=== PATIENT | female | born 1940 | race Caucasian/White ===

== ENCOUNTER 2021-05-14 16:46 | Emergency (ER) | payer MEDICARE, BC, SELFPAY ==
[2021-05-14] VITALS (8 sets, daily range): BP systolic 123–159; BP diastolic 53–83; PULSE 79–103; RESP 14–20; TEMP 36.3–36.9; O2SAT 94–100; BMI 37.2
[2021-05-14 18:46] LABS: Absolute Lymphocyte Count 1.86 X10^3/uL (0.83-4.51); Absolute Neutrophil Count 8.2 X10^3/uL (2.0-7.7); Basophil# 0.06 X10^3/uL; Basophil% 0.5 % (0-1); Eosinophil# 0.18 X10^3/uL; Eosinophils% 1.6 % (0-5); Hematocrit 34.2 % (37-47); Hemoglobin 10.2 g/dL (12.0-15.0); Lymphocyte # 1.86 X10^3/ul (0.83-4.51); Lymphocyte % 16.4 % (19-41); Mean Corp Hgb Conc 29.8 g/dL (32-36); Mean Corpuscular Hgb 25.4 pg (27.0-32.0); Mean Corpuscular Volume 85.3 fL (81-99); Mean Platelet Vol. 9.8 fl (6.2-12.0); Monocyte# 1.01 X10^3/uL; Monocyte% 8.9 % (0-10); NRBC Flagged by Analyzer 0 % (0-5); Neutrophil % 72.2 % (47-70); POSITIVE MORPHOLOGY YES; Platelet Count 484 K/mm3 (150-450); RBC Distribution Width CV 20.5 % (11.6-14.6); RBC Distribution Width SD 63.2 fl (35.1-43.9); Red Blood Count 4.01 M/mm3 (4.2-5.4); White Blood Count 11.4 K/mm3 (4.4-11.0)
[2021-05-14 18:47] LABS: Differential Indicated SCAN CRITERIA MET
[2021-05-14 18:59] LABS: ALB/GLOB Ratio 0.7 RATIO (0.9-2.4); AST(SGOT) 14 U/L (15-37); Alanine Aminotransfer ALT/SGPT 29 U/L (13-56); Alkaline Phosphatase 82 U/L (45-117); Anion Gap 8 (5-15); BUN 18 mg/dL (7-18); BUN/Creat Ratio 20.1 RATIO (10-20); Calcium,Total 9.6 mg/dL (8.5-10.1); Chloride 98 mmol/L (98-107); EST Glomerular Filtration Rate 65 mL/min (>60); Est Glom Filt Rate - Afr Amer 78 mL/min (>60); Globulin 4.3 g/dL (2.2-4.2); Glucose 129 mg/dL (74-106); Potassium 3.1 mmol/L (3.5-5.1); Protein, Total 7.3 g/dL (6.4-8.2); Sodium Level 138 mmol/L (136-145)
--- NOTE | 2021-05-14 19:13 | EKG12_ITS ---
Test Reason : DYSRHYTHMIA Blood Pressure : / mmHG Vent. Rate : 092 BPM Atrial Rate : 092 BPM P-R Int : 162 ms QRS Dur : 094 ms QT Int : 376 ms P-R-T Axes : 051 009 038 degrees QTc Int : 464 ms Normal sinus rhythm Cannot rule out Inferior infarct , age undetermined Abnormal ECG Confirmed by GURMEET LOPEZ, DINORA ([id number]), restaurant expeditor SHELLIE CERVANTES ([id number]) on 05/18/2021 9:45:30 AM Referred By: ELSIE Confirmed By:MIKAYLA LEVI MD
--- NOTE | 2021-05-14 19:15 | EX.ED.DYSGE1 ---
HPI History of Present Illness Chief Complaint: Dizziness Detail of Chief Complaint: Dizziness that started this morning Informant: patient Narrative Narrative: Patient presents to the emergency department complaint of dizziness that started this morning. Patient states that after eating breakfast and taking her pills she started having sudden onset of vertiginous symptoms that made her very nauseated and she vomited several times. She continues to complain of the dizziness. She is not had symptoms like this before. Patient states that she was just discharged from the hospital yesterday for she was admitted to [facility] for CHF and leg edema. Patient's son states that she never saw a chief hydroelectric station operator or a kidney specialist. Patient denies any chest pain or shortness of breath currently. Patient denies fever or recent illness. Patient feels like her legs are starting swell again. Prior similar symptoms: No PFSH PFSH Medical History (Updated 05/14/21 @ 23:[address] Meliton Reza, DO) Acid reflux Anemia Asthma History of malaria Home Medications apixaban [Eliquis] 2.5 mg PO BID 05/14/21 [History Last Taken Unknown] doxepin 25 mg PO QHS 05/14/21 [History Last Taken Unknown] furosemide [Lasix] 40 mg PO DAILY 05/14/21 [History Last Taken Unknown] hydrocodone-acetaminophen 2 tab PO Q8H PRN 05/14/21 [History Last Taken Unknown] levofloxacin 500 mg DAILY 05/14/21 [History Last Taken Unknown] losartan 05/14/21 [History Last Taken Unknown] meclizine 25 mg PO TID PRN #20 tab 05/14/21 [Rx Last Taken Unknown] ondansetron 4 mg PO Q8H PRN PRN #10 tab 05/14/21 [Rx Last Taken Unknown] Allergy/AdvReac Type Severity Reaction Status Date / Time No Known Allergies Allergy Verified 05/14/21 18:35 Social History Smoking Status: Never smoker ROS ROS ED ROS Narrative Dizziness Constitutional Constitutional ED: Reports systems reviewed and no addt'l complaints, except as documented; Denies body ache(s), change in weight or chills Eyes Eyes: Denies acute decrease in peripheral vision, change in vision, double vision or loss of vision ENT ENT ED: Reports none; Denies ear pain, lip swelling, loss taste/smell, neck pain, otalgia or sore throat Cardiovascular Cardiovascular: Reports none; Denies abdominal pain, chest pain with activity, leg edema, lightheadedness, palpitations, rapid heart rate or syncope Respiratory/Chest Respiratory/Chest: Reports none; Denies change in mental status, dry cough, dyspnea, hemoptysis, shortness of breath at rest or shortness of breath with exertion Gastrointestinal Gastrointestinal: Reports none, nausea and vomiting; Denies abdominal pain, change in stool character, diarrhea, hematemesis, hematochezia, melena or rectal bleeding Genitourinary Genitourinary ED: Reports none; Denies abdominal discomfort, anuria, dysuria, genital pain or polyuria Musculoskeletal Musculoskeletal: Reports none; Denies arthralgias, back pain, difficulty walking, extremity pain, muscle weakness or myalgias Integumentary Reports none; Denies abscess or rash Neurologic Neurologic: Reports none; Denies abnormal gait, confusion, focal weakness, frequent falls, headache(s), loss of vision, numbness, paresthesias, radicular pain, vertigo or weakness Psychiatric Psychiatric: Reports systems reviewed and no addt'l complaints, except as documented and none; Denies behavioral changes, confusion, difficulty concentrating, hallucinations, suicidal ideation, tactile hallucinations or visual hallucinations Endocrine Endocrinology: Denies none, cold intolerance, excessive sweating, fatigue or heat intolerance Hematologic/Lymphatic Hematologic/Lymphatic: Reports none; Denies anemia, easy bleeding or easy bruising Allergic/Immunologic Allergic/Immunologic ED: Denies as per HPI, none, lip swelling, mouth swelling, throat swelling, tongue swelling or hives EXAM Physical Exam Const Vital Signs: 05/14/21 16:50 05/14/21 18:27 05/14/21 18:54 Temperature 97.3 F L Temperature Source Temporal Pulse Rate 90 79 Pulse Rate [Lying] Pulse Rate [Sitting] Pulse Rate [Standing] Respiratory Rate 18 15 Respiratory Effort Normal Respiratory Pattern Normal Blood Pressure 135/65 H 123/83 H Blood Pressure [Lying] Blood Pressure [Sitting] Blood Pressure [Standing] Blood Pressure Mean 88 96 Blood Pressure Mean [Lying] Blood Pressure Mean [Sitting] Blood Pressure Mean [Standing] Pulse Ox 97 98 Oxygen Delivery Method Room Air 05/14/21 18:56 05/14/21 18:57 05/14/21 20:02 Temperature 98.4 F 98.4 F 98.2 F Temperature Source Oral Oral Oral Pulse Rate 94 92 103 H Pulse Rate [Lying] 89 Pulse Rate [Sitting] 92 Pulse Rate [Standing] 100 Respiratory Rate 15 16 19 H Respiratory Effort Respiratory Pattern Blood Pressure 140/73 H 140/73 H 153/64 H Blood Pressure [Lying] 131/55 H Blood Pressure [Sitting] 150/69 H Blood Pressure [Standing] 159/71 H Blood Pressure Mean 95 95 93 Blood Pressure Mean [Lying] 80 Blood Pressure Mean [Sitting] 96 Blood Pressure Mean [Standing] 100 Pulse Ox 100 100 98 Oxygen Delivery Method Room Air Room Air Room Air 05/14/21 20:52 05/14/21 23:07 Temperature 97.9 F 98.0 F Temperature Source Oral Temporal Pulse Rate 98 101 H Pulse Rate [Lying] Pulse Rate [Sitting] Pulse Rate [Standing] Respiratory Rate 15 20 H Respiratory Effort Respiratory Pattern Blood Pressure 144/53 H 133/62 H Blood Pressure [Lying] Blood Pressure [Sitting] Blood Pressure [Standing] Blood Pressure Mean 83 85 Blood Pressure Mean [Lying] Blood Pressure Mean [Sitting] Blood Pressure Mean [Standing] Pulse Ox 99 94 Oxygen Delivery Method Room Air Room Air Positive well nourished and well developed General Appearance ED: well developed and NAD HEENT Reports TM's clear and moist mucous membranes normocephalic and atraumatic; Negative for trauma or tenderness Tympanic Membrane ED: Yes TM's clear Eyes PERRL and EOMs intact bilaterally General Eye ED: Negative for pale conjunctiva or scleral icterus Neck no lymphadenopathy, supple and no JVD General: Negative for tenderness Chest Wall inspection of chest normal and palpation of chest normal Chest: Negative for tenderness Resp normal respiratory effort and clear to auscultation bilaterally Effort and Inspection: Negative for respiratory distress or pain with movement Auscultation: Negative for rhonchi, wheezes or diminished lung sounds Cardio regular rate, regular rhythm, S1 normal heart sound, S2 normal heart sound and no murmurs Peripheral Pulses: pulses 2+ throughout GI normal to inspection, nondistended, normoactive bowel sounds, soft to palpation, non-tender, non-distended and no masses Back/Spine no CVA tenderness and no thoracic nor lumbar tenderness Back/Spine Narrative: Evaluation of patient's buttocks and coccyx reveal tenderness palpation over the tip of the coccyx without any evidence of abscess or cellulitis. There is an area of faint erythema noted. No ulcerations noted. Extremity normal to inspection Extremity Narrative: +1 edema both lower extremities. General Extremety ED: Yes edema General Extremity: edema Neuro oriented x3, CN's II-XII intact bilaterally, no sensory deficits noted and gait normal Sensorium / Orientation: awake, alert, oriented to person, oriented to place and oriented to time Motor Exam: strength 5/5 throughout and strength abnormal Psych mental status grossly normal Skin no rashes or lesions noted and no wounds MDM MDM MDM Narrative Medical decision making narrative: Patient to the ED with multiple complaints. Her main issue complaint today was vertigo associated with nausea and vomiting. I suspect likely BP V. Patient was given Antivert and Zofran and her symptoms resolved. Orthostatic vital signs were negative. Lab Data Labs: Laboratory Results - last 24 hr 05/14/21 05/14/21 05/14/21 18:30 18:30 18:30 WBC 11.4 H RBC 4.01 L Hgb 10.2 L Hct 34.2 L MCV 85.3 MCH 25.4 L MCHC 29.8 L RDW Std Deviation 63.2 H RDW Coeff of Khalida 20.5 H Plt Count 484 H MPV 9.8 Immature Gran % (Auto) 0.400 Neut % (Auto) 72.2 H Lymph % (Auto) 16.4 L Terry % (Auto) 8.9 Eos % (Auto) 1.6 Baso % (Auto) 0.5 Absolute Neuts (auto) 8.2 H Absolute Lymphs (auto) 1.86 Nucleated RBC % 0 Platelet Estimate SLT INC RBC Morphology N CHROM Hypochromasia RARE Anisocytosis RARE Ovalocytes RARE Sodium 138 Potassium 3.1 L Chloride 98 Carbon Dioxide 32.0 Anion Gap 8 BUN 18 Creatinine 0.90 Estim Creat Clear Calc 64.60 Est GFR (MDRD) Af Amer 78 Est GFR (MDRD) Non-Af 65 BUN/Creatinine Ratio 20.1 H Glucose 129 H Calcium 9.6 Total Bilirubin 0.40 AST 14 L ALT 29 Alkaline Phosphatase 82 Troponin I High Sens 5.9 B-Natriuretic Peptide Total Protein 7.3 Albumin 3.0 L Globulin 4.3 H Albumin/Globulin Ratio 0.7 L Urine Color Urine Clarity Urine pH Ur Specific [place] Urine Protein Urine Glucose (UA) Urine Ketones Urine Occult Blood Urine Nitrite Urine Bilirubin Urine Urobilinogen Ur Leukocyte Esterase Urine RBC Urine WBC Ur Squamous Epith Cells Urine Bacteria Urine Mucus 05/14/21 05/14/21 18:30 20:10 WBC RBC Hgb Hct MCV MCH MCHC RDW Std Deviation RDW Coeff of [place] Plt Count MPV Immature Gran % (Auto) Neut % (Auto) Lymph % (Auto) Terry % (Auto) Eos % (Auto) Baso % (Auto) Absolute Neuts (auto) Absolute Lymphs (auto) Nucleated RBC % Platelet Estimate RBC Morphology Hypochromasia Anisocytosis Ovalocytes Sodium Potassium Chloride Carbon Dioxide Anion Gap BUN Creatinine Estim Creat Clear Calc Est GFR (MDRD) Af Amer Est GFR (MDRD) Non-Af BUN/Creatinine Ratio Glucose Calcium Total Bilirubin AST ALT Alkaline Phosphatase Troponin I High Sens B-Natriuretic Peptide 12.5 Total Protein Albumin Globulin Albumin/Globulin Ratio Urine Color Yellow Urine Clarity Clear Urine pH 6.5 Ur Specific [place] 1.010 Urine Protein Negative Urine Glucose (UA) Normal Urine Ketones Negative Urine Occult Blood 50 H Urine Nitrite Negative Urine Bilirubin Negative Urine Urobilinogen Normal Ur Leukocyte Esterase 25 H Urine RBC 0-5 SEEN Urine WBC 0-5 SEEN Ur Squamous Epith Cells 0 SEEN Urine Bacteria 0 SEEN Urine Mucus 0 SEEN Radiography Diagnostic Testing: Radiology Impression Chest X-Ray 05/14/21 20:18 IMPRESSION: No acute cardiopulmonary disease. Electronically Signed: Sumanth Guerrier DO at 20:49 EDT Tel [phone], Service support , Sacrum and Coccyx X-Ray 05/14/21 22:40 IMPRESSION: No acute abnormality of the sacrum and coccyx. Electronically Signed: Sumanth Guerrier DO at 23:01 EDT Tel [phone], Service support , 1 view chest x-ray obtained interpreted by myself no acute disease process. Radiology was in agreement. Patient also had x-rays of coccyx and sacrum which were interpreted by myself as normal and radiology in agreement. EKG Initial EKG: Attestation: I personally reviewed and interpreted this EKG as follows: Comments: Sinus rhythm with a ventricular rate of 92 bpm Discharge Plan Triage Chief Complaint: Dizziness ED Provider: Meliton Reza Dx/Rx/DC Orders Clinical Impression: Benign paroxysmal positional vertigo, Chronic coccygeal pain Instructions: ED BPV Vertigo Prescriptions: New ondansetron [ondansetron] 4 MG tablet 4 mg PO Q8H PRN PRN (Reason: Nausea) Qty: 10 RF: 0 meclizine 25 mg tablet 25 mg PO TID PRN (Reason: dizziness) Qty: 20 RF: 0 No Action doxepin 25 mg Capsule 25 mg PO QHS RF: 0 hydrocodone-acetaminophen 5-325 mg Tablet 2 tab PO Q8H PRN (Reason: Pain) RF: 0 levofloxacin 500 mg DAILY RF: 0 furosemide [Lasix] 40 mg Tablet 40 mg PO DAILY RF: 0 Eliquis 2.5 mg Tablet 2.5 mg PO BID RF: 0 losartan RF: 0 Referrals: PADMINI GUZMAN [Other] Activity Restrictions/Additional Instructions: Follow-up you with your family doctor within the next 3 to 5 days Disposition Disposition: Home, Self Care
[2021-05-14 19:24] LABS: Anisocytosis RARE; Hypochromasia RARE; Ovalocyte RARE; Platelet Estimate SLT INC (ADEQ); Red Cell Morphology N CHROM NORMAL (NORM C&C)
[2021-05-14] MEDS: Ondansetron 4 MG/2 ML Vial IV (19:37)
[2021-05-14] MEDS: Meclizine HCl 25 MG Tablet PO ×2 (19:37→23:39)
[2021-05-14 19:58] LABS: Troponin-I HS 5.9 pg/mL (3.0-53.7)
--- NOTE | 2021-05-14 20:18 | RAD_ITS ---
STUDY: X-RAY CHEST REASON FOR EXAM: Female, 81 years old. Dyspnea. TECHNIQUE: Single AP portable view of the chest. COMPARISON: None. FINDINGS: The lungs are clear and expanded. There is no demonstrated pleural abnormality. Normal size heart. Normal mediastinum and yelitza. Normal visualized pulmonary arteries. Normal visualized aortic arch and descending thoracic aorta. Normal visualized thoracic spine. Normal visualized ribs, clavicles, and shoulders. There is no demonstrated abnormality of the visualized soft tissue structures of the upper abdomen. RAD/Chest 1 View (Portable) IMPRESSION: No acute cardiopulmonary disease. Electronically Signed: Sumanth Guerrier DO at 20:49 EDT Tel [phone], Service support ,
[2021-05-14 20:22] LABS: Bacteria 0 SEEN /hpf (None Seen); Mucous, Urine 0 SEEN /hpf (<or=2+); Squamous Epithelial Cells - UA 0 SEEN /hpf (5-10)
[2021-05-14 20:25] LABS: Color, Urine Yellow (Yellow); Glucose, Dipstick Normal (Normal); Ketone-Dipstick Negative (Negative); Leukocyte Esterase-Dipstick 25 /ul (Negative); Nitrite-Dipstick Negative (Negative); Occult Blood-Urine 50 /ul (Negative); Protein-Dipstick Negative (Negative); Urine Bilirubin Dipstick Negative (Negative); Urine Clarity Clear (Clear); Urine Urobilinogen Normal (Normal); Urine pH 6.5 (5.0 - 8.0)
[2021-05-14 20:38] LABS: Red Blood Cells-Urine 0-5 SEEN /hpf (0-5); White Blood Cells 0-5 SEEN /hpf (0-5)
[2021-05-14 21:35] LABS: BNP,B-Type NATRIURETIC PEPTIDE 12.5 pg/mL (0-100)
--- NOTE | 2021-05-14 22:40 | RAD_ITS ---
STUDY: X-RAY - SACRUM/COCCYX REASON FOR EXAM: Female, 81 years old. . Injury. Patient claims her on her buttocks for 2 years. TECHNIQUE: view(s) of the sacrum and coccyx were obtained. COMPARISON: None. FINDINGS: Normal bilateral sacroiliac joints. Normal visualized sacral ala and fused sacral bodies. Normal sacrococcygeal junction with a normal angulation. Normal coccygeal segments. The presacral soft tissue structures are unremarkable. There is evidence of internal fixation of a now healed right femoral fracture. RAD/Sacrum-Coccyx min 2 Views IMPRESSION: No acute abnormality of the sacrum and coccyx. Electronically Signed: Sumanth Guerrier DO at 23:01 EDT Tel [phone], Service support ,
[2021-05-14] MEDS: Ondansetron ODT 4 MG Tablet PO (23:39)
== END 2021-05-14 23:49 | disposition home or self-care (01) ==
PROVIDERS: Emergency Provider Emergency Medicine
DX: H81.10 Benign paroxysmal vertigo, unspecified ear (principal); M53.3 Sacrococcygeal disorders, not elsewhere classified; I50.9 Heart failure, unspecified; D64.9 Anemia, unspecified; K21.9 Gastro-esophageal reflux disease without esophagitis; Z79.899 Other long term (current) drug therapy; Z79.01 Long term (current) use of anticoagulants
CPT/HCPCS: 71045; 72220; 80053; 81001; 83880; 84484; 85025; 93005; 96374; 99285; A4216; J2405

== ENCOUNTER → 2021-07-20 05:00 | Outpatient (REF) | payer MEDICARE, BC, SELFPAY ==
[2021-07-20 08:44] LABS: Hematocrit 28.5 % (37-47); Hemoglobin 8.4 g/dL (12.0-15.0); Mean Corp Hgb Conc 29.5 g/dL (32-36); Mean Corpuscular Hgb 26.3 pg (27.0-32.0); Mean Corpuscular Volume 89.1 fL (81-99); Mean Platelet Vol. 9.8 fl (6.2-12.0); Platelet Count 456 K/mm3 (150-450); RBC Distribution Width CV 15.1 % (11.6-14.6); RBC Distribution Width SD 49.1 fl (35.1-43.9); White Blood Count 10.2 K/mm3 (4.4-11.0)
[2021-07-20 08:59] LABS: Vitamin B12 642 pg/mL (211-911)
[2021-07-20 09:09] LABS: Anion Gap 6 (5-15); BUN 15 mg/dL (7-18); BUN/Creat Ratio 17.9 RATIO (10-20); Calcium,Total 9.6 mg/dL (8.5-10.1); Chloride 103 mmol/L (98-107); Cholesterol 196 mg/dL (200); Creatinine, Serum 0.84 mg/dL (0.55-1.02); EST Glomerular Filtration Rate 70 mL/min (>60); Est Glom Filt Rate - Afr Amer 84 mL/min (>60); Ferritin 29 ng/mL (8-252); Glucose 156 mg/dL (74-106); High Density Lipoprotein 41 mg/dL; Iron 14 ug/dL (50-170); Magnesium 2.4 mg/dL (1.6-2.6); Potassium 4.3 mmol/L (3.5-5.1); Sodium Level 138 mmol/L (136-145); Thyroid Stim Hormone (TSH) 0.61 uIU/mL (0.358-3.74); Triglycerides 162 mg/dL; Very Low Density Lipoprotein 32 mg/dL (5-40)
[2021-07-20 09:13] LABS: Hemoglobin A1c 6.6 % (3.8-5.6)
== END ==
LOC: OLS.SWAL 05:00
PROVIDERS: Visit Provider Internal Medicine
DX: I12.9 Hypertensive chronic kidney disease with stage 1 through stage 4 chronic kidney disease, or unspecified chronic kidney disease (principal); N18.30 Chronic kidney disease, stage 3 unspecified; D50.9 Iron deficiency anemia, unspecified; I89.0 Lymphedema, not elsewhere classified; M35.3 Polymyalgia rheumatica; Z79.899 Other long term (current) drug therapy
CPT/HCPCS: 36415; 80048; 80061; 82607; 82728; 83036; 83540; 83735; 84443; 85027

== ENCOUNTER → 2021-08-07 05:00 | Outpatient (REF) | payer MEDICARE, BC, SELFPAY ==
[2021-08-07 09:08] LABS: Anion Gap 5 (5-15); BUN 25 mg/dL (7-18); BUN/Creat Ratio 25.4 RATIO (10-20); Calcium,Total 9.7 mg/dL (8.5-10.1); Chloride 105 mmol/L (98-107); Creatinine, Serum 0.98 mg/dL (0.55-1.02); EST Glomerular Filtration Rate 58 mL/min (>60); Est Glom Filt Rate - Afr Amer 70 mL/min (>60); Glucose 155 mg/dL (74-106); Potassium 4.5 mmol/L (3.5-5.1); Sodium Level 138 mmol/L (136-145)
== END ==
LOC: OLS.SWAL 05:00
PROVIDERS: Visit Provider Internal Medicine
DX: I10 Essential (primary) hypertension (principal)
CPT/HCPCS: 36415; 80048

== ENCOUNTER 2021-08-12 10:03 | Emergency (ER) | payer MEDICARE, BC, SELFPAY ==
[2021-08-12 10:04] VITALS: BP 139/58; PULSE 95; RESP 18; TEMP 36.6; O2SAT 97; BMI 35.5
--- NOTE | 2021-08-12 11:09 | EDS_ITS ---
HPI History of Present Illness Chief Complaint: Back Informant: patient Onset/Context/Timing Onset: Weeks Context: Gradual Onset Timing: Continuous Quality: Sharp and Aching Location: Lumbar Current Severity: Mild Maximum Severity: Mild Worsened by: worse with Nothing Relieved by: Not Relieved By Nothing Associated Symptoms Associated Symptoms: Negative for Numbness, Tingling, Radiation to Right Leg, Radiation to Left Leg, Fever, Abdominal Pain, Dysuria, Unable to Ambulate, Unable to Transfer, Urinary Retention, Urinary Incontinence, Constipation and Fecal Incontinence Narrative Narrative: 41-year-old female history of chronic kidney disease and pulmonary emboli on Eliquis. States for about a month she has had back pain right lower back along the iliac crest and lateral to the spine. She denies any falls, injury or trauma. She denies any fever. She really had no dysuria. Said she had a change in her urine yesterday. No prior back history or back surgery. She denies any radiation to her legs or weakness. Prior similar symptoms: No Recent Illness/Hospitalization: No PFSH PFS Medical History Acid reflux Anemia Asthma Benign paroxysmal positional vertigo Chronic kidney disease, stage 3 Essential hypertension History of malaria Iron deficiency anemia Lymphedema Polymyalgia rheumatica Pulmonary embolism Thrombocythemia Home Medications apixaban [Eliquis] 2.5 mg PO BID 05/14/21 [History Last Taken Unknown] doxepin 25 mg PO QHS 05/14/21 [History Last Taken Unknown] furosemide [Lasix] 40 mg PO DAILY 05/14/21 [History Last Taken Unknown] hydrocodone-acetaminophen 2 tab PO Q8H PRN 05/14/21 [History Last Taken Unknown] albuterol sulfate 90 mcg/actuation aerosol inhaler 2 puff INHALATION Q6H PRN 08/03/21 [History Last Taken Unknown] ezetimibe 10 mg tablet 10 mg PO DAILY 08/03/21 [History Last Taken Unknown] losartan 50 mg PO DAILY 08/03/21 [History Last Taken Unknown] pantoprazole 40 mg tablet,delayed release 40 mg PO DAILY 08/03/21 [History Last Taken Unknown] prednisone 5 mg tablet 5 mg PO DAILY 08/03/21 [History Last Taken Unknown] acetaminophen 650 mg PO Q4H PRN 08/12/21 [History Last Taken Unknown] potassium chloride 40 meq PO DAILY 08/12/21 [History Last Taken Unknown] Allergy/AdvReac Type Severity Reaction Status Date / Time cefuroxime [From Ceftin] AdvReac Severe Itching Verified 08/12/21 10:09 [id number] Reductase AdvReac Severe Other Verified 08/12/21 10:09 Inhibitor prochlorperazine AdvReac Intermediate Other Verified 08/12/21 10:09 [From Compazine] Family History Mother Cancer of eye Brother Heart disease Alzheimer disease Surgical History History of appendectomy Status post right foot surgery Social History Smoking Status: Never smoker second hand exposure: No alcohol intake: never substance use type: does not use deana/oriental orthodox: Lutheran seatbelt use: always do you feel safe at home: Yes ROS ROS ED ROS Narrative Denies. Other than the back pain. Review of Systems ROS Unobtainable: Denies due to encephalopathy Constitutional Constitutional ED: Denies chills or fever(s) Eyes Eyes: Denies change in vision ENT ENT ED: Denies ear pain Cardiovascular Cardiovascular: Denies chest pain Respiratory/Chest Respiratory/Chest: Denies dyspnea Gastrointestinal Gastrointestinal: Denies abdominal pain, nausea or vomiting Genitourinary Genitourinary ED: Denies dysuria Musculoskeletal Musculoskeletal: Reports back pain; Denies myalgias Integumentary Denies rash Neurologic Neurologic: Denies headache(s) Psychiatric Psychiatric: Denies depression Endocrine Endocrinology: Denies polyuria Hematologic/Lymphatic Hematologic/Lymphatic: Denies easy bruising Allergic/Immunologic Allergic/Immunologic ED: Denies urticaria EXAM Physical Exam Narrative Exam Narrative: 81-year-old female no acute distress vital signs stable afebrile. HEENT exam unremarkable. Lungs clear to auscultation. Heart regular rhythm no murmur. Abdomen soft nontender nondistended normal bowel sounds no peritoneal signs. She does have a chronic umbilical hernia is nontender. Both lower quadrants are nontender there is no other hernias noted. There is no pulsatile mass. Back spine nontender. She has right lower back tenderness over iliac crest. There is no ecchymosis or bruising no redness or warmth. No signs of trauma. She has normal range of motion both lower and upper extremities. Normal strength. Dorsi plantarflexion intact. No cauda equina signs seizure. Neurologically she is awake alert with no focal motor deficits. Const Vital Signs: 08/12/21 10:04 Temperature 97.8 F Temperature Source Oral Pulse Rate 95 Respiratory Rate 18 Blood Pressure 139/58 H Blood Pressure Mean 85 Pulse Ox 97 Oxygen Delivery Method Room Air Positive well nourished and well developed; Negative for cachectic, contractures or unkempt General Appearance ED: well developed and NAD; Negative for unkempt, cachectic, contractures or pallor Nutritional Appearance: Negative for cachectic HEENT Reports moist mucous membranes Negative for trauma or tenderness Eyes PERRL and EOMs intact bilaterally Neck no lymphadenopathy, supple and no JVD General: Negative for tenderness Resp normal respiratory effort and clear to auscultation bilaterally Effort and Inspection: Negative for pain with movement Cardio regular rate, regular rhythm, S1 normal heart sound, S2 normal heart sound and no murmurs GI normal to inspection, nondistended, normoactive bowel sounds, soft to palpation, non-tender, non-distended and no masses Inspection: Negative for abdominal distention Palpation: Negative for tender, guarding or rebound tenderness present Back/Spine normal to inspection and no thoracic nor lumbar tenderness General Back: Negative for CVA tenderness or scar(s) Extremity normal to inspection General Extremety ED: Negative for edema or tenderness General Extremity: Negative for edema Psych mental status grossly normal Appearance: Negative for unkempt Mood & Affect: Negative for depressed or tearful Skin no rashes or lesions noted and no wounds General Skin Exam: Negative for jaundice or pallor MDM MDM MDM Narrative Medical decision making narrative: 41-year-old low back pain. No signs or history of trauma. No dysuria. Checking a UA and an x-ray. I do not think labs would be of any benefit. Repeat exam patient doing well at 3:25 PM she received 1 p.o. [place] for pain. She is at a [facility] and has a day been using for pain. She and I went over her test results. This does appear to be musculoskeletal etiology. She does have L4 compression fracture is old. There is no signs of a UTI nor acute kidney stone. She will be discharged back to the extended care facility. Lab Data Attestation: I reviewed the patient's lab results. Lab results narrative: Urinalysis shows 25-50 red blood cells. No white blood cells. No bacteria. No nitrites. CT was done which showed renal stones but no acute ureteral calculi. Labs: Laboratory Results - last 24 hr 08/12/21 11:20 Urine Color Yellow Urine Clarity Sl. Cloudy Urine pH 6.0 Ur Specific [place] 1.015 Urine Protein 15 H Urine Glucose (UA) Normal Urine Ketones Negative Urine Occult Blood 250 H Urine Nitrite Negative Urine Bilirubin Negative Urine Urobilinogen Normal Ur Leukocyte Esterase 25 H Urine RBC 25-50 SEEN Urine WBC 0-5 SEEN Ur Squamous Epith Cells 0 SEEN Urine Bacteria 0 SEEN Urine Mucus 0 SEEN Radiography X-Ray: LS SPine Diagnostic Testing: Clinical Impression(s) from Imaging Studies Cervical Spine X-Ray 08/12/21 11:25 IMPRESSION: Multilevel spondylosis. Electronically Signed: Ryan Main MD at 11:57 EDT , Service support , Lumbar Spine X-Ray 08/12/21 13:35 IMPRESSION: Degenerative changes of the spine, as detailed above. Loss of height of the L4 vertebrae and loss of height of the superior endplate of the L3 vertebrae. Electronically Signed: Ryan Main MD at 14:11 EDT , Service support , Abdomen/Pelvis CT 08/12/21 13:36 IMPRESSION: Bilateral nonobstructive intrarenal calculi more prominent on the right side. Umbilical hernia containing fat. Hepatic cyst. Scattered pancreatic calcifications. Complete collapse of the L4 vertebrae. Loss of height of the L3 vertebrae. Electronically Signed: Ryan Main MD at 14:10 EDT , Service support , Lumbar spine film 3 views interpreted by myself and radiologist shows chronic degenerative changes and collapse of the L4 vertebral body.. Cervical spine was done shows chronic changes. This was inadvertently obtained it was supposed to be ordered as LS-spine film. CT abdomen pelvis showed no acute findings. Renal calculi. And prior seen lumbar vertebral body changes. This is read by the radiologist and reviewed by me. Discharge Plan Triage Chief Complaint: Back ED Provider: Aris Augustine Dx/Rx/DC Orders Clinical Impression: Back pain Instructions: ED Back and Neck Pain, General Prescriptions: No Action pantoprazole 40 mg tablet,delayed release (DR/EC) 40 mg PO DAILY RF: 0 prednisone 5 mg tablet 5 mg PO DAILY RF: 0 ezetimibe [Zetia] 10 mg tablet 10 mg PO DAILY RF: 0 albuterol sulfate [Ventolin HFA] 90 mcg/actuation HFA aerosol inhaler 2 puff inhalation Q6H PRN (Reason: SOB) RF: 0 doxepin 25 mg Capsule 25 mg PO QHS RF: 0 hydrocodone-acetaminophen 5-325 mg Tablet 2 tab PO Q8H PRN (Reason: Pain) RF: 0 furosemide [Lasix] 40 mg Tablet 40 mg PO DAILY RF: 0 Eliquis 2.5 mg Tablet 2.5 mg PO BID RF: 0 losartan 50 mg 50 mg PO DAILY RF: 0 acetaminophen 325 mg Tablet 650 mg PO Q4H PRN (Reason: PAIN/FEVER) RF: 0 potassium chloride 20 mEq Tablet Extended Release 40 meq PO DAILY RF: 0 Primary Care Provider: Leidy Santiago Referrals: Leidy Santiago MD [Primary Care Provider] - 3-5 Days if not improving Activity Restrictions/Additional Instructions: Patient urinalysis was unremarkable. There is no signs of any type of kidney stone causing her pain. This appears to be musculoskeletal back pain. On x- rays of her spine she has an old compression fracture of L4 which may or may not be causing her pain but that does not acute today. Or recently. You can take continue using [place] for her pain. Follow-up with your medical technologist chief if not improving. Disposition Disposition: Home, Self Care
--- NOTE | 2021-08-12 11:25 | RAD_ITS ---
STUDY: X-RAY - CERVICAL SPINE REASON FOR EXAM: Female, 81 years old. Atraumatic pain TECHNIQUE: 3 view(s) of the cervical spine were obtained. COMPARISON: None FINDINGS: Normal anterior atlantoaxial articulation. Normal odontoid process. Normal cervical lordosis. There is multi-level endplate spondylosis. Normal disc space heights. Normal visualized intervertebral neuroforamina. The soft tissue structures are unremarkable. RAD/Cerv Spine 2 or 3 Views IMPRESSION: Multilevel spondylosis. Electronically Signed: Ryan Main MD at 11:57 EDT , Service support ,
[2021-08-12 11:26] LABS: Bacteria 0 SEEN /hpf (None Seen); Mucous, Urine 0 SEEN /hpf (<or=2+); Squamous Epithelial Cells - UA 0 SEEN /hpf (5-10)
[2021-08-12 11:35] LABS: Color, Urine Yellow (Yellow); Glucose, Dipstick Normal (Normal); Ketone-Dipstick Negative (Negative); Leukocyte Esterase-Dipstick 25 /ul (Negative); Nitrite-Dipstick Negative (Negative); Occult Blood-Urine 250 /ul (Negative); Protein-Dipstick 15 mg/dl (Negative); Specific Gravity, Urine 1.015 (1.002-1.030); Urine Bilirubin Dipstick Negative (Negative); Urine Clarity Sl. Cloudy (Clear); Urine Urobilinogen Normal (Normal)
[2021-08-12 11:44] LABS: Red Blood Cells-Urine 25-50 SEEN /hpf (0-5); White Blood Cells 0-5 SEEN /hpf (0-5)
[2021-08-12] MEDS: HYDROcodone Bitartrate/Apap 5/325 Tablet PO (13:27)
--- NOTE | 2021-08-12 13:35 | RAD_ITS ---
STUDY: X-RAY - LUMBAR SPINE REASON FOR EXAM: Female, 81 years old. Atraumatic pain TECHNIQUE: 3 view(s) of the lumbar spine were obtained. COMPARISON: None FINDINGS: Normal lumbar lordosis. There is no substantial scoliosis. Grade 1 anterior listhesis of L4 on L5. Almost complete collapse of the L4 vertebrae. This is sclerotic and most likely is old. 20% loss of right of the superior endplate of the L3 vertebrae. There is multi-level degenerative disc disease with multi-level disc space narrowing. There is atherosclerotic calcification of the abdominal aorta without a demonstrated aneurysm. RAD/L/S Spine Min 4 Views IMPRESSION: Degenerative changes of the spine, as detailed above. Loss of height of the L4 vertebrae and loss of height of the superior endplate of the L3 vertebrae. Electronically Signed: Ryan Main MD at 14:11 EDT , Service support ,
--- NOTE | 2021-08-12 13:36 | CT_ITS ---
STUDY: CT ABDOMEN AND PELVIS WITHOUT CONTRAST REASON FOR EXAM: Female, 81 years old. Lumbar pain and flank pain. RADIATION DOSAGE (If Supplied By Facility): CTDIvol = ( 16.19 ) mGy, DLP = ( 728.05 ) mGycm TECHNIQUE: Transaxial images were obtained from the dome of the diaphragm to the symphysis pubis without oral contrast, and without intravenous contrast. Sagittal and coronal images were reconstructed. Individualized dose optimization techniques were used for this CT. COMPARISON: None. FINDINGS: Mild linear scarring at the lung bases. Coronary artery calcification. There is a 2.4 cm x 2.57 m cyst in the inferior aspect of the right lobe of the liver. Normal gallbladder and extrahepatic biliary system. Normal spleen. There are scattered pancreatic calcifications in the distribution of the ducts consistent with chronic pancreatitis. Normal bilateral adrenal glands. Normal right kidney. There is a 3 mm nonobstructive calculus in the mid upper portion of the left kidney. 2.5 mm calculus and a 4 mm calculus in the lower pole calyx of the left kidney. There is a 7.5 mm calculus in the lower pole calyx of the right kidney. Multiple tiny calculi are also seen in the inferior pole of the right kidney. There is a small hiatal hernia. Normal small intestine. There are multiple colonic diverticula consistent with diverticulosis. The appendix is visualized and appears normal. There is scattered atherosclerotic calcification of the abdominal aorta, without a demonstrated aneurysm. Normal inferior vena cava. Normal retroperitoneum. Normal urinary bladder. There is a small umbilical hernia containing fat. The neck of the hernia measures 2 cm. There is almost complete collapse of the L4 vertebrae. This is sclerotic and most likely is old and nature. Loss of height of the superior endplate of the L3 vertebra and this may be acute. Status post right intramedullary harvinder fixation of the proximal femur. CT/Abdomen/Pelvis without Cont IMPRESSION: Bilateral nonobstructive intrarenal calculi more prominent on the right side. Umbilical hernia containing fat. Hepatic cyst. Scattered pancreatic calcifications. Complete collapse of the L4 vertebrae. Loss of height of the L3 vertebrae. Electronically Signed: Ryan Main MD at 14:10 EDT , Service support ,
== END 2021-08-12 15:40 | disposition home or self-care (01) ==
PROVIDERS: Emergency Provider Emergency Medicine; PCP Internal Medicine
DX: M48.56XA Collapsed vertebra, not elsewhere classified, lumbar region, initial encounter for fracture (principal); M47.816 Spondylosis without myelopathy or radiculopathy, lumbar region; M47.812 Spondylosis without myelopathy or radiculopathy, cervical region; I12.9 Hypertensive chronic kidney disease with stage 1 through stage 4 chronic kidney disease, or unspecified chronic kidney disease; N18.30 Chronic kidney disease, stage 3 unspecified; K21.9 Gastro-esophageal reflux disease without esophagitis; Z79.01 Long term (current) use of anticoagulants; Z79.52 Long term (current) use of systemic steroids; Z79.899 Other long term (current) drug therapy; Z86.711 Personal history of pulmonary embolism
CPT/HCPCS: 72040; 72110; 74176; 81001; 99284

== ENCOUNTER → 2021-08-17 05:00 | Outpatient (REF) | payer MEDICARE, BC, SELFPAY ==
[2021-08-17 07:12] LABS: Hematocrit 28.2 % (37-47); Hemoglobin 8.2 g/dL (12.0-15.0); Mean Corp Hgb Conc 29.1 g/dL (32-36); Mean Corpuscular Hgb 25.1 pg (27.0-32.0); Mean Corpuscular Volume 86.2 fL (81-99); Mean Platelet Vol. 9.8 fl (6.2-12.0); Platelet Count 496 K/mm3 (150-450); RBC Distribution Width CV 15.8 % (11.6-14.6); Red Blood Count 3.27 M/mm3 (4.2-5.4); White Blood Count 12.2 K/mm3 (4.4-11.0)
[2021-08-17 07:48] LABS: Anion Gap 8 (5-15); BUN 24 mg/dL (7-18); BUN/Creat Ratio 24.6 RATIO (10-20); Calcium,Total 9.5 mg/dL (8.5-10.1); Chloride 104 mmol/L (98-107); Creatinine, Serum 0.98 mg/dL (0.55-1.02); EST Glomerular Filtration Rate 59 mL/min (>60); Est Glom Filt Rate - Afr Amer 71 mL/min (>60); Glucose 171 mg/dL (74-106); Potassium 4.5 mmol/L (3.5-5.1); Sodium Level 139 mmol/L (136-145)
== END ==
LOC: OLS.SWAL 05:00
PROVIDERS: Visit Provider Internal Medicine
DX: D64.9 Anemia, unspecified (principal)
CPT/HCPCS: 36415; 80048; 85027

== ENCOUNTER 2021-08-23 14:28 | Emergency (ER) | payer MEDICARE, BC, SELFPAY ==
[2021-08-23 14:28] VITALS: BP 145/71; PULSE 114; RESP 18; TEMP 36.3; BMI 36.1
--- NOTE | 2021-08-23 15:08 | ED.VIS.BACK ---
HPI History of Present Illness Chief Complaint: Back Detail of Chief Complaint: Back pain that started about a month ago Narrative Narrative: Patient presents with back pain that started a month ago. Patient was seen in the emergency department 2 weeks ago and had imaging that showed compression fracture of L4. Patient denies trauma to her back. Patient taken hydrocodone but not having much pain relief. Patient states that she has had difficult time having bowel movements over last several days and feels like she needs to go today but cannot. Patient tried taking Metamucil without results. Patient thinks the pain medications make her constipated. Patient denies pain rating down her legs. She denies weakness in extremities. Patient denies urinary symptoms. [facility] Medical History (Updated 08/23/21 @ 17:[address] Meliton Reza, ) Acid reflux Anemia Asthma Benign paroxysmal positional vertigo Chronic kidney disease, stage 3 Essential hypertension History of Palmer's esophagus History of malaria Iron deficiency anemia Leukocytosis Lymphedema Polymyalgia rheumatica Pulmonary embolism Thrombocythemia Home Medications apixaban [Eliquis] 2.5 mg PO BID 05/14/21 [History Last Taken Unknown] doxepin 25 mg PO QHS 05/14/21 [History Last Taken Unknown] furosemide [Lasix] 40 mg PO DAILY 05/14/21 [History Last Taken Unknown] hydrocodone-acetaminophen 2 tab PO Q8H PRN 05/14/21 [History Last Taken Unknown] albuterol sulfate 90 mcg/actuation aerosol inhaler 2 puff INHALATION Q6H PRN 08/03/21 [History Last Taken Unknown] ezetimibe 10 mg tablet 10 mg PO DAILY 08/03/21 [History Last Taken Unknown] losartan 50 mg PO DAILY 08/03/21 [History Last Taken Unknown] pantoprazole 40 mg tablet,delayed release 40 mg PO DAILY 08/03/21 [History Last Taken Unknown] prednisone 5 mg tablet 5 mg PO DAILY 08/03/21 [History Last Taken Unknown] acetaminophen 650 mg PO Q4H PRN 08/12/21 [History Last Taken Unknown] potassium chloride 40 meq PO DAILY 08/12/21 [History Last Taken Unknown] fentanyl 1 patch TRANSDERMAL Q72H 7 Days #2 ea 08/23/21 [Rx Last Taken Unknown] prednisone 20 mg PO BID #6 tab 08/23/21 [Rx Last Taken Unknown] Allergy/AdvReac Type Severity Reaction Status Date / Time cefuroxime [From Ceftin] AdvReac Severe Itching Verified 08/23/21 14:28 [id number] Reductase AdvReac Severe Other Verified 08/23/21 14:28 Inhibitor prochlorperazine AdvReac Intermediate Other Verified 08/23/21 14:28 [From Compazine] Family History Mother Cancer of eye Brother Heart disease Alzheimer disease Surgical History History of appendectomy Status post right foot surgery Social History Smoking Status: Never smoker second hand exposure: No alcohol intake: never substance use type: does not use deana/presybeterian: Nondenominational seatbelt use: always do you feel safe at home: Yes ROS ROS ED Constitutional Constitutional ED: Reports systems reviewed and no addt'l complaints, except as documented; Denies body ache(s), change in weight or chills Eyes Eyes: Denies acute decrease in peripheral vision, change in vision, double vision or loss of vision ENT ENT ED: Reports none; Denies ear pain, lip swelling, loss taste/smell, neck pain, otalgia or sore throat Cardiovascular Cardiovascular: Reports none; Denies abdominal pain, chest pain with activity, leg edema, lightheadedness, palpitations, rapid heart rate or syncope Respiratory/Chest Respiratory/Chest: Reports none; Denies change in mental status, dry cough, dyspnea, hemoptysis, shortness of breath at rest or shortness of breath with exertion Gastrointestinal Gastrointestinal: Reports none and constipation; Denies abdominal pain, change in stool character, diarrhea, hematemesis, hematochezia, melena, rectal bleeding or vomiting Genitourinary Genitourinary ED: Reports none; Denies abdominal discomfort, anuria, dysuria, genital pain or polyuria Musculoskeletal Musculoskeletal: Reports none and back pain; Denies arthralgias, difficulty walking, extremity pain, muscle weakness or myalgias Integumentary Reports none; Denies abscess or rash Neurologic Neurologic: Reports none; Denies abnormal gait, confusion, focal weakness, frequent falls, headache(s), loss of vision, numbness, paresthesias, radicular pain, vertigo or weakness Psychiatric Psychiatric: Reports systems reviewed and no addt'l complaints, except as documented and none; Denies behavioral changes, confusion, difficulty concentrating, hallucinations, suicidal ideation, tactile hallucinations or visual hallucinations Endocrine Endocrinology: Denies none, cold intolerance, excessive sweating, fatigue or heat intolerance Hematologic/Lymphatic Hematologic/Lymphatic: Reports none; Denies anemia, easy bleeding or easy bruising Allergic/Immunologic Allergic/Immunologic ED: Denies as per HPI, none, lip swelling, mouth swelling, throat swelling, tongue swelling or hives EXAM Physical Exam Const Vital Signs: 08/23/21 14:28 08/23/21 17:25 Temperature 97.3 F L Temperature Source Temporal Pulse Rate 114 H 85 Respiratory Rate 18 16 Blood Pressure 145/71 H Blood Pressure Mean 95 Pulse Ox 98 Positive well nourished and well developed General Appearance ED: well developed and NAD HEENT Reports TM's clear and moist mucous membranes normocephalic and atraumatic; Negative for trauma or tenderness Tympanic Membrane ED: Yes TM's clear Eyes PERRL and EOMs intact bilaterally General Eye ED: Negative for pale conjunctiva or scleral icterus Neck no lymphadenopathy, supple and no JVD General: Negative for tenderness Chest Wall inspection of chest normal and palpation of chest normal Chest: Negative for tenderness Resp normal respiratory effort and clear to auscultation bilaterally Effort and Inspection: Negative for respiratory distress or pain with movement Auscultation: Negative for rhonchi, wheezes or diminished lung sounds Cardio regular rate, regular rhythm, S1 normal heart sound, S2 normal heart sound and no murmurs Peripheral Pulses: pulses 2+ throughout GI normal to inspection, nondistended, normoactive bowel sounds, soft to palpation, non-tender, non-distended and no masses Narrative: Rectal exam performed showed that patient had normal perianal sensation and normal rectal tone. Small amount of brown stool in the rectal vault without impaction. No masses palpated. Back/Spine no CVA tenderness and no thoracic nor lumbar tenderness Extremity normal to inspection Extremity Narrative: I am unable to reproduce her pain with palpation of her back. She describes the pain more over the sacroiliac joints bilaterally. Negative straight leg raises. Deep tendon reflexes are plus 2 out of 4 bilaterally at the patella and Achilles. Patient has normal 5 extension. Patient has normal sensation to light touch. General Extremety ED: Negative for edema General Extremity: Negative for edema Neuro oriented x3, CN's II-XII intact bilaterally, no sensory deficits noted and gait normal Sensorium / Orientation: awake, alert, oriented to person, oriented to place and oriented to time Motor Exam: strength 5/5 throughout and strength abnormal Psych mental status grossly normal Skin no rashes or lesions noted and no wounds MDM MDM MDM Narrative Medical decision making narrative: IV line established on arrival. Patient was medicated morphine and Zofran and she had good pain relief with that. KUB showed large amount of stool throughout the colon. Rectal exam showed no impaction. Patient given a soapsuds enema and she had large results with that and pain the immediately improved. Patient will be given a Duragesic patch for home and she still has hydrocodone as needed for severe pain. I will give her referral to pain management physician as well. Patient has history of PMR and will increase her steroids for a short burst for the next 3 days. Lab Data Attestation: I reviewed the patient's lab results. Labs: Laboratory Results - last 24 hr 08/23/21 08/23/21 15:21 15:21 WBC 12.7 H RBC 3.68 L Hgb 9.5 L Hct 32.0 L MCV 87.0 MCH 25.8 L MCHC 29.7 L RDW Std Deviation 52.4 H RDW Coeff of Khalida 18.3 H Plt Count 440 MPV 9.6 Immature Gran % (Auto) 0.200 Neut % (Auto) 71.0 H Lymph % (Auto) 17.3 L Meagher % (Auto) 10.5 H Eos % (Auto) 0.8 Baso % (Auto) 0.2 Absolute Neuts (auto) 9.0 H Absolute Lymphs (auto) 2.20 Nucleated RBC % 0 Sodium 137 Potassium 3.5 Chloride 101 Carbon Dioxide 27.0 Anion Gap 9 BUN 23 H Creatinine 1.07 H Estim Creat Clear Calc 50.98 Est GFR (MDRD) Af Amer 64 Est GFR (MDRD) Non-Af 53 L BUN/Creatinine Ratio 21.5 H Glucose 98 Calcium 9.6 Radiography Diagnostic Testing: Clinical Impression(s) from Imaging Studies KUB X-Ray 08/23/21 15:50 IMPRESSION: Non-obstructive bowel gas pattern. Colonic fecal retention compatible with clinical constipation. at 1616 Reported and signed by: Tom Pedro MD Electronically Signed: Tom Pedro MD at 16:15 EDT Tel , Service support , 1 view KUB obtained interpreted by myself as large amount of stool throughout the colon. Radiology in agreement. Discharge Plan Triage Chief Complaint: Back ED Provider: Meliton Reza Dx/Rx/DC Orders Clinical Impression: Back pain, Compression fx, lumbar spine, Constipation Instructions: ED Back Pain (Acute or Chronic), ED Fracture, Vertebral Compression, ED Constipation (Adult) Prescriptions: New fentanyl 25 mcg/hr patch 72 hour 1 patch transdermal Q72H 7 Days Qty: 2 RF: 0 prednisone 20 mg tablet 20 mg PO BID Qty: 6 RF: 0 No Action pantoprazole 40 mg tablet,delayed release (DR/EC) 40 mg PO DAILY RF: 0 prednisone 5 mg tablet 5 mg PO DAILY RF: 0 ezetimibe [Zetia] 10 mg tablet 10 mg PO DAILY RF: 0 albuterol sulfate [Ventolin HFA] 90 mcg/actuation HFA aerosol inhaler 2 puff inhalation Q6H PRN (Reason: SOB) RF: 0 doxepin 25 mg Capsule 25 mg PO QHS RF: 0 hydrocodone-acetaminophen 5-325 mg Tablet 2 tab PO Q8H PRN (Reason: Pain) RF: 0 furosemide [Lasix] 40 mg Tablet 40 mg PO DAILY RF: 0 Eliquis 2.5 mg Tablet 2.5 mg PO BID RF: 0 losartan 50 mg 50 mg PO DAILY RF: 0 acetaminophen 325 mg Tablet 650 mg PO Q4H PRN (Reason: PAIN/FEVER) RF: 0 potassium chloride 20 mEq Tablet Extended Release 40 meq PO DAILY RF: 0 Primary Care Provider: Care Physician,No Primary Referrals: Rhonda Raman MD [STAFF PHYSICIAN] - 3-5 Days Care Physician,No Primary [Primary Care Provider] - Activity Restrictions/Additional Instructions: See your doctor in 3 to 5 days Disposition Disposition: Home, Self Care
[2021-08-23] MEDS: Morphine 4 MG/ML Syringe IV (15:24)
[2021-08-23 15:28] LABS: Basophil# 0.03 X10^3/uL; Basophil% 0.2 % (0-1); Eosinophils% 0.8 % (0-5); Hemoglobin 9.5 g/dL (12.0-15.0); Lymphocyte % 17.3 % (19-41); Mean Corp Hgb Conc 29.7 g/dL (32-36); Mean Corpuscular Hgb 25.8 pg (27.0-32.0); Mean Platelet Vol. 9.6 fl (6.2-12.0); Monocyte# 1.34 X10^3/uL; Monocyte% 10.5 % (0-10); NRBC Flagged by Analyzer 0 % (0-5); Neutrophil # 9.03 X10^3/uL (2.7-7.7); Platelet Count 440 K/mm3 (150-450); RBC Distribution Width CV 18.3 % (11.6-14.6); RBC Distribution Width SD 52.4 fl (35.1-43.9); Red Blood Count 3.68 M/mm3 (4.2-5.4); White Blood Count 12.7 K/mm3 (4.4-11.0)
--- NOTE | 2021-08-23 15:50 | RAD_ITS ---
HISTORY: constipation EXAMINATION/TECHNIQUE: XR Abdomen 1 View: AP upright KUB COMPARISON: L-spines series 08/12/21 FINDINGS: LINES AND TUBES: None. BOWEL GAS PATTERN: Non-obstructive. Extensive colonic fecal retention. FREE AIR: None. ORGANOMEGALY: Not seen. CALCIFICATIONS: No abnormal calcifications observed. LOWER CHEST: No acute pathology. BONES AND SOFT TISSUES: Stable compression fracture of L4. Right femoral fixator partially imaged. RAD/Abdomen Single View (Portable) IMPRESSION: Non-obstructive bowel gas pattern. Colonic fecal retention compatible with clinical constipation. at 1616 Reported and signed by: Tom Pedro MD Electronically Signed: Tom Pedro MD at 16:15 EDT Tel , Service support ,
[2021-08-23 15:52] LABS: Anion Gap 9 (5-15); BUN 23 mg/dL (7-18); BUN/Creat Ratio 21.5 RATIO (10-20); Calcium,Total 9.6 mg/dL (8.5-10.1); Chloride 101 mmol/L (98-107); Creatinine, Serum 1.07 mg/dL (0.55-1.02); EST Glomerular Filtration Rate 53 mL/min (>60); Est Glom Filt Rate - Afr Amer 64 mL/min (>60); Estimated Creatinine Clearance 50.98 ml/min; Glucose 98 mg/dL (74-106); Potassium 3.5 mmol/L (3.5-5.1); Sodium Level 137 mmol/L (136-145)
[2021-08-23 17:25] VITALS: PULSE 85; RESP 16; O2SAT 98
== END 2021-08-23 18:01 | disposition home or self-care (01) ==
PROVIDERS: Emergency Provider Emergency Medicine
DX: M48.56XA Collapsed vertebra, not elsewhere classified, lumbar region, initial encounter for fracture (principal); K59.00 Constipation, unspecified; I12.9 Hypertensive chronic kidney disease with stage 1 through stage 4 chronic kidney disease, or unspecified chronic kidney disease; N18.30 Chronic kidney disease, stage 3 unspecified; D63.1 Anemia in chronic kidney disease; D50.9 Iron deficiency anemia, unspecified; J45.909 Unspecified asthma, uncomplicated; K21.9 Gastro-esophageal reflux disease without esophagitis; M35.3 Polymyalgia rheumatica; Z79.01 Long term (current) use of anticoagulants; Z79.52 Long term (current) use of systemic steroids; Z79.899 Other long term (current) drug therapy
CPT/HCPCS: 74018; 80048; 85025; 96374; 99285; A4216

== ENCOUNTER → 2021-09-14 05:00 | Outpatient (REF) | payer MEDICARE, BC, SELFPAY ==
[2021-09-14 08:46] LABS: Hematocrit 33.8 % (37-47); Hemoglobin 9.9 g/dL (12.0-15.0); Mean Corp Hgb Conc 29.3 g/dL (32-36); Mean Corpuscular Hgb 26.9 pg (27.0-32.0); Mean Corpuscular Volume 91.8 fL (81-99); Mean Platelet Vol. 10.8 fl (6.2-12.0); POSITIVE MORPHOLOGY YES; Platelet Count 408 K/mm3 (150-450); RBC Distribution Width CV 21.9 % (11.6-14.6); RBC Distribution Width SD 71.7 fl (35.1-43.9); Red Blood Count 3.68 M/mm3 (4.2-5.4); White Blood Count 9.5 K/mm3 (4.4-11.0)
[2021-09-14 08:50] LABS: Scan Indicated on CBC? Y/N YES- FLAGS NOTED
[2021-09-14 09:08] LABS: Anion Gap 6 (5-15); BUN 24 mg/dL (7-18); BUN/Creat Ratio 28.4 RATIO (10-20); Calcium,Total 9.7 mg/dL (8.5-10.1); Chloride 104 mmol/L (98-107); Creatinine, Serum 0.85 mg/dL (0.55-1.02); EST Glomerular Filtration Rate 69 mL/min (>60); Est Glom Filt Rate - Afr Amer 83 mL/min (>60); Glucose 133 mg/dL (74-106); Potassium 4.1 mmol/L (3.5-5.1); Sodium Level 138 mmol/L (136-145)
== END ==
LOC: OLS.SWAL 05:00
PROVIDERS: Visit Provider Internal Medicine
DX: D64.9 Anemia, unspecified (principal)
CPT/HCPCS: 36415; 80048; 85027

== ENCOUNTER 2021-10-01 10:08 | Emergency (ER) | payer MEDICARE, BC, SELFPAY ==
[2021-10-01] VITALS (7 sets, daily range): BP systolic 114–163; BP diastolic 57–92; PULSE 52–103; RESP 13–24; TEMP 36.8; O2SAT 93–98; BMI 33.7
--- NOTE | 2021-10-01 11:32 | CM.ED ---
NANETTE Note Referral Source: fittings finisher Reason: Wants to speak to RN NANETTE called SINTIA Muñoz, for patient. Toni is patient's son. Toni reports that this is the 3rd or 4th time that patient has been to the ED for back pain. Toni said you guys need to do something. He said that patient has back pain and has swelling in her hand. Patient was getting infusions because she was losing bood. Son said that patient needs a more extensive workup and said we need more than an x ray to find the underlying issue. Son said that patient was scheduled to have a bone marrow test but it was cancelled by her [place] oncologist and he did not feel she needed it. Patient' son said that it was scheduled by the [place] Oncologist. Toni said that at times patient is not all there, delusional and incontinent but then some days she is fine. Patient resides at [facility]. Patient's son said that patient came from a large family and one brother had leukemia. NANETTE updated RN and MD Esme CHUN
--- NOTE | 2021-10-01 11:48 | ED.VIS.BACK ---
HPI History of Present Illness Chief Complaint: Back Informant: patient Onset/Context/Timing Onset: Today Timing: Continuous Quality: Sharp Location: Lumbar and Buttock Worsened by: improves with - (Laying flat) Relieved by: Medications Associated Symptoms Associated Symptoms: Negative for Numbness, Tingling, Radiation to Right Leg, Radiation to Left Leg, Abdominal Pain, Dysuria, Unable to Ambulate, Unable to Transfer, Urinary Retention, Urinary Incontinence and Fecal Incontinence Narrative Narrative: Patient presents with back pain that became worse today. Patient had a recent vertebral kyphoplasty done by Dr. Raman. Patient states that today she started having spasms in her back and into her hips. Patient denies any radiation of the pain down her legs. Patient states it is worse whenever she lays flat. Patient states she has been taking some of her [place] which has been helping some but has not been completely taking the pain away. Patient describes her pain as sharp and spasm-like. Patient denies any urinary or stool incontinence. Patient denies any saddle anesthesia. Patient denies any paresthesias or weakness. Patient states she is able to ambulate although it is painful. [facility] Medical History (Updated 10/01/21 @ 16:[address] Husam Gonsalez, ) Acid reflux Anemia Asthma Benign paroxysmal positional vertigo Chronic kidney disease, stage 3 Essential hypertension GERD (gastroesophageal reflux disease) History of Palmer's esophagus History of malaria Iron deficiency anemia Leukocytosis Lymphedema Polymyalgia rheumatica Pulmonary embolism Stage 3 chronic kidney disease Thrombocythemia Home Medications apixaban [Eliquis] 2.5 mg PO BID 05/14/21 [History Last Taken Unknown] doxepin 25 mg PO QHS 05/14/21 [History Last Taken Unknown] furosemide [Lasix] 40 mg PO DAILY 05/14/21 [History Last Taken Unknown] hydrocodone-acetaminophen 2 tab PO Q8H PRN 05/14/21 [History Last Taken Unknown] albuterol sulfate 90 mcg/actuation aerosol inhaler 2 puff INHALATION Q6H PRN 08/03/21 [History Last Taken Unknown] ezetimibe 10 mg tablet 10 mg PO DAILY 08/03/21 [History Last Taken Unknown] losartan 50 mg PO DAILY 08/03/21 [History Last Taken Unknown] pantoprazole 40 mg tablet,delayed release 40 mg PO DAILY 08/03/21 [History Last Taken Unknown] prednisone 5 mg tablet 5 mg PO DAILY 08/03/21 [History Last Taken Unknown] acetaminophen 650 mg PO Q4H PRN 08/12/21 [History Last Taken Unknown] potassium chloride 40 meq PO DAILY 08/12/21 [History Last Taken Unknown] fentanyl 1 patch TRANSDERMAL Q72H 7 Days #2 ea 08/23/21 [Rx Last Taken Unknown] prednisone 20 mg PO BID #6 tab 08/23/21 [Rx Last Taken Unknown] cephalexin 500 mg PO 10/01/21 [History Last Taken Unknown] Allergy/AdvReac Type Severity Reaction Status Date / Time cefuroxime [From Ceftin] AdvReac Severe Itching Verified 10/01/21 11:05 Ledmkrl-DKC-SqH Reductase AdvReac Severe Other Verified 10/01/21 11:05 Inhibitor [Rvqfcgo-Uwk-Xbh Reductase Inhibitor] prochlorperazine AdvReac Intermediate Other Verified 10/01/21 11:05 [From Compazine] Family History Mother Cancer of eye Brother Heart disease Alzheimer disease Surgical History History of appendectomy Status post right foot surgery Social History Smoking Status: Never smoker second hand exposure: No alcohol intake: never substance use type: does not use deana/evangelical: Denominational seatbelt use: always do you feel safe at home: Yes ROS ROS ED Constitutional Constitutional ED: Denies chills or fever(s) Eyes Eyes: Denies blurry vision or change in vision ENT ENT ED: Denies rhinorrhea or sore throat Cardiovascular Cardiovascular: Denies chest pain or palpitations Respiratory/Chest Respiratory/Chest: Denies cough or dyspnea Gastrointestinal Gastrointestinal: Denies nausea or vomiting Genitourinary Genitourinary ED: Denies dysuria or hematuria Musculoskeletal Musculoskeletal: Reports back pain; Denies neck pain Integumentary Denies abscess or rash Neurologic Neurologic: Denies headache(s) or weakness Allergic/Immunologic Allergic/Immunologic ED: Denies mouth swelling or urticaria EXAM Physical Exam Const Vital Signs: 10/01/21 10:09 10/01/21 11:08 10/01/21 12:14 Temperature 98.2 F Temperature Source Oral Pulse Rate 103 H 97 94 Respiratory Rate 23 H 23 H 24 H Blood Pressure 163/87 H 114/57 L 136/68 H Blood Pressure Mean 112 76 90 Pulse Ox 96 98 95 Oxygen Delivery Method Room Air Room Air Room Air 10/01/21 14:10 10/01/21 16:09 Temperature Temperature Source Pulse Rate 95 52 L Respiratory Rate 13 Blood Pressure 133/64 H 137/92 H Blood Pressure Mean 87 107 Pulse Ox 93 96 Oxygen Delivery Method Room Air Room Air Positive well nourished, well developed and obese General Appearance ED: well developed Nutritional Appearance: obese HEENT Reports moist mucous membranes Neck supple and no JVD Resp normal respiratory effort and clear to auscultation bilaterally Cardio regular rate and regular rhythm GI soft to palpation and non-tender Back/Spine Back/Spine Narrative: There is tenderness over the lumbar spine and paraspinal muscles. There is no bony crepitance or step-off. Range of motion was limited in all motions of the lumbar spine secondary to pain. Lumbar Spine / Lower Back: ROM limited Extremity General Extremety ED: Negative for edema or tenderness General Extremity: Negative for edema Neuro oriented x3 and no sensory deficits noted Sensorium / Orientation: alert Motor Exam: strength 5/5 throughout Psych mental status grossly normal MDM MDM MDM Narrative Medical decision making narrative: Patient was given injection of morphine and Norflex here. Patient had minimal relief with this. Patient did not want to have x-rays because of her pain. Patient was given a repeat dose of morphine. On repeat evaluation, patient is now ready for her x-rays. Patient will go for her x-rays. CBC was within normal limits. X-rays of the lumbar spine were obtained. There are 3 views. On my interpretation, the kyphoplasty is stable. There are worsening compressions of L1 and L2. Patient was advised that this may be the cause of her pain. Patient does not have any signs or symptoms of cauda equina syndrome. Patient was instructed to follow-up with her primary care physician and pain management physician in 3 to 5 days. Patient understood and was agreeable with the plan. All questions were answered. Lab Data Attestation: I reviewed the patient's lab results. Labs: Laboratory Results - last 24 hr 10/01/21 12:39 WBC 9.4 RBC 3.53 L Hgb 9.8 L Hct 32.0 L MCV 90.7 MCH 27.8 MCHC 30.6 L RDW Std Deviation 67.8 H RDW Coeff of Khalida 20.8 H Plt Count 246 MPV 10.5 Immature Gran % (Auto) 0.400 Neut % (Auto) 80.4 H Lymph % (Auto) 12.1 L [place] % (Auto) 6.6 Eos % (Auto) 0.4 Baso % (Auto) 0.1 Absolute Neuts (auto) 7.6 Absolute Lymphs (auto) 1.14 Nucleated RBC % 0 Differential Comment SCANNED Anisocytosis 1+ Radiography Diagnostic Testing: Clinical Impression(s) from Imaging Studies Lumbar Spine X-Ray 10/01/21 14:22 IMPRESSION: Degenerative changes of the spine, as detailed above. Prior vertebroplasty of the L3 vertebrae. New loss of height of the L1, L2 vertebrae. Electronically Signed: Ryan Main MD at 15:00 EST , Service support , Discharge Plan Triage Chief Complaint: Back ED Provider: Husam Gonsalez Dx/Rx/DC Orders Clinical Impression: Back pain Instructions: ED Back Pain (Acute or Chronic) Prescriptions: No Action pantoprazole 40 mg tablet,delayed release (DR/EC) 40 mg PO DAILY RF: 0 prednisone 5 mg tablet 5 mg PO DAILY RF: 0 ezetimibe [Zetia] 10 mg tablet 10 mg PO DAILY RF: 0 albuterol sulfate [Ventolin HFA] 90 mcg/actuation HFA aerosol inhaler 2 puff inhalation Q6H PRN (Reason: SOB) RF: 0 doxepin 25 mg Capsule 25 mg PO QHS RF: 0 hydrocodone-acetaminophen 5-325 mg Tablet 2 tab PO Q8H PRN (Reason: Pain) RF: 0 furosemide [Lasix] 40 mg Tablet 40 mg PO DAILY RF: 0 Eliquis 2.5 mg Tablet 2.5 mg PO BID RF: 0 losartan 50 mg 50 mg PO DAILY RF: 0 acetaminophen 325 mg Tablet 650 mg PO Q4H PRN (Reason: PAIN/FEVER) RF: 0 potassium chloride 20 mEq Tablet Extended Release 40 meq PO DAILY RF: 0 fentanyl 25 mcg/hr patch 72 hour 1 patch transdermal Q72H 7 Days Qty: 2 RF: 0 prednisone 20 mg tablet 20 mg PO BID Qty: 6 RF: 0 cephalexin 500 mg capsule 500 mg PO RF: 0 Primary Care Provider: Leidy Santiago Referrals: Leidy Santiago MD [Primary Care Provider] - 3-5 Days Disposition Disposition: Home, Self Care
[2021-10-01] MEDS: Morphine 4 MG/ML Syringe IM ×2 (12:02→13:24)
[2021-10-01] MEDS: Orphenadrine 60 MG/2 ML Ampul IM (12:03)
--- NOTE | 2021-10-01 12:42 | ED.RN ---
pt refusing xray d/t not being able to lay there. asked to be put to sleep, explained we do not do that for xrays. pt states i just cant do it.
[2021-10-01 12:46] LABS: Absolute Lymphocyte Count 1.14 X10^3/uL (0.83-4.51); Absolute Neutrophil Count 7.6 X10^3/uL (2.0-7.7); Basophil# 0.01 X10^3/uL; Basophil% 0.1 % (0-1); Eosinophil# 0.04 X10^3/uL; Eosinophils% 0.4 % (0-5); Hemoglobin 9.8 g/dL (12.0-15.0); Lymphocyte # 1.14 X10^3/ul (0.83-4.51); Lymphocyte % 12.1 % (19-41); Mean Corp Hgb Conc 30.6 g/dL (32-36); Mean Corpuscular Hgb 27.8 pg (27.0-32.0); Mean Corpuscular Volume 90.7 fL (81-99); Mean Platelet Vol. 10.5 fl (6.2-12.0); Monocyte# 0.62 X10^3/uL; Monocyte% 6.6 % (0-10); NRBC Flagged by Analyzer 0 % (0-5); Neutrophil # 7.59 X10^3/uL (2.7-7.7); Neutrophil % 80.4 % (47-70); POSITIVE MORPHOLOGY YES; Platelet Count 246 K/mm3 (150-450); RBC Distribution Width CV 20.8 % (11.6-14.6); RBC Distribution Width SD 67.8 fl (35.1-43.9); Red Blood Count 3.53 M/mm3 (4.2-5.4); White Blood Count 9.4 K/mm3 (4.4-11.0)
[2021-10-01 12:48] LABS: Differential Indicated SCAN CRITERIA MET
[2021-10-01 12:58] LABS: Differential Comment SCANNED
[2021-10-01 12:59] LABS: Anisocytosis 1+
--- NOTE | 2021-10-01 14:22 | RAD_ITS ---
STUDY: X-RAY - LUMBAR SPINE REASON FOR EXAM: Female, 81 years old. Pain since recent kyphoplasty. TECHNIQUE: 3 view(s) of the lumbar spine were obtained. COMPARISON: Comparison is made with prior examination dated 08/12/2021. FINDINGS: There is straightening of the normal lumbar lordosis. There is no substantial scoliosis. There is a normal alignment of the vertebrae. There is diffuse demineralization with multi-level endplate spondylosis. Prior vertebroplasty of the L3 vertebrae. Loss of height of the L1, L2 and L4 vertebrae. Since prior study, there has been compression of the L1 and L2 vertebrae. Normal disc space heights. There is atherosclerotic calcification of the abdominal aorta without a demonstrated aneurysm. RAD/Lumbar Spine 2 or 3 Views IMPRESSION: Degenerative changes of the spine, as detailed above. Prior vertebroplasty of the L3 vertebrae. New loss of height of the L1, L2 vertebrae. Electronically Signed: Ryan Main MD at 15:00 EST , Service support ,
--- NOTE | 2021-10-01 14:47 | ED.RN ---
PT CALLS OUT D/T HAVING TO PEE. PT DOES THINK SHE CAN WALK TO THE RESTROOM WITHOUT HER WALKER EVEN IF STAFF ASSISTS. THIS RN STATES THAT I WILL US A BED LINCOLN, PT REFUSES TO LAY ON BACK SO BED LINCOLN CAN BE USED, I WILL JUST LAY HER AND WET MYSELF. THIS RN WILL ATTEMPT A PURWICK.
--- NOTE | 2021-10-01 16:43 | NURSING ---
CALLED [facility], ETA IS 90 MIN
--- NOTE | 2021-10-01 17:11 | CM.ED ---
SW Note NANETTE called patient's son, Toni Gonzalez SINTIA and advised him that patient CBC was normal and that patient's L1 and L2 show compression and that patient needs to follow up with PCP and Pain Management MD. Plan: SINTIA advised patient will be discharged Esme CHUN
== END 2021-10-01 19:21 | disposition home or self-care (01) ==
PROVIDERS: Emergency Provider Emergency Medicine; PCP Internal Medicine
DX: M54.9 Dorsalgia, unspecified (principal); E66.9 Obesity, unspecified; K21.9 Gastro-esophageal reflux disease without esophagitis; I12.9 Hypertensive chronic kidney disease with stage 1 through stage 4 chronic kidney disease, or unspecified chronic kidney disease; N18.30 Chronic kidney disease, stage 3 unspecified; Z79.01 Long term (current) use of anticoagulants; Z87.19 Personal history of other diseases of the digestive system; Z79.899 Other long term (current) drug therapy
CPT/HCPCS: 72100; 85025; 96372; 99285; A4216

== ENCOUNTER → 2021-10-12 04:00 | Outpatient (REF) | payer MEDICARE, BC, SELFPAY ==
[2021-10-12 08:56] LABS: Hematocrit 33.3 % (37-47); Hemoglobin 9.9 g/dL (12.0-15.0); Mean Corp Hgb Conc 29.7 g/dL (32-36); Mean Corpuscular Hgb 28.5 pg (27.0-32.0); Mean Platelet Vol. 10.7 fl (6.2-12.0); POSITIVE MORPHOLOGY YES; Platelet Count 393 K/mm3 (150-450); RBC Distribution Width CV 20.7 % (11.6-14.6); Red Blood Count 3.47 M/mm3 (4.2-5.4); White Blood Count 10.8 K/mm3 (4.4-11.0)
[2021-10-12 09:00] LABS: Scan Indicated on CBC? Y/N YES- FLAGS NOTED
[2021-10-12 09:03] LABS: Anion Gap 8 (5-15); BUN 19 mg/dL (7-18); BUN/Creat Ratio 22.5 RATIO (10-20); Calcium,Total 9.2 mg/dL (8.5-10.1); Chloride 108 mmol/L (98-107); Creatinine, Serum 0.84 mg/dL (0.55-1.02); EST Glomerular Filtration Rate 69 mL/min (>60); Est Glom Filt Rate - Afr Amer 84 mL/min (>60); Glucose 136 mg/dL (74-106); Potassium 4.7 mmol/L (3.5-5.1); Sodium Level 141 mmol/L (136-145)
== END ==
LOC: OLS.SWAL 04:00
PROVIDERS: PCP Internal Medicine; Visit Provider Internal Medicine
DX: D64.9 Anemia, unspecified (principal); N18.30 Chronic kidney disease, stage 3 unspecified
CPT/HCPCS: 36415; 80048; 85027

== ENCOUNTER 2021-10-15 14:48 | Outpatient (RCR) | payer MEDICARE, BC, SELFPAY ==
[2021-10-15 15:21] VITALS: BP 172/93; PULSE 95; RESP 17; TEMP 35.9
--- NOTE | 2021-10-15 21:46 | PCM.WC.HP ---
History of Present Illness Date of Service: 10/15/21 Chief Complaint: Pressure injury to bilateral buttocks History of Wound: This is a 81-year-old female who resides at [facility] who presents to the wound healing center today with complaint of ulcers to her bilateral buttocks. She has a past medical history as listed above. The patient states that over the last 3 months she has had issues with ulcerations on her bilateral buttocks. She states that she has been utilizing triple antibiotic cream and has been on a couple antibiotics as well. She states that due to her chronic pain she is unable to offload pressure onto her buttocks. She is following up with pain management and is scheduled to have a injection done later this month. She denies any systemic or localized signs of infection at this time. She denies any other acute concerns. Past medical, family, and social history reviewed and not pertinent to the current visit and all other systems reviewed and negative with exception of those listed above. PENDING SALE TO [facility] Medical History (Updated 10/16/21 @ 17:08 by Erik Rodríguez NP, [employer]) Acid reflux Anemia Asthma Benign paroxysmal positional vertigo Chronic kidney disease, stage 3 Essential hypertension GERD (gastroesophageal reflux disease) History of Palmer's esophagus History of malaria Iron deficiency anemia due to chronic blood loss Leukocytosis Lower back pain Lymphedema Polymyalgia rheumatica Pressure injury of left buttock, stage 2 Pressure injury of right buttock, stage 2 Pulmonary embolism Stage 3 chronic kidney disease Thrombocythemia Home Medications apixaban [Eliquis] 2.5 mg PO BID 05/14/21 [History Last Taken Unknown] doxepin 25 mg PO QHS 05/14/21 [History Last Taken Unknown] furosemide [Lasix] 40 mg PO DAILY 05/14/21 [History Last Taken Unknown] hydrocodone-acetaminophen 2 tab PO Q8H PRN 05/14/21 [History Last Taken Unknown] albuterol sulfate 90 mcg/actuation aerosol inhaler 2 puff INHALATION Q6H PRN 08/03/21 [History Last Taken Unknown] ezetimibe 10 mg tablet 10 mg PO DAILY 08/03/21 [History Last Taken Unknown] losartan 50 mg PO DAILY 08/03/21 [History Last Taken Unknown] pantoprazole 40 mg tablet,delayed release 40 mg PO DAILY 08/03/21 [History Last Taken Unknown] prednisone 5 mg tablet 5 mg PO DAILY 08/03/21 [History Last Taken Unknown] acetaminophen 650 mg PO Q4H PRN 08/12/21 [History Last Taken Unknown] potassium chloride 40 meq PO DAILY 08/12/21 [History Last Taken Unknown] cephalexin 500 mg PO 10/01/21 [History Last Taken Unknown] Allergy/AdvReac Type Severity Reaction Status Date / Time cefuroxime [From Ceftin] AdvReac Severe Itching Verified 10/05/21 11:35 Sxikeoh-QVH-EeW Reductase AdvReac Severe Other Verified 10/05/21 11:35 Inhibitor [Ppbjgtz-Kye-Kgx Reductase Inhibitor] prochlorperazine AdvReac Intermediate Other Verified 10/05/21 11:35 [From Compazine] Family History Mother Cancer of eye Brother Heart disease Alzheimer disease Surgical History History of appendectomy Status post right foot surgery Social History Smoking Status: Never smoker second hand exposure: No alcohol intake: never substance use type: does not use deana/catholic: Jainism seatbelt use: always do you feel safe at home: Yes ROS ROS Narrative Negative x10 systems with exception of those listed above Physical Exam Const alert, oriented x3, no apparent distress, healthy appearing and well nourished Constitutional Narrative: Patient utilizing a walker General Appearance: cooperative and frail Exam Limitations: no limitations HEENT normocephalic Head and Scalp: normal to inspection Mouth: oral and palatal mucosa normal Eyes General Eye: normal appearance of both eyes Resp normal respiratory effort, normal air movement and no use of accessory muscles Effort and Inspection: able to speak in complete sentences Auscultation: clear to auscultation bilaterally Cardio regular rate, regular rhythm, S1 normal heart sound, S2 normal heart sound, no murmurs and peripheral pulses 2+ throughout Palpation: normal PMI Rate: regular rate Heart Sounds: S1 normal and S2 normal GI normal to inspection, nondistended, normoactive bowel sounds, soft to palpation, non-tender and non-distended Palpation: soft Extremity normal to inspection and full ROM General Extremity: normal exam except as noted Skin Skin Narrative: stage 2 pressure injuries to bilateral lower buttocks with adherent slough, no signs of obvious infection at this time. Neuro oriented x3 and moves all extremities Sensorium / Orientation: awake, alert, oriented to person, oriented to place and oriented to time Psych mental status grossly normal, thought process normal and denies hallucinations Appearance: grossly normal Attitude: calm Activity / Motor Behavior: appropriate eye contact Speech: normal speech Thought Process: normal thought process Thought Content: normal thought content Attention / Concentration: attention grossly intact Insight: insight good Judgement: judgement good Debridement Note Debridement Note Wound debrided: Stage II pressure injuries to bilateral buttocks Type of Debridement: Excisional debridement Anesthesia Used: 5% Lidocaine Gel Depth: Down to and including healthy tissue and in the subcutaneous layer Percentage of wound debrided: 100 Instrument Used: 5mm curette Tissue Removed: Slough and devitalized tissue Severity: Fat Layer Exposed Amount of bleeding with debridement: Mild Bleeding Controlled with: Pressure Patient tolerated procedure: Patient tolerated procedure well Post-Debridement Measurements and Additional Note: Post-Debridement Measurements/Treatment NEDA - Nurse 1 - General Ulcer Assessment Start: 10/15/21 15:21 Freq: Status: Active Protocol: MERCEDES Activity Type Activity Date Activity User E-Sign Co-Sign Detail Recorded Client Recorded Date Recorded By Document 10/15/21 15:21 ML [id number] 10/15/21 15:33 ML 10/15/21 15:21 - Today's Visit Information Type of service Initial Visit Arrival Mode Ambulatory, Walker Patient Identification Verified (Name & Yes ) Patient Requires Transmission-Based No Precautions Safety Precautions NA Vital Signs Temperature (97.8 F-99.1 F) 96.7 F L Temperature Source Temporal Pulse Rate (60-100) 95 Pulse Location Monitor Respiratory Rate (12-18) 17 Respiratory rate source Observation Blood Pressure (90/60-120/80) 172/93 H Blood Pressure Mean 119 Source Monitor Position Sitting Blood Pressure Location Left Arm History Since Last Visit- (Skip if this is Patient's initial visit) Have you changed medications since your No last visit? Any new allergies or adverse reactions No Had a fall/change in ADL's that may No increase risk of falls Signs or symptoms of abuse and/or No neglect since last visit Have you been in the hospital since your No last visit? Has dressing in place as prescribed No Has compression in place as prescribed N/A Has offloadiing in place as prescribed N/A Experienced any changes in pain level or No management Left Footwear Regular Shoe Right Footwear Regular Shoe Pain Scale: 0-10 Numeric Is Patient Pain Free? No WC - Nurse 1 - General Ulcer Measurement Start: 10/15/21 15:21 Freq: Status: Active Protocol: Activity Type Activity Date Activity User E-Sign Co-Sign Detail Recorded Client Recorded Date Recorded By Document 10/15/21 15:21 ML [id number] 10/15/21 15:33 ML 10/15/21 15:21 Wound Center Nurse 1 #2 r gluteal fold -Current Size (cm) - Length 1.4 -Current Size (cm) - Width 0.5 -Current Size (cm) - Depth 0.1 -Total Square Cm 0.70 -Exudate Amt Medium -Exudate Type Serosanguineous -Wound Margin Distinct, Outline Attached -Granulation Amt Medium (34-66%) -Necrosis Amt Medium (34-66%) -Necrotic Tissue Type Adherent Slough -Texture (Yany-wound Skin Appearance) Assessed -Moisture (Yany-wound Skin Appearance) Assessed -Color (Yany-wound Skin Appearance) Assessed -Ulcer Cleansing Rinsed/ Irrigated with Saline -Foul Odor after Cleansing No -Anesthetic Used 4% Lidocaine Solution #1 l gluteal fold -Current Size (cm) - Length 1 -Current Size (cm) - Width 0.4 -Current Size (cm) - Depth 0.1 -Total Square Cm 0.4 -Exudate Amt Medium -Exudate Type Serosanguineous -Granulation Amt Medium (34-66%) -Necrosis Amt Medium (34-66%) -Necrotic Tissue Type Adherent Slough -Texture (Yany-wound Skin Appearance) Assessed -Moisture (Yany-wound Skin Appearance) Assessed -Color (Yany-wound Skin Appearance) Assessed -Ulcer Cleansing Rinsed/ Irrigated with Saline -Foul Odor after Cleansing No -Anesthetic Used 4% Lidocaine Solution WC - Nurse 2 - General Ulcer CM Notes Start: 10/15/21 15:21 Freq: Status: Active Protocol: Activity Type Activity Date Activity User E-Sign Co-Sign Detail Recorded Client Recorded Date Recorded By Document 10/15/21 15:49 MW [id number] 10/15/21 15:55 MW 10/15/21 15:49 Wound Center Nurse 2 #2 r gluteal fold -Time 15:50 -Correct Patient Yes -Correct Side, Site, Position Yes -Correct Procedure Yes -Procedure Performed Yes -Type of Procedure Debridement -Clinical Debridement Subcutaneous -Tissue Removed Subcutaneous -Post Debridement (cm) - Length 1.2 -Post Debridement (cm) - Width 1.0 -Post Debridement (cm) - Depth 0.1 -Total Square (Post) (cm) 1.20 -Area of Debridement (cm) - Length 1.2 -Area of Debridement (cm) - Width 1.0 -Total Square (Area) (cm) 1.20 -Tunneling No -Undermining/Tunneling No -Circular Undermining No -Wound/Ulcer Outcome Not Healed -Ulcer Cleansing Rinsed/ Irrigated with Saline -Foul Odor after Cleansing No -Bioengineered Tissue No -Bleeding Controlled with Pressure -Offloading No -Treatment Response Procedure Tolerated Well -Debridement - Subq, 1st 20sq cm Yes #1 l gluteal fold -Time 15:51 -Correct Patient Yes -Correct Side, Site, Position Yes -Correct Procedure Yes -Procedure Performed Yes -Type of Procedure Debridement -Clinical Debridement Subcutaneous -Tissue Removed Subcutaneous -Post Debridement (cm) - Length 1.2 -Post Debridement (cm) - Width 1.0 -Post Debridement (cm) - Depth 0.1 -Total Square (Post) (cm) 1.20 -Area of Debridement (cm) - Length 1.2 -Area of Debridement (cm) - Width 1.0 -Total Square (Area) (cm) 1.20 -Tunneling No -Undermining/Tunneling No -Circular Undermining No -Wound/Ulcer Outcome Not Healed -Ulcer Cleansing Rinsed/ Irrigated with Saline -Foul Odor after Cleansing No -Bioengineered Tissue No -Bleeding Controlled with Pressure -Offloading No -Treatment Response Procedure Tolerated Well -Debridement - Subq, 1st 20sq cm No WC - Nurse 3 - General Ulcer D/C NN Start: 10/15/21 15:21 Freq: Status: Active Protocol: Activity Type Activity Date Activity User E-Sign Co-Sign Detail Recorded Client Recorded Date Recorded By Document 10/15/21 16:04 ML [id number] 10/15/21 16:05 ML 10/15/21 16:04 Wound Care Nurse 3 #2 r gluteal fold -Ulcer Cleansing Rinsed/ Irrigated with Saline -Primary Dressing Applied Promogran Celina Matter -Other Dressing foam dressing -Promogran Celina Matter 1 #1 l gluteal fold -Ulcer Cleansing Rinsed/ Irrigated with Saline -Primary Dressing Applied Promogran Celina Matter -Other Dressing foam dressing -Promogran Celina Matter 0 Charges/Coding Visit Charges Office Visits / Consults: [id number] OV L4 New Procedures Integumentary [id number]: [id number] Janay subq tissue 20 sq cm/< Assessment/Plan Assessment/Plan (1) Pressure injury of right buttock, stage 2: CODE(S): L89.312 - Pressure ulcer of right buttock, stage 2 (2) Pressure injury of left buttock, stage 2: CODE(S): L89.322 - Pressure ulcer of left buttock, stage 2 (3) Chronic coccygeal pain: CODE(S): M53.3 - Sacrococcygeal disorders, not elsewhere classified; G89.29 - Other chronic pain (4) Polymyalgia rheumatica: CODE(S): M35.3 - Polymyalgia rheumatica (5) Benign paroxysmal positional vertigo: CODE(S): H81.10 - Benign paroxysmal vertigo, unspecified ear (6) Essential hypertension: CODE(S): I10 - Essential (primary) hypertension (7) Asthma: CODE(S): J45.909 - Unspecified asthma, uncomplicated (8) Anemia: CODE(S): D64.9 - Anemia, unspecified QUALIFIERS: Anemia type: unspecified type Qualified Code(s): D64.9 - Anemia, unspecified PLAN: Debridement performed today in clinic as annotated above. Moistened Celina cover with [place] SAP applied. At home wound-care instructions: Daily application of moistened Celina cover with [place] SAP, Change dressing once daily or more frequently as needed due to contamination. Wash wounds daily with antibacterial soap and water, rinse and dry thoroughly before each dressing change. Compression: Not indicated Off-loading: The patient was instructed to avoid pressure and friction on the affected areas. Reposition every 2 hours at minimum. Avoid prolonged standing and/or dangling of legs. When seated, feet should be elevated at chest level. Frequent ambulation is encouraged. Diet: Patient encouraged to increase protein intake while taking caution to avoid high carbohydrate and/or sugar intake. Non-smoker Labs/cultures/imaging: Cultures ordered and collected today. Routine baseline lab work held. Follow-up: Return to clinic in 1 week for re-evaluation. Return sooner or report to the emergency room should symptoms worsen, or new symptoms arise. This note was generated with Ztail dictation software. It may contain incorrect words, spelling, and punctuation that were not noted in checking the note before signing. I have spent 45 minutes today reviewing labs, records, and history. Time includes coordinating care, interpretation of tests, and counseling the patient/family. This also includes time I spent with the patient for exam, treatment plan, and education as well as documenting clinical information in the electronic health record.
--- NOTE | 2021-10-16 16:46 | HP.PCM_ITS ---
History of Present Illness Date of Service: 10/15/21 Chief Complaint: Pressure injury to bilateral buttocks History of Wound: This is a 81-year-old female who resides at [facility] who presents to the wound healing center today with complaint of ulcers to her bilateral buttocks. She has a past medical history as listed above. The patient states that over the last 3 months she has had issues with ulcerations on her bilateral buttocks. She states that she has been utilizing triple antibiotic cream and has been on a couple antibiotics as well. She states that due to her chronic pain she is unable to offload pressure onto her buttocks. She is following up with pain management and is scheduled to have a injection done later this month. She denies any systemic or localized signs of infection at this time. She denies any other acute concerns. Past medical, family, and social history reviewed and not pertinent to the current visit and all other systems reviewed and negative with exception of those listed above. [facility] Medical History (Updated 10/16/21 @ 17:08 by Erik Rodríguez NP, MANAGER MED SURG-C) Acid reflux Anemia Asthma Benign paroxysmal positional vertigo Chronic kidney disease, stage 3 Essential hypertension GERD (gastroesophageal reflux disease) History of Palmer's esophagus History of malaria Iron deficiency anemia due to chronic blood loss Leukocytosis Lower back pain Lymphedema Polymyalgia rheumatica Pressure injury of left buttock, stage 2 Pressure injury of right buttock, stage 2 Pulmonary embolism Stage 3 chronic kidney disease Thrombocythemia Home Medications apixaban [Eliquis] 2.5 mg PO BID 05/14/21 [History Last Taken Unknown] doxepin 25 mg PO QHS 05/14/21 [History Last Taken Unknown] furosemide [Lasix] 40 mg PO DAILY 05/14/21 [History Last Taken Unknown] hydrocodone-acetaminophen 2 tab PO Q8H PRN 05/14/21 [History Last Taken Unknown] albuterol sulfate 90 mcg/actuation aerosol inhaler 2 puff INHALATION Q6H PRN 08/03/21 [History Last Taken Unknown] ezetimibe 10 mg tablet 10 mg PO DAILY 08/03/21 [History Last Taken Unknown] losartan 50 mg PO DAILY 08/03/21 [History Last Taken Unknown] pantoprazole 40 mg tablet,delayed release 40 mg PO DAILY 08/03/21 [History Last Taken Unknown] prednisone 5 mg tablet 5 mg PO DAILY 08/03/21 [History Last Taken Unknown] acetaminophen 650 mg PO Q4H PRN 08/12/21 [History Last Taken Unknown] potassium chloride 40 meq PO DAILY 08/12/21 [History Last Taken Unknown] cephalexin 500 mg PO 10/01/21 [History Last Taken Unknown] Allergy/AdvReac Type Severity Reaction Status Date / Time cefuroxime [From Ceftin] AdvReac Severe Itching Verified 10/05/21 11:35 [id number] Reductase AdvReac Severe Other Verified 10/05/21 11:35 Inhibitor [Nssimms-Pgk-Qeu Reductase Inhibitor] prochlorperazine AdvReac Intermediate Other Verified 10/05/21 11:35 [From Compazine] Family History Mother Cancer of eye Brother Heart disease Alzheimer disease Surgical History History of appendectomy Status post right foot surgery Social History Smoking Status: Never smoker second hand exposure: No alcohol intake: never substance use type: does not use deana/buddhism: Jewish seatbelt use: always do you feel safe at home: Yes ROS ROS Narrative Negative x10 systems with exception of those listed above Physical Exam Const alert, oriented x3, no apparent distress, healthy appearing and well nourished Constitutional Narrative: Patient utilizing a walker General Appearance: cooperative and frail Exam Limitations: no limitations HEENT normocephalic Head and Scalp: normal to inspection Mouth: oral and palatal mucosa normal Eyes General Eye: normal appearance of both eyes Resp normal respiratory effort, normal air movement and no use of accessory muscles Effort and Inspection: able to speak in complete sentences Auscultation: clear to auscultation bilaterally Cardio regular rate, regular rhythm, S1 normal heart sound, S2 normal heart sound, no murmurs and peripheral pulses 2+ throughout Palpation: normal PMI Rate: regular rate Heart Sounds: S1 normal and S2 normal GI normal to inspection, nondistended, normoactive bowel sounds, soft to palpation, non-tender and non-distended Palpation: soft Extremity normal to inspection and full ROM General Extremity: normal exam except as noted Skin Skin Narrative: stage 2 pressure injuries to bilateral lower buttocks with adherent slough, no signs of obvious infection at this time. Neuro oriented x3 and moves all extremities Sensorium / Orientation: awake, alert, oriented to person, oriented to place and oriented to time Psych mental status grossly normal, thought process normal and denies hallucinations Appearance: grossly normal Attitude: calm Activity / Motor Behavior: appropriate eye contact Speech: normal speech Thought Process: normal thought process Thought Content: normal thought content Attention / Concentration: attention grossly intact Insight: insight good Judgement: judgement good Debridement Note Debridement Note Wound debrided: Stage II pressure injuries to bilateral buttocks Type of Debridement: Excisional debridement Anesthesia Used: 5% Lidocaine Gel Depth: Down to and including healthy tissue and in the subcutaneous layer Percentage of wound debrided: 100 Instrument Used: 5mm curette Tissue Removed: Slough and devitalized tissue Severity: Fat Layer Exposed Amount of bleeding with debridement: Mild Bleeding Controlled with: Pressure Patient tolerated procedure: Patient tolerated procedure well Post-Debridement Measurements and Additional Note: Post-Debridement Measurements/Treatment NEDA - Nurse 1 - General Ulcer Assessment Start: 10/15/21 15:21 Freq: Status: Active Protocol: MERCEDES Activity Type Activity Date Activity User E-Sign Co-Sign Detail Recorded Client Recorded Date Recorded By Document 10/15/21 15:21 ML [id number] 10/15/21 15:33 ML 10/15/21 15:21 - Today's Visit Information Type of service Initial Visit Arrival Mode Ambulatory, Walker Patient Identification Verified (Name & Yes ) Patient Requires Transmission-Based No Precautions Safety Precautions NA Vital Signs Temperature (97.8 F-99.1 F) 96.7 F L Temperature Source Temporal Pulse Rate (60-100) 95 Pulse Location Monitor Respiratory Rate (12-18) 17 Respiratory rate source Observation Blood Pressure (90/60-120/80) 172/93 H Blood Pressure Mean 119 Source Monitor Position Sitting Blood Pressure Location Left Arm History Since Last Visit- (Skip if this is Patient's initial visit) Have you changed medications since your No last visit? Any new allergies or adverse reactions No Had a fall/change in ADL's that may No increase risk of falls Signs or symptoms of abuse and/or No neglect since last visit Have you been in the hospital since your No last visit? Has dressing in place as prescribed No Has compression in place as prescribed N/A Has offloadiing in place as prescribed N/A Experienced any changes in pain level or No management Left Footwear Regular Shoe Right Footwear Regular Shoe Pain Scale: 0-10 Numeric Is Patient Pain Free? No WC - Nurse 1 - General Ulcer Measurement Start: 10/15/21 15:21 Freq: Status: Active Protocol: Activity Type Activity Date Activity User E-Sign Co-Sign Detail Recorded Client Recorded Date Recorded By Document 10/15/21 15:21 ML [id number] 10/15/21 15:33 ML 10/15/21 15:21 Wound Center Nurse 1 #2 r gluteal fold -Current Size (cm) - Length 1.4 -Current Size (cm) - Width 0.5 -Current Size (cm) - Depth 0.1 -Total Square Cm 0.70 -Exudate Amt Medium -Exudate Type Serosanguineous -Wound Margin Distinct, Outline Attached -Granulation Amt Medium (34-66%) -Necrosis Amt Medium (34-66%) -Necrotic Tissue Type Adherent Slough -Texture (Yany-wound Skin Appearance) Assessed -Moisture (Yany-wound Skin Appearance) Assessed -Color (Yany-wound Skin Appearance) Assessed -Ulcer Cleansing Rinsed/ Irrigated with Saline -Foul Odor after Cleansing No -Anesthetic Used 4% Lidocaine Solution #1 l gluteal fold -Current Size (cm) - Length 1 -Current Size (cm) - Width 0.4 -Current Size (cm) - Depth 0.1 -Total Square Cm 0.4 -Exudate Amt Medium -Exudate Type Serosanguineous -Granulation Amt Medium (34-66%) -Necrosis Amt Medium (34-66%) -Necrotic Tissue Type Adherent Slough -Texture (Yany-wound Skin Appearance) Assessed -Moisture (Yany-wound Skin Appearance) Assessed -Color (Yany-wound Skin Appearance) Assessed -Ulcer Cleansing Rinsed/ Irrigated with Saline -Foul Odor after Cleansing No -Anesthetic Used 4% Lidocaine Solution WC - Nurse 2 - General Ulcer CM Notes Start: 10/15/21 15:21 Freq: Status: Active Protocol: Activity Type Activity Date Activity User E-Sign Co-Sign Detail Recorded Client Recorded Date Recorded By Document 10/15/21 15:49 MW [id number] 10/15/21 15:55 MW 10/15/21 15:49 Wound Center Nurse 2 #2 r gluteal fold -Time 15:50 -Correct Patient Yes -Correct Side, Site, Position Yes -Correct Procedure Yes -Procedure Performed Yes -Type of Procedure Debridement -Clinical Debridement Subcutaneous -Tissue Removed Subcutaneous -Post Debridement (cm) - Length 1.2 -Post Debridement (cm) - Width 1.0 -Post Debridement (cm) - Depth 0.1 -Total Square (Post) (cm) 1.20 -Area of Debridement (cm) - Length 1.2 -Area of Debridement (cm) - Width 1.0 -Total Square (Area) (cm) 1.20 -Tunneling No -Undermining/Tunneling No -Circular Undermining No -Wound/Ulcer Outcome Not Healed -Ulcer Cleansing Rinsed/ Irrigated with Saline -Foul Odor after Cleansing No -Bioengineered Tissue No -Bleeding Controlled with Pressure -Offloading No -Treatment Response Procedure Tolerated Well -Debridement - Subq, 1st 20sq cm Yes #1 l gluteal fold -Time 15:51 -Correct Patient Yes -Correct Side, Site, Position Yes -Correct Procedure Yes -Procedure Performed Yes -Type of Procedure Debridement -Clinical Debridement Subcutaneous -Tissue Removed Subcutaneous -Post Debridement (cm) - Length 1.2 -Post Debridement (cm) - Width 1.0 -Post Debridement (cm) - Depth 0.1 -Total Square (Post) (cm) 1.20 -Area of Debridement (cm) - Length 1.2 -Area of Debridement (cm) - Width 1.0 -Total Square (Area) (cm) 1.20 -Tunneling No -Undermining/Tunneling No -Circular Undermining No -Wound/Ulcer Outcome Not Healed -Ulcer Cleansing Rinsed/ Irrigated with Saline -Foul Odor after Cleansing No -Bioengineered Tissue No -Bleeding Controlled with Pressure -Offloading No -Treatment Response Procedure Tolerated Well -Debridement - Subq, 1st 20sq cm No WC - Nurse 3 - General Ulcer D/C NN Start: 10/15/21 15:21 Freq: Status: Active Protocol: Activity Type Activity Date Activity User E-Sign Co-Sign Detail Recorded Client Recorded Date Recorded By Document 10/15/21 16:04 ML [id number] 10/15/21 16:05 ML 10/15/21 16:04 Wound Care Nurse 3 #2 r gluteal fold -Ulcer Cleansing Rinsed/ Irrigated with Saline -Primary Dressing Applied Promogran Celina Matter -Other Dressing foam dressing -Promogran Celina Matter 1 #1 l gluteal fold -Ulcer Cleansing Rinsed/ Irrigated with Saline -Primary Dressing Applied Promogran Celina Matter -Other Dressing foam dressing -Promogran Celina Matter 0 Charges/Coding Visit Charges Office Visits / Consults: 02809 OV L4 New Procedures Integumentary 111xxx-113xx: [id number] Janay subq tissue 20 sq cm/< Assessment/Plan Assessment/Plan (1) Pressure injury of right buttock, stage 2: CODE(S): L89.312 - Pressure ulcer of right buttock, stage 2 (2) Pressure injury of left buttock, stage 2: CODE(S): L89.322 - Pressure ulcer of left buttock, stage 2 (3) Chronic coccygeal pain: CODE(S): M53.3 - Sacrococcygeal disorders, not elsewhere classified; G89.29 - Other chronic pain (4) Polymyalgia rheumatica: CODE(S): M35.3 - Polymyalgia rheumatica (5) Benign paroxysmal positional vertigo: CODE(S): H81.10 - Benign paroxysmal vertigo, unspecified ear (6) Essential hypertension: CODE(S): I10 - Essential (primary) hypertension (7) Asthma: CODE(S): J45.909 - Unspecified asthma, uncomplicated (8) Anemia: CODE(S): D64.9 - Anemia, unspecified QUALIFIERS: Anemia type: unspecified type Qualified Code(s): D64.9 - Anemia, unspecified PLAN: Debridement performed today in clinic as annotated above. Moistened Celina cover with [place] SAP applied. At home wound-care instructions: Daily application of moistened Celina cover with [place] SAP, Change dressing once daily or more frequently as needed due to contamination. Wash wounds daily with antibacterial soap and water, rinse and dry thoroughly before each dressing change. Compression: Not indicated Off-loading: The patient was instructed to avoid pressure and friction on the affected areas. Reposition every 2 hours at minimum. Avoid prolonged standing and/or dangling of legs. When seated, feet should be elevated at chest level. Frequent ambulation is encouraged. Diet: Patient encouraged to increase protein intake while taking caution to avoid high carbohydrate and/or sugar intake. Non-smoker Labs/cultures/imaging: Cultures ordered and collected today. Routine baseline lab work held. Follow-up: Return to clinic in 1 week for re-evaluation. Return sooner or report to the emergency room should symptoms worsen, or new symptoms arise. This note was generated with [employer] dictation software. It may contain incorrect words, spelling, and punctuation that were not noted in checking the note before signing. I have spent 45 minutes today reviewing labs, records, and history. Time includes coordinating care, interpretation of tests, and counseling the patient/family. This also includes time I spent with the patient for exam, treatment plan, and education as well as documenting clinical information in the electronic health record.
--- NOTE | 2021-10-20 10:41 | WC ---
Wound culture results from 10/16/21 reviewed per Erik Rodríguez NP. Doxycycline sent to [facility] per Erik THOMAS. Message left for Lawrence Acharya nurse to notify of results and ATB called in to pharmacy.
== END 2021-10-30 23:59 ==
LOC: WC 14:48
PROVIDERS: PCP Internal Medicine; Visit Provider Nurse Practitioner Family
DX: L89.322 Pressure ulcer of left buttock, stage 2 (principal); L89.312 Pressure ulcer of right buttock, stage 2; N18.30 Chronic kidney disease, stage 3 unspecified; I12.9 Hypertensive chronic kidney disease with stage 1 through stage 4 chronic kidney disease, or unspecified chronic kidney disease; K21.9 Gastro-esophageal reflux disease without esophagitis; J45.909 Unspecified asthma, uncomplicated; Z79.899 Other long term (current) drug therapy; Z79.01 Long term (current) use of anticoagulants; M35.3 Polymyalgia rheumatica; Z79.52 Long term (current) use of systemic steroids; H81.10 Benign paroxysmal vertigo, unspecified ear
CPT/HCPCS: 11042; 87070; 87075; 87077; 87186; 87205; 99213; G0463

== ENCOUNTER → 2021-10-27 12:32 | Outpatient (CLI) | payer MEDICARE, BC, SELFPAY ==
--- NOTE | 2021-10-27 12:35 | RAD_ITS ---
STUDY: X-RAY - PELVIS AND BILATERAL HIPS REASON FOR EXAM: Female, 81 years old. PELVIC PAIN TECHNIQUE: AP view of the pelvis.? 2 views of the right hip, and 2 views of the left hip were obtained. COMPARISON: None. FINDINGS: There is a non-specific bowel gas pattern. Normal visualized soft tissue structures. Normal bilateral iliac wings, sacroiliac joints and visualized sacrum. Normal bilateral superior and inferior pubic rami. Normal pubic symphysis. Normal bilateral ischial tuberosities. Healed fracture of the proximal shaft of the right femur after open reduction internal fixation with a femoral neck compression screw and a intramedullary harvinder. Normal right acetabulum. Normal right hip joint. Normal visualized left femoral head. Normal left acetabulum. Normal left hip joint. RAD/Hips B/L min 2 views w/ Pelvis IMPRESSION: Healed fracture of the proximal shaft of the right femur after open reduction internal fixation. Electronically Signed: Nithin Lamb MD at 13:08 EST Tel , Service support ,
--- NOTE | 2021-10-27 12:35 | RAD_ITS ---
STUDY: X-RAY - SACRUM/COCCYX REASON FOR EXAM: Female, 81 years old. PELVIC PAIN TECHNIQUE: 3 view(s) of the sacrum and coccyx were obtained. COMPARISON: 05/14/2021 FINDINGS: Normal bilateral sacroiliac joints. Normal visualized sacral ala and fused sacral bodies. Normal sacrococcygeal junction with a normal angulation. Normal coccygeal segments. The presacral soft tissue structures are unremarkable. RAD/Sacrum-Coccyx min 2 Views IMPRESSION: Normal x-rays of the sacrum and coccyx. Electronically Signed: Nithin Lamb MD at 17:02 EST Tel , Service support ,
== END ==
PROVIDERS: PCP Internal Medicine; Referring Provider Anesthesiology Pain Medicine; Visit Provider Anesthesiology Pain Medicine
DX: R10.2 Pelvic and perineal pain (principal)
CPT/HCPCS: 72220; 73521

== ENCOUNTER 2021-10-31 17:20 | Emergency (ER) | payer MEDICARE, BC, SELFPAY ==
[2021-10-31 17:21] VITALS: BP 173/68; PULSE 95; RESP 16; TEMP 36.2; O2SAT 94; BMI 34.4
--- NOTE | 2021-10-31 18:16 | CT_ITS ---
STUDY: CT ABDOMEN AND PELVIS WITH CONTRAST REASON FOR EXAM: Female, 81 years old. abd pain RADIATION DOSAGE (If Supplied By Facility): CTDIvol = ( 17.64 ) mGy, DLP = ( 925.88 ) mGycm TECHNIQUE: Transaxial images were obtained from the dome of the diaphragm to the symphysis pubis without oral contrast. IV 100mL Isovue-370 was administered. Sagittal and coronal images were reconstructed. Individualized dose optimization techniques were used for this CT. COMPARISON: None. FINDINGS: The visualized lung bases are unremarkable. The visualized portions of the heart are within normal limits. Simple cyst of the right hepatic lobe. No required imaging follow-up needed given high likelihood of benign nature. Normal gallbladder and extrahepatic biliary system. Normal spleen. 3.0 x 3.5 cm cyst of the posterior pancreatic head/uncinate process. ACR White Paper guidelines (Lucinda, et al. JACR 2017; 14(7):911-923) suggest a contrast-enhanced, pancreas-protocol abdominal CT or MR in 6 months. Normal bilateral adrenal glands. Calculi of the right kidney measured up to 9 mm. Tiny punctate calculi in the left kidney. No hydronephrosis or ureteral calculi. There is a small hiatal hernia. Normal small intestine. Moderate fecal retention throughout the colon. No colon wall thickening. The appendix is visualized and appears normal. There is diffuse atherosclerotic calcification of the abdominal aorta, without a demonstrated aneurysm. Normal inferior vena cava. Normal retroperitoneum. Normal urinary bladder. There is a small umbilical hernia containing fat. There are diffuse degenerative changes of the visualized lumbar spine. Operative changes of the proximal right femur. Multilevel kyphoplasty. T12 compression fracture is new since prior lumbar spine x-ray. Vertebral augmentation of L1, L2, L3 with similar compression fracture of L4. Transitional anatomy at L5. CT/Abdomen/Pelvis W IV Cont ONLY IMPRESSION: 1. Mild T12 compression fracture, new since prior lumbar spine x-ray. 2. Interval L1 and L2 kyphoplasty. Previous L3 kyphoplasty. Stable L4 compression fracture. Transitional anatomy of L5. 3. Moderate colonic fecal retention. 4. 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 Recommend follow-up in 6 months, as above. Electronically Signed: Matty Lamas MD ([place]) at 19:41 EST , Service support ,
--- NOTE | 2021-10-31 18:16 | EKG12_ITS ---
Test Reason : CP Blood Pressure : / mmHG Vent. Rate : 114 BPM Atrial Rate : 114 BPM P-R Int : 148 ms QRS Dur : 086 ms QT Int : 336 ms P-R-T Axes : 061 000 044 degrees QTc Int : 463 ms Sinus tachycardia Otherwise normal ECG Confirmed by JUNE LOPEZ, ANNMARIE ([id number]), medical editor GOGO RIBERA ([id number]) on 11/04/2021 10:10:02 AM Referred By: LUCIUS Confirmed By:ANNMARIE WATKINS MD
--- NOTE | 2021-10-31 18:18 | EDS_ITS ---
HPI HPI - GI History of Present Illness Chief Complaint: Abd Pain Informant: patient and family Narrative Narrative: He takes extensive conversations over 3 visits in excess of 30 minutes to discuss the situation with the patient and her granddaughter to get the story of what got her here today. Patient evidently has been dealing a lot with back pain. It sounds like she has had kyphoplasty and possible injections. She does not understand why she still has trouble standing up straight and having pain. However, she is not complaining of back pain today. She is complaining of abdominal pain. Sometimes she says right upper quadrant but she points to other areas to. She states she had 20 x-rays on Tuesday that should have shown this area. However she states she was not having pain them. However that she then states she has been having pain in this area. I cannot get a consistent answer from her. Her granddaughter states that she complains of different pains in different areas almost every single day for the last 6 nikky hs. They have brought her into multiple facilities for evaluation. The only thing that has been found is compression fractures that have been treated. Patient denies nausea vomiting or diarrhea. She has constipation frequently but she has not been having this the last few days. She is on 180 hydrocodone each month per the [facility] report. She has had prior appendectomy but no other abdominal surgery. She is not currently on Eliquis because of recent kyphoplasties. Nothing specifically makes the pains better or worse. She evidently is eating and drinking. [facility] Medical History Acid reflux Anemia Asthma Benign paroxysmal positional vertigo Chronic kidney disease, stage 3 Essential hypertension GERD (gastroesophageal reflux disease) History of Palmer's esophagus History of malaria Iron deficiency anemia due to chronic blood loss Leukocytosis Lower back pain Lymphedema Polymyalgia rheumatica Pressure injury of left buttock, stage 2 Pressure injury of right buttock, stage 2 Pulmonary embolism Stage 3 chronic kidney disease Thrombocythemia Home Medications apixaban [Eliquis] 2.5 mg PO BID 05/14/21 [History Last Taken Unknown] doxepin 25 mg PO QHS 05/14/21 [History Last Taken Unknown] furosemide [Lasix] 40 mg PO DAILY 05/14/21 [History Last Taken Unknown] hydrocodone-acetaminophen 2 tab PO Q8H PRN 05/14/21 [History Last Taken Unknown] albuterol sulfate 90 mcg/actuation aerosol inhaler 2 puff INHALATION Q6H PRN 08/03/21 [History Last Taken Unknown] ezetimibe 10 mg tablet 10 mg PO DAILY 08/03/21 [History Last Taken Unknown] losartan 50 mg PO DAILY 08/03/21 [History Last Taken Unknown] pantoprazole 40 mg tablet,delayed release 40 mg PO DAILY 08/03/21 [History Last Taken Unknown] prednisone 5 mg tablet 5 mg PO DAILY 08/03/21 [History Last Taken Unknown] acetaminophen 650 mg PO Q4H PRN 08/12/21 [History Last Taken Unknown] potassium chloride 40 meq PO DAILY 08/12/21 [History Last Taken Unknown] cephalexin 500 mg PO 10/01/21 [History Last Taken Unknown] doxycycline monohydrate 100 mg tablet 100 mg PO BID #14 tab 10/19/21 [Rx Last Taken Unknown] nitrofurantoin monohyd/m-cryst [Macrobid] 100 mg PO BID #14 cap 10/31/21 [Rx Last Taken Unknown] Allergy/AdvReac Type Severity Reaction Status Date / Time cefuroxime [From Ceftin] AdvReac Severe Itching Verified 10/31/21 17:25 Ktzvcuu-LNY-QfY Reductase AdvReac Severe Other Verified 10/31/21 17:25 Inhibitor [Cslgkrx-Hpq-Yot Reductase Inhibitor] prochlorperazine AdvReac Intermediate Other Verified 10/31/21 17:25 [From Compazine] Family History Mother Cancer of eye Brother Heart disease Alzheimer disease Surgical History History of appendectomy Status post right foot surgery Social History Smoking Status: Never smoker second hand exposure: No alcohol intake: never substance use type: does not use deana/christian: Yazidism seatbelt use: always do you feel safe at home: Yes ROS ROS ED Constitutional Constitutional ED: Denies chills or fever(s) ENT ENT ED: Denies rhinorrhea Cardiovascular Cardiovascular: Denies chest pain or palpitations Respiratory/Chest Respiratory/Chest: Denies cough or dyspnea Gastrointestinal Gastrointestinal: Reports abdominal pain; Denies diarrhea, nausea or vomiting Genitourinary Genitourinary ED: Denies dysuria or hematuria Musculoskeletal Musculoskeletal: Reports back pain and other Details: Chronic back pain but not having an issue with it at this time. ; Denies arthralgias or myalgias Integumentary Denies rash Neurologic Neurologic: Denies headache(s) Psychiatric Psychiatric: Reports anxiety and depression Endocrine Endocrinology: Denies polydipsia or polyuria Hematologic/Lymphatic Hematologic/Lymphatic: Denies easy bleeding or easy bruising Allergic/Immunologic Allergic/Immunologic ED: Denies mouth swelling or urticaria EXAM Physical Exam Const Vital Signs: 10/31/21 17:21 10/31/21 18:29 Temperature 97.1 F L Temperature Source Temporal Pulse Rate 95 Respiratory Rate 16 18 Blood Pressure 173/68 H Blood Pressure Mean 103 Pulse Ox 94 Oxygen Delivery Method Room Air Patient did walk back to her room with her walker without difficulties. She is a bit kyphotic. She is in no acute distress. Positive well nourished and well developed General Appearance ED: well developed and NAD HEENT normocephalic and atraumatic Eyes General Eye ED: Negative for pale conjunctiva or scleral icterus Neck no JVD Resp normal respiratory effort and clear to auscultation bilaterally Auscultation: Negative for rales, rhonchi or wheezes Cardio regular rate and regular rhythm GI non-tender and non-distended Auscultation: normoactive bowel sounds Palpation: soft Back/Spine no CVA tenderness General Back: Negative for CVA tenderness Neuro Neuro Narrative: Patient is alert and oriented. However, she gets frustrated easily. Sensorium / Orientation: alert Skin Rashes: no rashes MDM MDM MDM Narrative Medical decision making narrative: I had extensive conversations with the patient and her granddaughter in order to allow us to do an evaluation today. Patient states she had x-rays on Tuesday and that should show everything that we need for her abdominal pain today. I explained that her x-rays were of her lower spine and hip and pelvis areas. These x-rays do not have anything to do with right upper quadrant or upper abdominal pain. She states she does not believe that and does not want any further testing. She states she has had so many blood tests and x-rays and CAT scans that she does not want anymore. Yet she states she wants me to tell her what is causing her pain. I tell her that there are many concerns for the pain but I do not know the exact cause of it. But I am concerned with her having abdominal pain if this could be different than her normal back pain. I explained that it could be radicular pain. But without further evaluation I cannot give her a definitive answer. Between myself and her granddaughter we were able to convince her to initiate an evaluation today. Patient is calm her and feels better now after some meds. Her CT shows a lot of changes but and these are not acute other than possibly subacute T12 compression fracture that is new from september. The most recent x-rays done were the but those did not cover this area. The most recent x-rays it covered the T12 were done on 01 October. I also discussed with the patient that her urine does hint of a UTI. It is cloudy. White count is up. Leukocyte esterase is positive. She would like to hold off on treating this. I will write for Macrobid. If she chooses to take it she can do that. But we can base treatment also on culture in 2 days. If she develops fever she needs to start this. She does have a slight white count. Patient is comfortable going home. She will follow up with her pain management doctor. She would like to see him and hopefully be able to get another kyphoplasty because those have helped her. I will leave this decision between her and her physician who can make that decision best. Lab Data Labs: Laboratory Results - last 24 hr 10/31/21 10/31/21 10/31/21 18:25 18:25 19:15 WBC 13.5 H RBC 4.55 Hgb 13.5 Hct 43.8 MCV 96.3 MCH 29.7 MCHC 30.8 L RDW Std Deviation 63.5 H RDW Coeff of Khalida 17.6 H Plt Count 276 MPV 11.2 Immature Gran % (Auto) 0.400 Neut % (Auto) 72.6 H Lymph % (Auto) 16.0 L Gates % (Auto) 8.5 Eos % (Auto) 2.1 Baso % (Auto) 0.4 Absolute Neuts (auto) 9.8 H Absolute Lymphs (auto) 2.16 Nucleated RBC % 0 Sodium 142 Potassium 3.3 L Chloride 104 Carbon Dioxide 29.0 Anion Gap 9 BUN 23 H Creatinine 0.92 Estim Creat Clear Calc 58.58 Est GFR (MDRD) Af Amer 76 Est GFR (MDRD) Non-Af 63 BUN/Creatinine Ratio 25.1 H Glucose 111 H Calcium 9.9 Total Bilirubin 0.80 AST 34 ALT 82 H Alkaline Phosphatase 128 H Total Protein 7.6 Albumin 3.8 Globulin 3.8 Albumin/Globulin Ratio 1.0 Lipase 94 Urine Color Yellow Urine Clarity Sl. Cloudy Urine pH 6.5 Ur Specific Rowena 1.010 Urine Protein 30 H Urine Glucose (UA) Normal Urine Ketones Negative Urine Occult Blood 25 H Urine Nitrite Negative Urine Bilirubin Negative Urine Urobilinogen Normal Ur Leukocyte Esterase 100 H Urine RBC 0-5 SEEN Urine WBC 10-25 SEEN Ur Squamous Epith Cells 0-5 SEEN Urine Bacteria 0 SEEN Hyaline Casts 0 SEEN Urine Mucus 0 SEEN Radiography Diagnostic Testing: Clinical Impression(s) from Imaging Studies Abdomen/Pelvis CT 10/31/21 18:16 IMPRESSION: 1. Mild T12 compression fracture, new since prior lumbar spine x-ray. 2. Interval L1 and L2 kyphoplasty. Previous L3 kyphoplasty. Stable L4 compression fracture. Transitional anatomy of L5. 3. Moderate colonic fecal retention. 4. 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 Recommend follow-up in 6 months, as above. Electronically Signed: Matty Lamas MD ([place]) at 19:41 EST , Service support , Discharge Plan Triage Chief Complaint: Abd Pain ED Provider: Angelito Feldman Dx/Rx/DC Orders Clinical Impression: Chronic back pain, Abdominal pain, Pyuria Instructions: Abdominal Pain, ED Fracture, Vertebral Compression Prescriptions: New nitrofurantoin monohyd/m-cryst [Macrobid] 100 mg capsule 100 mg PO BID Qty: 14 RF: 0 No Action pantoprazole 40 mg tablet,delayed release (DR/EC) 40 mg PO DAILY RF: 0 prednisone 5 mg tablet 5 mg PO DAILY RF: 0 ezetimibe [Zetia] 10 mg tablet 10 mg PO DAILY RF: 0 albuterol sulfate [Ventolin HFA] 90 mcg/actuation HFA aerosol inhaler 2 puff inhalation Q6H PRN (Reason: SOB) RF: 0 doxepin 25 mg Capsule 25 mg PO QHS RF: 0 hydrocodone-acetaminophen 5-325 mg Tablet 2 tab PO Q8H PRN (Reason: Pain) RF: 0 furosemide [Lasix] 40 mg Tablet 40 mg PO DAILY RF: 0 Eliquis 2.5 mg Tablet 2.5 mg PO BID RF: 0 losartan 50 mg 50 mg PO DAILY RF: 0 acetaminophen 325 mg Tablet 650 mg PO Q4H PRN (Reason: PAIN/FEVER) RF: 0 potassium chloride 20 mEq Tablet Extended Release 40 meq PO DAILY RF: 0 cephalexin 500 mg capsule 500 mg PO RF: 0 doxycycline monohydrate 100 mg tablet 100 mg PO BID Qty: 14 RF: 0 Primary Care Provider: Leidy Santiago Referrals: Leidy Santiago MD [Primary Care Provider] - As soon as possible Disposition Disposition: Home, Self Care
[2021-10-31] MEDS: Morphine 4 MG/ML Syringe IV (18:25)
[2021-10-31 18:29] VITALS: RESP 18
[2021-10-31 18:47] LABS: Absolute Lymphocyte Count 2.16 X10^3/uL (0.83-4.51); Absolute Neutrophil Count 9.8 X10^3/uL (2.0-7.7); Basophil# 0.05 X10^3/uL; Basophil% 0.4 % (0-1); Eosinophil# 0.28 X10^3/uL; Eosinophils% 2.1 % (0-5); Hematocrit 43.8 % (37-47); Hemoglobin 13.5 g/dL (12.0-15.0); Lymphocyte # 2.16 X10^3/ul (0.83-4.51); Mean Corp Hgb Conc 30.8 g/dL (32-36); Mean Corpuscular Hgb 29.7 pg (27.0-32.0); Mean Corpuscular Volume 96.3 fL (81-99); Mean Platelet Vol. 11.2 fl (6.2-12.0); Monocyte# 1.14 X10^3/uL; Monocyte% 8.5 % (0-10); NRBC Flagged by Analyzer 0 % (0-5); Neutrophil % 72.6 % (47-70); Platelet Count 276 K/mm3 (150-450); RBC Distribution Width CV 17.6 % (11.6-14.6); RBC Distribution Width SD 63.5 fl (35.1-43.9); Red Blood Count 4.55 M/mm3 (4.2-5.4); White Blood Count 13.5 K/mm3 (4.4-11.0)
[2021-10-31 18:58] LABS: AST(SGOT) 34 U/L (15-37); Alanine Aminotransfer ALT/SGPT 82 U/L (13-56); Albumin, Serum 3.8 g/dL (3.2-5.0); Alkaline Phosphatase 128 U/L (45-117); Anion Gap 9 (5-15); BUN 23 mg/dL (7-18); BUN/Creat Ratio 25.1 RATIO (10-20); Calcium,Total 9.9 mg/dL (8.5-10.1); Chloride 104 mmol/L (98-107); Creatinine, Serum 0.92 mg/dL (0.55-1.02); EST Glomerular Filtration Rate 63 mL/min (>60); Est Glom Filt Rate - Afr Amer 76 mL/min (>60); Estimated Creatinine Clearance 58.58 ml/min; Globulin 3.8 g/dL (2.2-4.2); Glucose 111 mg/dL (74-106); Lipase 94 U/L (73-393); Potassium 3.3 mmol/L (3.5-5.1); Protein, Total 7.6 g/dL (6.4-8.2); Sodium Level 142 mmol/L (136-145)
[2021-10-31 19:25] LABS: Bacteria 0 SEEN /hpf (None Seen); Mucous, Urine 0 SEEN /hpf (<or=2+)
[2021-10-31 19:35] LABS: Color, Urine Yellow (Yellow); Glucose, Dipstick Normal (Normal); Ketone-Dipstick Negative (Negative); Leukocyte Esterase-Dipstick 100 /ul (Negative); Nitrite-Dipstick Negative (Negative); Occult Blood-Urine 25 /ul (Negative); Protein-Dipstick 30 mg/dl (Negative); Urine Bilirubin Dipstick Negative (Negative); Urine Clarity Sl. Cloudy (Clear); Urine Urobilinogen Normal (Normal); Urine pH 6.5 (5.0 - 8.0)
[2021-10-31 19:45] LABS: Squamous Epithelial Cells - UA 0-5 SEEN /hpf (5-10)
[2021-10-31 19:48] LABS: White Blood Cells 10-25 SEEN /hpf (0-5)
[2021-10-31 19:49] LABS: Red Blood Cells-Urine 0-5 SEEN /hpf (0-5)
[2021-10-31 19:50] LABS: Hyaline Cast 0 SEEN /lpf (0-5)
[2021-10-31 20:41] VITALS: BP 165/78; PULSE 88; RESP 18; O2SAT 97
== END 2021-10-31 20:42 | disposition home or self-care (01) ==
PROVIDERS: Emergency Provider Emergency Medicine; PCP Internal Medicine
DX: M54.9 Dorsalgia, unspecified (principal); G89.29 Other chronic pain; R10.11 Right upper quadrant pain; R82.81 Pyuria; D50.0 Iron deficiency anemia secondary to blood loss (chronic); D75.839 Thrombocytosis, unspecified; H81.10 Benign paroxysmal vertigo, unspecified ear; I12.9 Hypertensive chronic kidney disease with stage 1 through stage 4 chronic kidney disease, or unspecified chronic kidney disease; I89.0 Lymphedema, not elsewhere classified; J45.909 Unspecified asthma, uncomplicated; K21.9 Gastro-esophageal reflux disease without esophagitis; K59.00 Constipation, unspecified; L89.312 Pressure ulcer of right buttock, stage 2; L89.322 Pressure ulcer of left buttock, stage 2; M35.3 Polymyalgia rheumatica; M48.54XA Collapsed vertebra, not elsewhere classified, thoracic region, initial encounter for fracture; M48.56XA Collapsed vertebra, not elsewhere classified, lumbar region, initial encounter for fracture; N18.30 Chronic kidney disease, stage 3 unspecified; Z79.01 Long term (current) use of anticoagulants; Z79.52 Long term (current) use of systemic steroids; Z87.19 Personal history of other diseases of the digestive system; Z90.49 Acquired absence of other specified parts of digestive tract; Z79.899 Other long term (current) drug therapy
CPT/HCPCS: 74177; 80053; 81001; 83690; 85025; 87077; 87086; 87088; 87186; 93005; 96361; 96374; 99283; J7030; Q9967; A4216

== ENCOUNTER 2021-11-05 13:22 | Emergency (ER) | payer MEDICARE, BC, SELFPAY ==
[2021-11-05 13:23] VITALS: BP 126/59; PULSE 109; RESP 20; TEMP 36.4; O2SAT 98; BMI 34.6
--- NOTE | 2021-11-05 14:21 | VDLE_ITS ---
Reason For Study: swelling RIGHT LEFT GSV is normal. GSV is normal. CFV is compressible, spontaneous, phasic, CFV is compressible, spontaneous, phasic, competent and demonstrates normal competent, and demonstrates normal augmentation. augmentation. Prox FV is compressible. PTV is compressible. Mid FV, Dist FV, POP V, T/P Trunk, PTV, LT PerV is compressible. Peroneal V, Gastroc V, and Soleus V are Prox and Mid FV are compressible. dilated and noncompressible. Dist FV, POP V, T/P Trunk, Soleus V, and Procedure Gastroc V are dilated adn noncompressible. This is a venous duplex using B-mode, color flow and spectral Doppler. Exam performed portable in ED. The exam was diagnostic. Difficult to image calf veins due to pt body habitus. A preliminary report was called and/or faxed to Dr. Reza. VL/Venous Duplex US - Ariel Extrem Interpretation Summary Acute deep venous thrombosis right mid and distal femoral, popliteal, tibiopero robert trunk, posterior tibial, peroneal, gastrocnemius, and soleus veins Acute deep venous thrombosis distal left femoral, popliteal, tibioperoneal trun k, soleus, and gastrocnemius veins The examination was felt to be technically difficult secondary to body habitus Patent and compressible bilateral great saphenous veins Ordering Physician: Meliton Reza Performed By: Jerrell Yeager RVT
--- NOTE | 2021-11-05 14:22 | EX.ED.DYSGE1 ---
HPI History of Present Illness Chief Complaint: Abd Pain Detail of Chief Complaint: Back in the abdominal pain Informant: patient Narrative Narrative: Patient presents to the emergency department with complaint of chronic back and abdomen pain. Patient was seen in the emergency department for the same complaint 5 days ago and had a work-up including a CT scan of her abdomen pelvis that really did not show anything significant. Patient has had back pain for over 2 years and is in pain management. She has had prior kyphoplasty for vertebral fractures. Patient also complains of lower abdominal discomfort. She denies chest pain or shortness of breath. Patient states that she has severe pain and she can only walk about 3 steps and have severe pain and has to sit down. Denies any new falls or injuries. She denies vomiting or diarrhea. She denies fever. Prior similar symptoms: Yes [facility] Medical History Acid reflux Anemia Asthma Benign paroxysmal positional vertigo Chronic kidney disease, stage 3 Essential hypertension GERD (gastroesophageal reflux disease) History of Palmer's esophagus History of malaria Iron deficiency anemia due to chronic blood loss Leukocytosis Lower back pain Lymphedema Polymyalgia rheumatica Pressure injury of left buttock, stage 2 Pressure injury of right buttock, stage 2 Pulmonary embolism Stage 3 chronic kidney disease Thrombocythemia Home Medications apixaban [Eliquis] 2.5 mg PO BID 05/14/21 [History Last Taken Unknown] doxepin 25 mg PO QHS 05/14/21 [History Last Taken 11/04/21] furosemide [Lasix] 40 mg PO DAILY 05/14/21 [History Last Taken 11/04/21] hydrocodone-acetaminophen 2 tab PO Q8H PRN 05/14/21 [History Last Taken 11/05/21] albuterol sulfate 90 mcg/actuation aerosol inhaler 2 puff INHALATION Q6H PRN 08/03/21 [History Last Taken Unknown] pantoprazole 40 mg tablet,delayed release 40 mg PO DAILY 08/03/21 [History Last Taken 11/05/21] prednisone 5 mg tablet 5 mg PO DAILY 08/03/21 [History Last Taken 11/04/21] nitrofurantoin monohyd/m-cryst [Macrobid] 100 mg PO BID #14 cap 10/31/21 [Rx Last Taken 11/05/21] apixaban [Eliquis DVT-PE Treat 30D Start] 5 mg PO BID #74 tab 11/05/21 [Rx Last Taken Unknown] ascorbic acid (vitamin C) 500 mg PO DAILY 11/05/21 [History Last Taken 11/04/21] buprenorphine 5 mcg TRANSDERMAL QWEEK 11/05/21 [History Last Taken 11/02/21] ferrous sulfate 325 mg PO DAILY 11/05/21 [History Last Taken 11/04/21] losartan 50 mg PO DAILY 11/05/21 [History Last Taken 11/05/21] Allergy/AdvReac Type Severity Reaction Status Date / Time cefuroxime [From Ceftin] AdvReac Severe Itching Verified 11/05/21 14:22 Itrnktq-EKC-WoV Reductase AdvReac Severe Other Verified 11/05/21 14:22 Inhibitor [Tebqjmu-Vcl-Tgq Reductase Inhibitor] prochlorperazine AdvReac Intermediate Other Verified 11/05/21 14:22 [From Compazine] Family History Mother Cancer of eye Brother Heart disease Alzheimer disease Surgical History History of appendectomy Status post right foot surgery Social History Smoking Status: Never smoker second hand exposure: No alcohol intake: never substance use type: does not use deana/denominational: Jainism seatbelt use: always do you feel safe at home: Yes ROS ROS ED Constitutional Constitutional ED: Reports systems reviewed and no addt'l complaints, except as documented; Denies body ache(s), change in weight or chills Eyes Eyes: Denies acute decrease in peripheral vision, change in vision, double vision or loss of vision ENT ENT ED: Reports none; Denies ear pain, lip swelling, loss taste/smell, neck pain, otalgia or sore throat Cardiovascular Cardiovascular: Reports none; Denies abdominal pain, chest pain with activity, leg edema, lightheadedness, palpitations, rapid heart rate or syncope Respiratory/Chest Respiratory/Chest: Reports none; Denies change in mental status, dry cough, dyspnea, hemoptysis, shortness of breath at rest or shortness of breath with exertion Gastrointestinal Gastrointestinal: Reports none and abdominal pain; Denies change in stool character, diarrhea, hematemesis, hematochezia, melena, rectal bleeding or vomiting Genitourinary Genitourinary ED: Reports none; Denies abdominal discomfort, anuria, dysuria, genital pain or polyuria Musculoskeletal Musculoskeletal: Reports none and back pain; Denies arthralgias, difficulty walking, extremity pain, muscle weakness or myalgias Integumentary Reports none; Denies abscess or rash Neurologic Neurologic: Reports none; Denies abnormal gait, confusion, focal weakness, frequent falls, headache(s), loss of vision, numbness, paresthesias, radicular pain, vertigo or weakness Psychiatric Psychiatric: Reports systems reviewed and no addt'l complaints, except as documented and none; Denies behavioral changes, confusion, difficulty concentrating, hallucinations, suicidal ideation, tactile hallucinations or visual hallucinations Endocrine Endocrinology: Denies none, cold intolerance, excessive sweating, fatigue or heat intolerance Hematologic/Lymphatic Hematologic/Lymphatic: Reports none; Denies anemia, easy bleeding or easy bruising Allergic/Immunologic Allergic/Immunologic ED: Denies as per HPI, none, lip swelling, mouth swelling, throat swelling, tongue swelling or hives EXAM Physical Exam Const Vital Signs: 11/05/21 13:23 11/05/21 14:52 11/05/21 15:21 Temperature 97.6 F L 98 F 97.8 F Temperature Source Temporal Temporal Temporal Pulse Rate 109 H 104 H 84 Respiratory Rate 20 H 18 16 Blood Pressure 126/59 H 129/72 H 118/47 L Blood Pressure Mean 81 91 70 Pulse Ox 98 97 97 Oxygen Delivery Method Room Air Room Air Room Air 11/05/21 16:11 Temperature 98.9 F Temperature Source Temporal Pulse Rate 97 Respiratory Rate 14 Blood Pressure 135/55 H Blood Pressure Mean 81 Pulse Ox 96 Oxygen Delivery Method Room Air Positive well nourished and well developed General Appearance ED: well developed and NAD HEENT Reports TM's clear and moist mucous membranes normocephalic and atraumatic; Negative for trauma or tenderness Tympanic Membrane ED: Yes TM's clear Eyes PERRL and EOMs intact bilaterally General Eye ED: Negative for pale conjunctiva or scleral icterus Neck no lymphadenopathy, supple and no JVD General: Negative for tenderness Chest Wall inspection of chest normal and palpation of chest normal Chest: Negative for tenderness Resp normal respiratory effort and clear to auscultation bilaterally Effort and Inspection: Negative for respiratory distress or pain with movement Auscultation: Negative for rhonchi, wheezes or diminished lung sounds Cardio regular rate, regular rhythm, S1 normal heart sound, S2 normal heart sound and no murmurs Peripheral Pulses: pulses 2+ throughout GI normal to inspection, nondistended, normoactive bowel sounds, soft to palpation, non-distended and no masses GI Narrative: Abdomen seems benign but she is tender in her lower abdomen diffusely on palpation. She has an umbilical hernia that is not tender and no evidence of incarceration. Back/Spine no CVA tenderness and no thoracic nor lumbar tenderness Extremity normal to inspection Extremity Narrative: +2 edema both lower extremities General Extremety ED: Yes edema General Extremity: edema Neuro oriented x3, CN's II-XII intact bilaterally, no sensory deficits noted and gait normal Sensorium / Orientation: awake, alert, oriented to person, oriented to place and oriented to time Motor Exam: strength 5/5 throughout and strength abnormal Psych mental status grossly normal Skin no rashes or lesions noted and no wounds MDM MDM MDM Narrative Medical decision making narrative: IV line established on arrival. Patient was medicated with morphine and Zofran she had good pain relief with that. Lab work unremarkable. Patient had venous Dopplers of both lower extremities given the edema and noted that she had bilateral DVTs. Patient does have history of prior PEs and was supposed to be on Eliquis however has been off of it for about a month because of the her kyphoplasty and injections in her back through pain management. Patient also had a CTA of the chest which was negative for PE. Given her ongoing back pain I felt this might be a source of the pain but does not not appear to be. At this point patient will be started back on her Eliquis. Patient to follow-up with her primary care physician and pain management doctor for her chronic back pain and abdominal pain. I do not feel any further imaging of her abdomen is indicated as she had a CT scan of her abdomen 5 days ago. Lab Data Attestation: I reviewed the patient's lab results. Labs: Laboratory Results - last 24 hr 11/05/21 11/05/21 11/05/21 14:50 14:50 14:50 WBC 9.0 RBC 4.47 Hgb 13.1 Hct 42.4 MCV 94.9 MCH 29.3 MCHC 30.9 L RDW Std Deviation 58.6 H RDW Coeff of Khalida 16.6 H Plt Count 283 MPV 11.3 Immature Gran % (Auto) 0.400 Neut % (Auto) 69.7 Lymph % (Auto) 16.2 L [place] % (Auto) 11.1 H Eos % (Auto) 2.2 Baso % (Auto) 0.4 Absolute Neuts (auto) 6.3 Absolute Lymphs (auto) 1.46 Nucleated RBC % 0 Sodium 139 Potassium 3.0 L Chloride 99 Carbon Dioxide 32.0 Anion Gap 8 BUN 20 H Creatinine 0.82 Estim Creat Clear Calc 63.74 Est GFR (MDRD) Af Amer 87 Est GFR (MDRD) Non-Af 72 BUN/Creatinine Ratio 24.5 H Glucose 123 H Calcium 9.9 Total Bilirubin 0.70 AST 21 ALT 56 Alkaline Phosphatase 125 H Troponin I High Sens 6 B-Natriuretic Peptide 7.0 Total Protein 7.6 Albumin 3.6 Globulin 4.0 Albumin/Globulin Ratio 0.9 Lipase 81 Radiography Diagnostic Testing: Clinical Impression(s) from Imaging Studies Venous Doppler Study 11/05/21 14:21 Interpretation Summary Acute deep venous thrombosis right mid and distal femoral, popliteal, tibioperoneal trunk, posterior tibial, peroneal, gastrocnemius, and soleus veins Acute deep venous thrombosis distal left femoral, popliteal, tibioperoneal trunk, soleus, and gastrocnemius veins The examination was felt to be technically difficult secondary to body habitus Patent and compressible bilateral great saphenous veins Ordering Physician: Meliton Reza Performed By: Jerrell Yeager RVT Chest CTA 11/05/21 15:07 IMPRESSION: ASHD and minor atelectasis within the dependent portion of the lower lobes slightly more pronounced on the left.. No evidence for pulmonary embolus Old compression fractures of L2 and L1 status post kyphoplasty Wedging of superior endplate of T12 of uncertain most likely chronic. If concern for acute fracture MRI recommended Electronically Signed: Srinath Gomez MD at 16:13 EST , Service support , EKG Initial EKG: Attestation: I personally reviewed and interpreted this EKG as follows: Comments: Sinus rhythm with a rate of 85 bpm with no acute ST segment changes Discharge Plan Triage Chief Complaint: Abd Pain ED Provider: Meliton Reza Dx/Rx/DC Orders Clinical Impression: DVT (deep venous thrombosis), Chronic back pain, Abdominal pain Instructions: Abdominal Pain, DVT Dc, ED Abdominal Pain Unkn Cause Fem, ED Back Pain (Acute or Chronic), ED CYSTITIS Female Adult Prescriptions: [place] DVT-PE Treat 30D Start 5 mg (74 tabs) tablets,dose pack 5 mg PO BID Qty: 74 RF: 0 No Action pantoprazole 40 mg tablet,delayed release (DR/EC) 40 mg PO DAILY RF: 0 prednisone 5 mg tablet 5 mg PO DAILY RF: 0 albuterol sulfate [Ventolin HFA] 90 mcg/actuation HFA aerosol inhaler 2 puff inhalation Q6H PRN (Reason: SOB) RF: 0 doxepin 25 mg Capsule 25 mg PO QHS RF: 0 hydrocodone-acetaminophen 5-325 mg Tablet 2 tab PO Q8H PRN (Reason: Pain) RF: 0 furosemide [Lasix] 40 mg Tablet 40 mg PO DAILY RF: 0 Eliquis 2.5 mg Tablet 2.5 mg PO BID RF: 0 nitrofurantoin monohyd/m-cryst [Macrobid] 100 mg capsule 100 mg PO BID Qty: 14 RF: 0 losartan 50 mg tablet 50 mg PO DAILY RF: 0 ascorbic acid (vitamin C) 500 mg Tablet 500 mg PO DAILY RF: 0 ferrous sulfate 325 mg (65 mg iron) Tablet 325 mg PO DAILY RF: 0 buprenorphine 5 mcg/hour patch weekly 5 mcg transdermal QWEEK RF: 0 Primary Care Provider: Leidy Santiago Referrals: Leidy Santiago MD [Primary Care Provider] - Disposition Disposition: Home, Self Care
--- NOTE | 2021-11-05 14:24 | EKG12_ITS ---
Test Reason : AB PAIN Blood Pressure : / mmHG Vent. Rate : 085 BPM Atrial Rate : 085 BPM P-R Int : 156 ms QRS Dur : 096 ms QT Int : 370 ms P-R-T Axes : 058 002 029 degrees QTc Int : 440 ms Normal sinus rhythm Normal ECG Confirmed by JUNE LOPEZ, ANNMARIE ([id number]), editor publications SHELLIE CERVANTES ([id number]) on 11/12/2021 7:54:55 AM Referred By: ELSIE Confirmed By:ANNMARIE WATKINS MD
[2021-11-05] MEDS: Ondansetron 4 MG/2 ML Vial IV (14:43)
[2021-11-05] MEDS: Morphine 4 MG/ML Syringe IV (14:43)
[2021-11-05 14:52] VITALS: BP 129/72; PULSE 104; PULSE 106; RESP 18; TEMP 36.6; O2SAT 97; O2SAT 98
--- NOTE | 2021-11-05 15:07 | CT_ITS ---
STUDY: CTA CHEST REASON FOR EXAM: Female, 81 years old. pe high probability RADIATION DOSAGE (If Supplied By Facility): CTDIvol = ( 9.51 ) mGy, DLP = ( 418.10 ) mGycm TECHNIQUE: The examination was performed with the intravenous administration of IV 100mL Isovue-370. Post-processing of the angiographic images was performed, with multiplanar reformation and 3D reconstruction. Individualized dose optimization techniques were used for this CT. COMPARISON: None. FINDINGS: Normal enhancement of the main pulmonary artery and right and left pulmonary arteries. Normal enhancement of the bilateral peripheral pulmonary arteries. There is no demonstrated pulmonary embolism. Minor atherosclerotic changes of the aorta without evidence for aneurysm There is no demonstrated aortic dissection. Heart size is normal. There appears to be minor coronary artery calcification. Normal mediastinum. Normal hilar regions. Normal visualized trachea and bronchi. The lungs are well expanded. There is minor atelectasis at both lung bases slightly more pronounced on the left.. No focal infiltration. Tiny calcified granuloma in left lower lobe Normal pleura. Normal chest wall structures. Dorsal spine demonstrates degenerative change. There are old compression fractures of L1 and L2 status post kyphoplasty. There is also mild wedging of superior endplate of T12 There is a large hiatal hernia containing predominantly herniated intra-abdominal fat and small portion of the upper stomach. Normal visualized upper abdomen. CT/CTA Chest W/WO Contrast IMPRESSION: ASHD and minor atelectasis within the dependent portion of the lower lobes slightly more pronounced on the left.. No evidence for pulmonary embolus Old compression fractures of L2 and L1 status post kyphoplasty Wedging of superior endplate of T12 of uncertain most likely chronic. If concern for acute fracture MRI recommended Electronically Signed: Srinath Gomez MD at 16:13 EST , Service support ,
[2021-11-05 15:08] LABS: Absolute Lymphocyte Count 1.46 X10^3/uL (0.83-4.51); Absolute Neutrophil Count 6.3 X10^3/uL (2.0-7.7); Basophil# 0.04 X10^3/uL; Basophil% 0.4 % (0-1); Eosinophils% 2.2 % (0-5); Hematocrit 42.4 % (37-47); Hemoglobin 13.1 g/dL (12.0-15.0); Lymphocyte # 1.46 X10^3/ul (0.83-4.51); Lymphocyte % 16.2 % (19-41); Mean Corp Hgb Conc 30.9 g/dL (32-36); Mean Corpuscular Hgb 29.3 pg (27.0-32.0); Mean Corpuscular Volume 94.9 fL (81-99); Mean Platelet Vol. 11.3 fl (6.2-12.0); Monocyte% 11.1 % (0-10); NRBC Flagged by Analyzer 0 % (0-5); Neutrophil # 6.27 X10^3/uL (2.7-7.7); Neutrophil % 69.7 % (47-70); Platelet Count 283 K/mm3 (150-450); RBC Distribution Width CV 16.6 % (11.6-14.6); RBC Distribution Width SD 58.6 fl (35.1-43.9); Red Blood Count 4.47 M/mm3 (4.2-5.4)
[2021-11-05 15:21] VITALS: BP 118/47; PULSE 84; RESP 16; TEMP 36.6; O2SAT 97
[2021-11-05 15:24] LABS: ALB/GLOB Ratio 0.9 RATIO (0.9-2.4); AST(SGOT) 21 U/L (15-37); Alanine Aminotransfer ALT/SGPT 56 U/L (13-56); Albumin, Serum 3.6 g/dL (3.2-5.0); Alkaline Phosphatase 125 U/L (45-117); Anion Gap 8 (5-15); BUN 20 mg/dL (7-18); BUN/Creat Ratio 24.5 RATIO (10-20); Calcium,Total 9.9 mg/dL (8.5-10.1); Chloride 99 mmol/L (98-107); Creatinine, Serum 0.82 mg/dL (0.55-1.02); EST Glomerular Filtration Rate 72 mL/min (>60); Est Glom Filt Rate - Afr Amer 87 mL/min (>60); Estimated Creatinine Clearance 63.74 ml/min; Glucose 123 mg/dL (74-106); Lipase 81 U/L (73-393); Protein, Total 7.6 g/dL (6.4-8.2); Sodium Level 139 mmol/L (136-145); Troponin-I HS 6 pg/mL (3.0-54.0)
[2021-11-05] MEDS: 0.9% Normal Saline 1,000 ML 125 ML IV (15:33)
[2021-11-05 16:11] VITALS: BP 135/55; PULSE 97; RESP 14; TEMP 37.2; O2SAT 96
[2021-11-05 16:44] VITALS: BP 125/63; PULSE 98; RESP 18; TEMP 37; O2SAT 97
[2021-11-05] MEDS: APIXABAN 5 MG TABLET 10 MG PO (16:57)
== END 2021-11-05 17:08 | disposition home or self-care (01) ==
PROVIDERS: Emergency Provider Emergency Medicine; PCP Internal Medicine; Visit Provider Emergency Medicine
DX: I82.413 Acute embolism and thrombosis of femoral vein, bilateral (principal); I82.433 Acute embolism and thrombosis of popliteal vein, bilateral; I82.453 Acute embolism and thrombosis of peroneal vein, bilateral; I82.463 Acute embolism and thrombosis of calf muscular vein, bilateral; I82.443 Acute embolism and thrombosis of tibial vein, bilateral; N18.30 Chronic kidney disease, stage 3 unspecified; R10.31 Right lower quadrant pain; R10.32 Left lower quadrant pain; M54.9 Dorsalgia, unspecified; G89.29 Other chronic pain; I12.9 Hypertensive chronic kidney disease with stage 1 through stage 4 chronic kidney disease, or unspecified chronic kidney disease; J45.909 Unspecified asthma, uncomplicated; Z79.01 Long term (current) use of anticoagulants; Z79.899 Other long term (current) drug therapy; Z86.711 Personal history of pulmonary embolism
CPT/HCPCS: 71275; 80048; 80053; 83690; 83880; 84484; 85025; 93005; 93970; 96361; 96374; 96375; 99284; J7030; Q9967; J2405

== ENCOUNTER → 2021-11-09 | Outpatient (REF) | payer MEDICARE, BC, SELFPAY ==
[2021-11-09 08:33] LABS: Hematocrit 37.3 % (37-47); Hemoglobin 11.3 g/dL (12.0-15.0); Mean Corp Hgb Conc 30.3 g/dL (32-36); Mean Corpuscular Hgb 28.8 pg (27.0-32.0); Mean Corpuscular Volume 95.2 fL (81-99); Mean Platelet Vol. 11.3 fl (6.2-12.0); Platelet Count 346 K/mm3 (150-450); RBC Distribution Width CV 16.2 % (11.6-14.6); RBC Distribution Width SD 57.7 fl (35.1-43.9); Red Blood Count 3.92 M/mm3 (4.2-5.4); White Blood Count 10.3 K/mm3 (4.4-11.0)
[2021-11-09 08:46] LABS: Anion Gap 9 (5-15); BUN 26 mg/dL (7-18); BUN/Creat Ratio 33.2 RATIO (10-20); Calcium,Total 9.7 mg/dL (8.5-10.1); Chloride 99 mmol/L (98-107); Creatinine, Serum 0.78 mg/dL (0.55-1.02); EST Glomerular Filtration Rate 75 mL/min (>60); Est Glom Filt Rate - Afr Amer 91 mL/min (>60); Glucose 129 mg/dL (74-106); Potassium 3.4 mmol/L (3.5-5.1); Sodium Level 138 mmol/L (136-145)
== END | disposition home or self-care (01) ==
LOC: OLS.SWAL 06:55
PROVIDERS: PCP Internal Medicine; Visit Provider Internal Medicine
DX: D64.9 Anemia, unspecified (principal)
CPT/HCPCS: 36415; 80048; 85027

== ENCOUNTER → 2021-11-27 | Outpatient (REF) | payer MEDICARE, SELFPAY ==
[2021-11-27 16:32] LABS: Absolute Lymphocyte Count 1.46 X10^3/uL (0.83-4.51); Absolute Neutrophil Count 10.7 X10^3/uL (2.0-7.7); Basophil# 0.06 X10^3/uL; Basophil% 0.4 % (0-1); Eosinophil# 0.28 X10^3/uL; Eosinophils% 2.1 % (0-5); Hematocrit 26.4 % (37-47); Hemoglobin 7.9 g/dL (12.0-15.0); Lymphocyte # 1.46 X10^3/ul (0.83-4.51); Lymphocyte % 10.8 % (19-41); Mean Corp Hgb Conc 29.9 g/dL (32-36); Mean Corpuscular Hgb 29.3 pg (27.0-32.0); Mean Corpuscular Volume 97.8 fL (81-99); Mean Platelet Vol. 10.8 fl (6.2-12.0); Monocyte# 0.98 X10^3/uL; Monocyte% 7.2 % (0-10); NRBC Flagged by Analyzer 0 % (0-5); Neutrophil # 10.68 X10^3/uL (2.7-7.7); Platelet Count 426 K/mm3 (150-450); RBC Distribution Width CV 16.1 % (11.6-14.6); White Blood Count 13.5 K/mm3 (4.4-11.0)
[2021-11-27 16:36] LABS: ALB/GLOB Ratio 0.8 RATIO (0.9-2.4); AST(SGOT) 15 U/L (15-37); Alanine Aminotransfer ALT/SGPT 38 U/L (13-56); Albumin, Serum 2.8 g/dL (3.2-5.0); Alkaline Phosphatase 75 U/L (45-117); Amylase 37 U/L (25-115); Anion Gap 7 (5-15); BUN 24 mg/dL (7-18); BUN/Creat Ratio 31.1 RATIO (10-20); Calcium,Total 9.1 mg/dL (8.5-10.1); Chloride 105 mmol/L (98-107); Cholesterol 177 mg/dL (200); Creatinine, Serum 0.77 mg/dL (0.55-1.02); EST Glomerular Filtration Rate 77 mL/min (>60); Est Glom Filt Rate - Afr Amer 93 mL/min (>60); Globulin 3.4 g/dL (2.2-4.2); Glucose 116 mg/dL (74-106); High Density Lipoprotein 38 mg/dL; Potassium 4.1 mmol/L (3.5-5.1); Protein, Total 6.2 g/dL (6.4-8.2); Sodium Level 138 mmol/L (136-145); Triglycerides 174 mg/dL; Very Low Density Lipoprotein 35 mg/dL (5-40)
== END | disposition home or self-care (01) ==
LOC: OLS.SWAL 15:55
PROVIDERS: PCP Internal Medicine; Visit Provider Internal Medicine
DX: I10 Essential (primary) hypertension (principal); R10.9 Unspecified abdominal pain
CPT/HCPCS: 36415; 80053; 80061; 82150; 85025

== ENCOUNTER → 2021-12-07 | Outpatient (REF) | payer MEDICARE, BC, SELFPAY ==
[2021-12-07 07:53] LABS: Hematocrit 29.1 % (37-47); Hemoglobin 8.6 g/dL (12.0-15.0); Mean Corp Hgb Conc 29.6 g/dL (32-36); Mean Corpuscular Hgb 29.4 pg (27.0-32.0); Mean Corpuscular Volume 99.3 fL (81-99); Mean Platelet Vol. 10.2 fl (6.2-12.0); Platelet Count 468 K/mm3 (150-450); RBC Distribution Width CV 16.2 % (11.6-14.6); RBC Distribution Width SD 58.7 fl (35.1-43.9); Red Blood Count 2.93 M/mm3 (4.2-5.4); White Blood Count 8.3 K/mm3 (4.4-11.0)
[2021-12-07 08:20] LABS: Anion Gap 4 (5-15); BUN 12 mg/dL (7-18); BUN/Creat Ratio 19.1 RATIO (10-20); Calcium,Total 9.5 mg/dL (8.5-10.1); Chloride 104 mmol/L (98-107); Creatinine, Serum 0.63 mg/dL (0.55-1.02); EST Glomerular Filtration Rate 97 mL/min (>60); Est Glom Filt Rate - Afr Amer 118 mL/min (>60); Glucose 99 mg/dL (74-106); Potassium 3.7 mmol/L (3.5-5.1); Sodium Level 137 mmol/L (136-145)
== END | disposition home or self-care (01) ==
LOC: OLS.SWAL 05:00
PROVIDERS: PCP Internal Medicine; Visit Provider Internal Medicine
DX: D64.9 Anemia, unspecified (principal)
CPT/HCPCS: 36415; 80048; 85027

== ENCOUNTER 2022-01-04 04:00 | Outpatient (REF) | payer MEDICARE, BC, SELFPAY ==
[2022-01-04 08:02] LABS: Hematocrit 26.9 % (37-47); Hemoglobin 8.2 g/dL (12.0-15.0); Mean Corp Hgb Conc 30.5 g/dL (32-36); Mean Corpuscular Hgb 29.1 pg (27.0-32.0); Mean Corpuscular Volume 95.4 fL (81-99); Mean Platelet Vol. 10.6 fl (6.2-12.0); Platelet Count 482 K/mm3 (150-450); RBC Distribution Width CV 14.9 % (11.6-14.6); RBC Distribution Width SD 52.1 fl (35.1-43.9); Red Blood Count 2.82 M/mm3 (4.2-5.4); White Blood Count 12.6 K/mm3 (4.4-11.0)
[2022-01-04 08:23] LABS: Anion Gap 7 (5-15); BUN 24 mg/dL (7-18); BUN/Creat Ratio 30.5 RATIO (10-20); Calcium,Total 8.6 mg/dL (8.5-10.1); Chloride 100 mmol/L (98-107); Creatinine, Serum 0.79 mg/dL (0.55-1.02); EST Glomerular Filtration Rate 75 mL/min (>60); Est Glom Filt Rate - Afr Amer 91 mL/min (>60); Glucose 122 mg/dL (74-106); Potassium 3.5 mmol/L (3.5-5.1); Sodium Level 137 mmol/L (136-145)
== END 2022-01-04 23:59 | disposition home or self-care (01) ==
LOC: OLS.SWAL 04:00
PROVIDERS: PCP Internal Medicine; Visit Provider Internal Medicine
DX: N18.30 Chronic kidney disease, stage 3 unspecified (principal); D50.9 Iron deficiency anemia, unspecified
CPT/HCPCS: 36415; 80048; 85027

== ENCOUNTER → 2022-01-08 | Outpatient (REF) | payer MEDICARE, BC, SELFPAY | END | disposition home or self-care (01) | LOC: OLS.SWAL 14:00 | PROVIDERS: PCP Internal Medicine; Referring Provider Internal Medicine; Visit Provider Internal Medicine | DX: S55.901 Unspecified injury of unspecified blood vessel at forearm level, right arm (principal) | CPT/HCPCS: 87070; 87077; 87186; 87205 ==

== ENCOUNTER → 2022-02-01 | Outpatient (REF) | payer MEDICARE, BC, SELFPAY ==
[2022-02-01 07:32] LABS: Hematocrit 25.9 % (37-47); Hemoglobin 7.6 g/dL (12.0-15.0); Mean Corp Hgb Conc 29.3 g/dL (32-36); Mean Corpuscular Hgb 28.3 pg (27.0-32.0); Mean Corpuscular Volume 96.3 fL (81-99); Mean Platelet Vol. 9.4 fl (6.2-12.0); Platelet Count 447 K/mm3 (150-450); RBC Distribution Width CV 18.3 % (11.6-14.6); RBC Distribution Width SD 63.8 fl (35.1-43.9); Red Blood Count 2.69 M/mm3 (4.2-5.4); White Blood Count 10.2 K/mm3 (4.4-11.0)
[2022-02-01 07:55] LABS: Anion Gap 6 (5-15); BUN 29 mg/dL (7-18); BUN/Creat Ratio 30.1 RATIO (10-20); Calcium,Total 8.9 mg/dL (8.5-10.1); Chloride 104 mmol/L (98-107); Creatinine, Serum 0.96 mg/dL (0.55-1.02); EST Glomerular Filtration Rate 59 mL/min (>60); Est Glom Filt Rate - Afr Amer 72 mL/min (>60); Glucose 120 mg/dL (74-106); Potassium 4.1 mmol/L (3.5-5.1); Sodium Level 137 mmol/L (136-145)
== END | disposition home or self-care (01) ==
LOC: OLS.SWAL 04:00
PROVIDERS: PCP Internal Medicine; Referring Provider Internal Medicine; Visit Provider Internal Medicine
DX: D64.9 Anemia, unspecified (principal)
CPT/HCPCS: 36415; 80048; 85027; J1756; J7050; A4216

== ENCOUNTER 2022-02-09 11:05 | Emergency (ER) | payer MEDICARE, BC, SELFPAY ==
[2022-02-09 11:06] VITALS: BP 142/56; PULSE 103; RESP 22; TEMP 36.6; O2SAT 97; BMI 29.8
[2022-02-09 11:09] VITALS: BP 142/56; PULSE 103; RESP 22; TEMP 36.6; O2SAT 97
--- NOTE | 2022-02-09 11:21 | EKG12_ITS ---
Test Reason : Blood Pressure : / mmHG Vent. Rate : 103 BPM Atrial Rate : 103 BPM P-R Int : 148 ms QRS Dur : 092 ms QT Int : 342 ms P-R-T Axes : 059 004 033 degrees QTc Int : 448 ms Sinus tachycardia Low Voltage QRS (Limb Leads) Confirmed by JUNE LOPEZ, ANNMARIE ([id number]), film editor supervisor KASHIF GODINEZ ([id number]) on 02/10/2022 12:16:45 PM Referred By: ARELIS Confirmed By:ANNMARIE WATKINS MD
--- NOTE | 2022-02-09 11:22 | CT_ITS ---
STUDY: CT ABDOMEN AND PELVIS WITH CONTRAST REASON FOR EXAM: Female, 81 years old. Abdominal pain RADIATION DOSAGE (If Supplied By Facility): CTDIvol = ( 10.12 ) mGy, DLP = ( 903.83 ) mGycm TECHNIQUE: Transaxial images were obtained from the dome of the diaphragm to the symphysis pubis without oral contrast. IV 100mL Isovue-300 was administered. Sagittal and coronal images were reconstructed. Individualized dose optimization techniques were used for this CT. COMPARISON: Comparison is made with prior study dated 10/31/2021. FINDINGS: Mild increased markings at the left lung base suggestive of atelectasis. The visualized portions of the heart are within normal limits. There is a 2.9 cm cyst in the inferior right lobe of the liver. Normal gallbladder and extrahepatic biliary system. Normal spleen. 3 cm x 3.5 cm cyst in the region of the junction of the pancreatic head and uncinate process. Normal bilateral adrenal glands. There is a 6.7 mm calculus in the lower pole of the right kidney. A 4 mm calculus also seen in the lower pole. Stable tiny nonobstructive left intrarenal calculi. Subcentimeter cyst in the left kidney. There is a small hiatal hernia. Normal small intestine. Moderate amount of fecal material is seen in the colon. The appendix is visualized and appears normal. There is diffuse atherosclerotic calcification of the abdominal aorta, without a demonstrated aneurysm. Normal inferior vena cava. Normal retroperitoneum. Distended urinary bladder. There is a small umbilical hernia containing fat. There are diffuse degenerative changes of the visualized lumbar spine. Stable compression fracture of the T12 vertebrae. Prior vertebroplasty of the L1, L2 and L3 vertebrae. Stable compression fracture of the L4 vertebrae. CT/Abdomen/Pelvis W IV Cont ONLY IMPRESSION: Distended urinary bladder. Nonobstructive bilateral intrarenal calculi. Stable examination. Electronically Signed: Ryan Main MD at 13:39 EDT ,
--- NOTE | 2022-02-09 11:22 | EX.ED.DYSGE1 ---
HPI History of Present Illness Chief Complaint: General Illness Narrative Narrative: 81-year-old female presenting with edema in the hands and feet. She states that her hands and feet have been swollen and progressively getting worse. [facility] who started her on Lasix which is prescribed is 80 mg every 3 days. Patient states has been taking this daily. She did not take it today because she did not think she could walk due to her legs being so edematous. She was concerned she would make it to the bathroom. Patient states that she is not specifically short of breath or having chest pain. She does complain of abdominal pain which is diffuse and her abdomen appears larger. She complains of an umbilical hernia. She is not had a fever, chills, cough. [facility] Medical History Acid reflux Anemia Asthma Benign paroxysmal positional vertigo Chronic kidney disease, stage 3 Essential hypertension GERD (gastroesophageal reflux disease) History of Palmer's esophagus History of malaria Iron deficiency anemia due to chronic blood loss Leukocytosis Lower back pain Lymphedema Polymyalgia rheumatica Pressure injury of left buttock, stage 2 Pressure injury of right buttock, stage 2 Pulmonary embolism Stage 3 chronic kidney disease Thrombocythemia Home Medications apixaban [Eliquis] 2.5 mg PO BID 05/14/21 [History Last Taken Unknown] furosemide [Lasix] 80 mg PO CONT 05/14/21 [History Last Taken 11/04/21] hydrocodone-acetaminophen 2 tab PO Q8H PRN 05/14/21 [History Last Taken 11/05/21] albuterol sulfate 90 mcg/actuation aerosol inhaler 2 puff INHALATION Q6H PRN 08/03/21 [History Last Taken Unknown] pantoprazole 40 mg tablet,delayed release 40 mg PO DAILY 08/03/21 [History Last Taken 11/05/21] prednisone 5 mg tablet 5 mg PO DAILY 08/03/21 [History Last Taken 11/04/21] ascorbic acid (vitamin C) 500 mg PO DAILY 11/05/21 [History Last Taken 11/04/21] ferrous sulfate 325 mg PO DAILY 11/05/21 [History Last Taken 11/04/21] losartan 50 mg PO DAILY 11/05/21 [History Last Taken 11/05/21] polyethylene glycol 3350 [Miralax] 17 g PO DAILY 01/25/22 [History Last Taken Unknown] sennosides [senna] 8.6 mg PO DAILY 01/25/22 [History Last Taken Unknown] potassium 40 mg PO DAILY 02/09/22 [History Last Taken Unknown] Allergy/AdvReac Type Severity Reaction Status Date / Time cefuroxime [From Ceftin] AdvReac Severe Itching Verified 01/25/22 13:14 Rucezby-RWH-JwY Reductase AdvReac Severe Other Verified 01/25/22 13:14 Inhibitor [Tadeubh-Xrh-Vou Reductase Inhibitor] prochlorperazine AdvReac Intermediate Other Verified 01/25/22 13:14 [From Compazine] Family History Mother Cancer of eye Brother Heart disease Alzheimer disease Surgical History History of appendectomy Status post right foot surgery Social History Smoking Status: Never smoker second hand exposure: No alcohol intake: never substance use type: does not use deana/gnosticism: [employer] seatbelt use: always do you feel safe at home: Yes ROS ROS ED Constitutional Constitutional ED: Denies chills or fever(s) Eyes Eyes: Denies blurry vision or diplopia ENT ENT ED: Denies rhinorrhea or sore throat Cardiovascular Cardiovascular: Denies chest pain Respiratory/Chest Respiratory/Chest: Denies cough or dyspnea Gastrointestinal Gastrointestinal: Reports abdominal pain; Denies constipation or nausea Genitourinary Genitourinary ED: Denies dysuria or hematuria Musculoskeletal Musculoskeletal: Reports myalgias and other Details: Hand edema and lower extremity edema Integumentary Denies Abrasions or rash Neurologic Neurologic: Denies headache(s) or weakness EXAM Physical Exam Const Vital Signs: 02/09/22 11:06 02/09/22 11:09 02/09/22 11:47 Temperature 97.8 F 97.8 F Temperature Source Oral Oral Pulse Rate 103 H 103 H Respiratory Rate 22 H 22 H Respiratory Effort Normal Non-Labored Respiratory Pattern Normal Blood Pressure 142/56 H 142/56 H Blood Pressure Mean 84 84 Pulse Ox 97 97 Oxygen Delivery Method Room Air Room Air Room Air 02/09/22 13:11 02/09/22 14:55 Temperature 98.3 F Temperature Source Temporal Pulse Rate 107 H 67 Respiratory Rate 18 13 Respiratory Effort Respiratory Pattern Blood Pressure 129/106 H 138/63 H Blood Pressure Mean 113 Pulse Ox 94 Oxygen Delivery Method Room Air Positive well nourished General Appearance ED: NAD HEENT Reports moist mucous membranes Negative for trauma Eyes PERRL and EOMs intact bilaterally General Eye ED: Negative for pale conjunctiva Resp normal respiratory effort and clear to auscultation bilaterally Cardio regular rhythm Rate: tachycardic GI GI Narrative: Mild diffuse tenderness. Extremity Extremity Narrative: Lower extremity pitting edema bilaterally. Mild edema in the bilateral hands as well. No rashes. Neuro oriented x3 and CN's II-XII intact bilaterally Sensorium / Orientation: alert Psych mental status grossly normal Skin no rashes or lesions noted MDM MDM MDM Narrative Medical decision making narrative: Patient presenting with upper and lower extremity edema. Is more prominent in the lower extremities. She is having some abdominal pain which is diffuse and mild. I obtained work-up to rule out CHF but she is not complaining of shortness of breath. EKG is sinus rhythm with a ventricular of 103 bpm without sign of ischemic change or dysrhythmia. Chest x-ray on my interpretation does not show infiltrate or alyce CHF. Radiologist does agree. CBC shows no no leukocytosis. Hemoglobin is stable at 7.7. Creatinine is normal. Electrolytes appear to be within normal limits. BNP low at 7.2. high-sensitivity troponin is less than 3. LFTs and lipase are within normal limits. CT the abdomen pelvis shows distended urinary bladder. The patient has been able to void. Ultimately patient's work-up is normal with exception of the lower extremity edema which is not new. Patient did not take her Lasix today. I spoke to her doctor (Dr. Santiago) who recommended giving her Lasix here and she could manage her at the facility. I did tell her that the patient requested a bedside commode and she states she would work on this. Patient is able to ambulate and is able to get up to bedside commode without difficulty. She has done so multiple times. Impression: 1. Lower extremity edema 2. Abdominal pain Lab Data Attestation: I reviewed the patient's lab results. Labs: Laboratory Results - last 24 hr 02/09/22 02/09/22 02/09/22 11:40 11:40 11:40 WBC 8.4 RBC 2.64 L Hgb 7.7 L Hct 24.1 L MCV 91.3 MCH 29.2 MCHC 32.0 RDW Std Deviation 58.4 H RDW Coeff of Khalida 17.3 H Plt Count 486 H MPV 9.5 Immature Gran % (Auto) 0.400 Neut % (Auto) 62.7 Lymph % (Auto) 17.5 L Swisher % (Auto) 12.7 H Eos % (Auto) 6.0 H Baso % (Auto) 0.7 Absolute Neuts (auto) 5.3 Absolute Lymphs (auto) 1.47 Nucleated RBC % 0 Sodium 137 Potassium 4.1 Chloride 103 Carbon Dioxide 29.0 Anion Gap 5 BUN 26 H Creatinine 0.86 Estim Creat Clear Calc 56.19 Est GFR (MDRD) Af Amer 82 Est GFR (MDRD) Non-Af 68 BUN/Creatinine Ratio 30.4 H Glucose 114 H Calcium 9.4 Total Bilirubin Direct Bilirubin AST ALT Alkaline Phosphatase Troponin I High Sens B-Natriuretic Peptide 7.2 Total Protein Albumin Globulin Lipase Urine Color Urine Clarity Urine pH Ur Specific [place] Urine Protein Urine Glucose (UA) Urine Ketones Urine Occult Blood Urine Nitrite Urine Bilirubin Urine Urobilinogen Ur Leukocyte Esterase Urine RBC Urine WBC Ur Squamous Epith Cells Urine Bacteria Urine Mucus 02/09/22 02/09/22 02/09/22 11:40 11:40 11:40 WBC RBC Hgb Hct MCV MCH MCHC RDW Std Deviation RDW Coeff of Khalida Plt Count MPV Immature Gran % (Auto) Neut % (Auto) Lymph % (Auto) Swisher % (Auto) Eos % (Auto) Baso % (Auto) Absolute Neuts (auto) Absolute Lymphs (auto) Nucleated RBC % Sodium Potassium Chloride Carbon Dioxide Anion Gap BUN Creatinine Estim Creat Clear Calc Est GFR (MDRD) Af Amer Est GFR (MDRD) Non-Af BUN/Creatinine Ratio Glucose Calcium Total Bilirubin 0.30 Direct Bilirubin 0.07 AST 20 ALT 23 Alkaline Phosphatase 75 Troponin I High Sens < 3 L B-Natriuretic Peptide Total Protein 6.4 Albumin 2.8 L Globulin 3.6 Lipase 67 L Urine Color Urine Clarity Urine pH Ur Specific [place] Urine Protein Urine Glucose (UA) Urine Ketones Urine Occult Blood Urine Nitrite Urine Bilirubin Urine Urobilinogen Ur Leukocyte Esterase Urine RBC Urine WBC Ur Squamous Epith Cells Urine Bacteria Urine Mucus 02/09/22 14:12 WBC RBC Hgb Hct MCV MCH MCHC RDW Std Deviation RDW Coeff of Khalida Plt Count MPV Immature Gran % (Auto) Neut % (Auto) Lymph % (Auto) Swisher % (Auto) Eos % (Auto) Baso % (Auto) Absolute Neuts (auto) Absolute Lymphs (auto) Nucleated RBC % Sodium Potassium Chloride Carbon Dioxide Anion Gap BUN Creatinine Estim Creat Clear Calc Est GFR (MDRD) Af Amer Est GFR (MDRD) Non-Af BUN/Creatinine Ratio Glucose Calcium Total Bilirubin Direct Bilirubin AST ALT Alkaline Phosphatase Troponin I High Sens B-Natriuretic Peptide Total Protein Albumin Globulin Lipase Urine Color Yellow Urine Clarity Sl. Cloudy Urine pH 7.0 Ur Specific [place] 1.010 Urine Protein 15 H Urine Glucose (UA) Normal Urine Ketones Negative Urine Occult Blood 150 H Urine Nitrite Negative Urine Bilirubin Negative Urine Urobilinogen Normal Ur Leukocyte Esterase 25 H Urine RBC 10-25 SEEN Urine WBC 0-5 SEEN Ur Squamous Epith Cells 0 SEEN Urine Bacteria 0 SEEN Urine Mucus 0 SEEN Radiography Diagnostic Testing: Clinical Impression(s) from Imaging Studies Abdomen/Pelvis CT 02/09/22 11:22 IMPRESSION: Distended urinary bladder. Nonobstructive bilateral intrarenal calculi. Stable examination. Electronically Signed: Ryan Main MD at 13:39 EDT , Chest X-Ray 02/09/22 11:55 IMPRESSION: Mild degree of increased linear markings at the lung bases slightly more prominent on the left side suggestive of linear atelectasis. Electronically Signed: Ryan Main MD at 12:16 EDT , Discharge Plan Triage Chief Complaint: General Illness ED Provider: Abilio Edmond Dx/Rx/DC Orders Instructions: ED Peripheral Edema, Bilateral Prescriptions: No Action pantoprazole 40 mg tablet,delayed release (DR/EC) 40 mg PO DAILY RF: 0 prednisone 5 mg tablet 5 mg PO DAILY RF: 0 albuterol sulfate [Ventolin HFA] 90 mcg/actuation HFA aerosol inhaler 2 puff inhalation Q6H PRN (Reason: SOB) RF: 0 hydrocodone-acetaminophen 5-325 mg Tablet 2 tab PO Q8H PRN (Reason: Pain) RF: 0 furosemide [Lasix] 40 mg Tablet 80 mg PO CONT RF: 0 Eliquis 2.5 mg Tablet 2.5 mg PO BID RF: 0 sennosides [senna] 8.6 mg Tablet 8.6 mg PO DAILY RF: 0 polyethylene glycol 3350 [Miralax] 17 gram Powder In Packet 17 g PO DAILY RF: 0 losartan 50 mg tablet 50 mg PO DAILY RF: 0 ascorbic acid (vitamin C) 500 mg Tablet 500 mg PO DAILY RF: 0 ferrous sulfate 325 mg (65 mg iron) Tablet 325 mg PO DAILY RF: 0 potassium 20 mg Tablet,Chewable 40 mg PO DAILY RF: 0 Primary Care Provider: Leidy Santiago Referrals: Leidy Santiago MD [Primary Care Provider] - Disposition Disposition: Home, Self Care
--- NOTE | 2022-02-09 11:55 | RAD_ITS ---
STUDY: X-RAY CHEST REASON FOR EXAM: Female, 81 years old. Chest pain TECHNIQUE: Single AP portable view of the chest. COMPARISON: Comparison is made with prior study dated 05/14/2021. FINDINGS: EKG electrodes are seen. Mild increased linear markings at the lung bases slightly more prominent on the left side suggestive of linear atelectasis and/or scarring. There is no demonstrated pleural abnormality. Normal size heart. Normal mediastinum and yelitza. Normal visualized pulmonary arteries. There is atherosclerotic calcification of the aortic arch with tortuosity. There are diffuse degenerative changes of the visualized thoracic spine. Normal visualized ribs, clavicles, and shoulders. Hiatal hernia. RAD/Chest 1 View (Portable) IMPRESSION: Mild degree of increased linear markings at the lung bases slightly more prominent on the left side suggestive of linear atelectasis. Electronically Signed: Ryan Main MD at 12:16 EDT ,
[2022-02-09] MEDS: Morphine 4 MG/ML Syringe IV (11:59)
[2022-02-09] MEDS: Ondansetron 4 MG/2 ML Vial IV (11:59)
[2022-02-09 12:05] LABS: Absolute Lymphocyte Count 1.47 X10^3/uL (0.83-4.51); Absolute Neutrophil Count 5.3 X10^3/uL (2.0-7.7); Anion Gap 5 (5-15); BUN 26 mg/dL (7-18); BUN/Creat Ratio 30.4 RATIO (10-20); Basophil# 0.06 X10^3/uL; Basophil% 0.7 % (0-1); Calcium,Total 9.4 mg/dL (8.5-10.1); Chloride 103 mmol/L (98-107); Creatinine, Serum 0.86 mg/dL (0.55-1.02); EST Glomerular Filtration Rate 68 mL/min (>60); Est Glom Filt Rate - Afr Amer 82 mL/min (>60); Estimated Creatinine Clearance 56.19 ml/min; Glucose 114 mg/dL (74-106); Hematocrit 24.1 % (37-47); Hemoglobin 7.7 g/dL (12.0-15.0); Lymphocyte # 1.47 X10^3/ul (0.83-4.51); Lymphocyte % 17.5 % (19-41); Mean Corpuscular Hgb 29.2 pg (27.0-32.0); Mean Corpuscular Volume 91.3 fL (81-99); Mean Platelet Vol. 9.5 fl (6.2-12.0); Monocyte# 1.07 X10^3/uL; Monocyte% 12.7 % (0-10); NRBC Flagged by Analyzer 0 % (0-5); Neutrophil # 5.27 X10^3/uL (2.7-7.7); Neutrophil % 62.7 % (47-70); Platelet Count 486 K/mm3 (150-450); Potassium 4.1 mmol/L (3.5-5.1); RBC Distribution Width CV 17.3 % (11.6-14.6); RBC Distribution Width SD 58.4 fl (35.1-43.9); Red Blood Count 2.64 M/mm3 (4.2-5.4); Sodium Level 137 mmol/L (136-145); White Blood Count 8.4 K/mm3 (4.4-11.0)
[2022-02-09 12:15] LABS: Troponin-I HS (w/2H Reflex) < 3 pg/mL (3.0-54.0)
[2022-02-09 12:25] LABS: Lipase 67 U/L (73-393)
[2022-02-09 12:26] LABS: AST(SGOT) 20 U/L (15-37); Alanine Aminotransfer ALT/SGPT 23 U/L (13-56); Albumin, Serum 2.8 g/dL (3.2-5.0); Alkaline Phosphatase 75 U/L (45-117); BNP,B-Type NATRIURETIC PEPTIDE 7.2 pg/mL (0-100); Bilirubin, Direct 0.07 mg/dL (0.00-0.30); Globulin 3.6 g/dL (2.2-4.2); Protein, Total 6.4 g/dL (6.4-8.2)
[2022-02-09 13:11] VITALS: BP 129/106; PULSE 107; RESP 18; TEMP 36.8; O2SAT 94
[2022-02-09 13:49] LABS: Reflex Troponin-HS? (from REC) Y
[2022-02-09 14:16] LABS: Bacteria 0 SEEN /hpf (None Seen); Mucous, Urine 0 SEEN /hpf (<or=2+); Squamous Epithelial Cells - UA 0 SEEN /hpf (5-10)
[2022-02-09 14:20] LABS: Color, Urine Yellow (Yellow); Glucose, Dipstick Normal (Normal); Ketone-Dipstick Negative (Negative); Leukocyte Esterase-Dipstick 25 /ul (Negative); Nitrite-Dipstick Negative (Negative); Occult Blood-Urine 150 /ul (Negative); Protein-Dipstick 15 mg/dl (Negative); Urine Bilirubin Dipstick Negative (Negative); Urine Clarity Sl. Cloudy (Clear); Urine Urobilinogen Normal (Normal)
[2022-02-09 14:27] LABS: Red Blood Cells-Urine 10-25 SEEN /hpf (0-5); White Blood Cells 0-5 SEEN /hpf (0-5)
[2022-02-09 14:55] VITALS: BP 138/63; PULSE 67; RESP 13
[2022-02-09] MEDS: Furosemide 40 MG/4 ML Vial IV (16:23)
== END 2022-02-09 16:50 | disposition home or self-care (01) ==
PROVIDERS: Emergency Provider Student in an Organized Health Care Education/Training Program; PCP Internal Medicine; Visit Provider Student in an Organized Health Care Education/Training Program
DX: R60.0 Localized edema (principal); N18.30 Chronic kidney disease, stage 3 unspecified; R10.9 Unspecified abdominal pain; R07.9 Chest pain, unspecified; I12.9 Hypertensive chronic kidney disease with stage 1 through stage 4 chronic kidney disease, or unspecified chronic kidney disease; K21.9 Gastro-esophageal reflux disease without esophagitis; Z79.01 Long term (current) use of anticoagulants; Z79.899 Other long term (current) drug therapy; Z86.711 Personal history of pulmonary embolism
CPT/HCPCS: 71045; 74177; 80048; 80076; 81001; 83690; 83880; 84484; 85025; 93005; 96374; 96375; 99285; Q9967; A4216; J1940; J2405

== ENCOUNTER → 2022-03-01 | Outpatient (REF) | payer MEDICARE, SELFPAY ==
[2022-03-01 10:42] LABS: Hematocrit 27.8 % (37-47); Mean Corp Hgb Conc 28.8 g/dL (32-36); Mean Corpuscular Hgb 27.5 pg (27.0-32.0); Mean Corpuscular Volume 95.5 fL (81-99); Mean Platelet Vol. 9.8 fl (6.2-12.0); Platelet Count 523 K/mm3 (150-450); RBC Distribution Width CV 16.6 % (11.6-14.6); RBC Distribution Width SD 59.2 fl (35.1-43.9); Red Blood Count 2.91 M/mm3 (4.2-5.4)
[2022-03-01 11:11] LABS: Anion Gap 7 (5-15); BUN 27 mg/dL (7-18); BUN/Creat Ratio 36.8 RATIO (10-20); Calcium,Total 9.5 mg/dL (8.5-10.1); Chloride 105 mmol/L (98-107); Creatinine, Serum 0.73 mg/dL (0.55-1.02); EST Glomerular Filtration Rate 81 mL/min (>60); Est Glom Filt Rate - Afr Amer 98 mL/min (>60); Glucose 145 mg/dL (74-106); Magnesium 2.5 mg/dL (1.6-2.6); Potassium 4.5 mmol/L (3.5-5.1); Sodium Level 138 mmol/L (136-145); Uric Acid 5.9 mg/dL (2.6-6.0)
== END | disposition home or self-care (01) ==
LOC: OLS.SWAL 04:00
PROVIDERS: PCP Internal Medicine; Referring Provider Internal Medicine; Visit Provider Internal Medicine
DX: I12.9 Hypertensive chronic kidney disease with stage 1 through stage 4 chronic kidney disease, or unspecified chronic kidney disease (principal); D64.9 Anemia, unspecified
CPT/HCPCS: 36415; 80048; 83735; 84550; 85027

== ENCOUNTER 2022-03-04 09:53 | Emergency (ER) | payer MEDICARE, SELFPAY ==
[2022-03-04 09:54] VITALS: BP 109/83; PULSE 101; RESP 15; TEMP 36.7; O2SAT 97; BMI 31.9
--- NOTE | 2022-03-04 10:05 | EKG12_ITS ---
Test Reason : Blood Pressure : / mmHG Vent. Rate : 097 BPM Atrial Rate : 097 BPM P-R Int : 142 ms QRS Dur : 084 ms QT Int : 344 ms P-R-T Axes : 058 005 045 degrees QTc Int : 436 ms Normal sinus rhythm Normal ECG Confirmed by ANDIE LOPEZ, NOEMI ([id number]), news videotape editor SHELLIE CERVANTES ([id number]) on 03/08/2022 1:33:30 PM Referred By: LUCRECIA Confirmed By:NOEMI CHAVES MD
--- NOTE | 2022-03-04 10:05 | RAD_ITS ---
STUDY: X-RAY CHEST REASON FOR EXAM: Female, 81 years old. Edema, dyspnea TECHNIQUE: Single AP portable view of the chest. COMPARISON: Comparison is made with prior study dated 02/09/2022. FINDINGS: EKG electrodes are seen. Mild degree of residual increased linear markings at the left lung base although there has been improvement. Minimal residual blunting of the left costophrenic angle. Normal size heart. Normal mediastinum and yelitza. Normal visualized pulmonary arteries. There is atherosclerotic calcification of the aortic arch with tortuosity. Normal visualized thoracic spine. Normal visualized ribs, clavicles, and shoulders. There is no demonstrated abnormality of the visualized soft tissue structures of the upper abdomen. RAD/Chest 1 View (Portable) IMPRESSION: Mild residual linear atelectasis at the left lung base although there has been improvement. Electronically Signed: Ryan Main MD at 11:21 EDT ,
[2022-03-04 10:25] LABS: Absolute Lymphocyte Count 1.89 X10^3/uL (0.83-4.51); Absolute Neutrophil Count 10.5 X10^3/uL (2.0-7.7); Basophil# 0.03 X10^3/uL; Basophil% 0.2 % (0-1); Eosinophils% 2.8 % (0-5); Hematocrit 27.8 % (37-47); Hemoglobin 8.4 g/dL (12.0-15.0); Lymphocyte # 1.89 X10^3/ul (0.83-4.51); Lymphocyte % 13.4 % (19-41); Mean Corp Hgb Conc 30.2 g/dL (32-36); Mean Corpuscular Hgb 28.5 pg (27.0-32.0); Mean Corpuscular Volume 94.2 fL (81-99); Mean Platelet Vol. 8.8 fl (6.2-12.0); Monocyte# 1.19 X10^3/uL; Monocyte% 8.4 % (0-10); NRBC Flagged by Analyzer 0 % (0-5); Neutrophil # 10.51 X10^3/uL (2.7-7.7); Neutrophil % 74.6 % (47-70); Platelet Count 458 K/mm3 (150-450); RBC Distribution Width CV 17.4 % (11.6-14.6); Red Blood Count 2.95 M/mm3 (4.2-5.4); White Blood Count 14.1 K/mm3 (4.4-11.0)
--- NOTE | 2022-03-04 10:31 | EDS_ITS ---
HPI <MAGEN Retana - Last Filed: 03/04/22 13:31> History of Present Illness Chief Complaint: Edema Narrative Narrative: 81-year-old patient with PMH of HTN, CKD, polymyalgia rheumatica presents with pain and swelling of both hands. She is a poor historian. She states she has had pain and swelling in her bilateral hands and lower legs for over 2 years. Her diagnoses list PMR but she does not know her medical history. She had been on prednisone for the last 2 years and has been weaning off and now takes 5 mg daily. She also takes Vicodin 3 times a day for the pain in her hands and generalized pain. A few days ago the pain in both hands became worse. She stopped taking her Lasix because she did not want to get up and use the restroom more and use her hands. She denies chest pain or shortness of breath. PFSH <MAGEN Retana - Last Filed: 03/04/22 13:31> PFS Medical History Acid reflux Anemia Asthma Benign paroxysmal positional vertigo Chronic kidney disease, stage 3 Essential hypertension GERD (gastroesophageal reflux disease) History of Palmer's esophagus History of malaria Iron deficiency anemia due to chronic blood loss Leukocytosis Lower back pain Lymphedema Polymyalgia rheumatica Pressure injury of left buttock, stage 2 Pressure injury of right buttock, stage 2 Pulmonary embolism Stage 3 chronic kidney disease Thrombocythemia Home Medications apixaban [Eliquis] 5 mg PO BID 05/14/21 [History Last Taken Unknown] hydrocodone-acetaminophen 2 tab PO Q8H PRN 05/14/21 [History Last Taken 11/05/21] albuterol sulfate 90 mcg/actuation aerosol inhaler 2 puff INHALATION Q6H PRN 08/03/21 [History Last Taken Unknown] pantoprazole 40 mg tablet,delayed release 40 mg PO DAILY 08/03/21 [History Last Taken 11/05/21] prednisone 5 mg tablet 5 mg PO DAILY 08/03/21 [History Last Taken 11/04/21] ascorbic acid (vitamin C) 500 mg PO DAILY 11/05/21 [History Last Taken 11/04/21] ferrous sulfate 325 mg PO DAILY 11/05/21 [History Last Taken 11/04/21] losartan 50 mg PO DAILY 11/05/21 [History Last Taken 11/05/21] polyethylene glycol 3350 [Miralax] 17 g PO DAILY 01/25/22 [History Last Taken Unknown] sennosides [senna] 8.6 mg PO DAILY 01/25/22 [History Last Taken Unknown] potassium 40 mg PO DAILY 02/09/22 [History Last Taken Unknown] furosemide 40 mg tablet 40 mg PO DAILY tab 02/15/22 [History Last Taken Unknown] ezetimibe [Zetia] 10 mg PO QHS 03/04/22 [History Last Taken Unknown] prednisone 20 mg PO DAILY 5 Days #5 tab 03/04/22 [Rx Last Taken Unknown] Allergy/AdvReac Type Severity Reaction Status Date / Time cefuroxime [From Ceftin] AdvReac Severe Itching Verified 02/15/22 14:11 Ivhmksd-WRZ-FrF Reductase AdvReac Severe Other Verified 02/15/22 14:11 Inhibitor [Yitzasl-Wdq-Ade Reductase Inhibitor] prochlorperazine AdvReac Intermediate Other Verified 02/15/22 14:11 [From Compazine] Family History Mother Cancer of eye Brother Heart disease Alzheimer disease Surgical History History of appendectomy Status post right foot surgery Social History Smoking Status: Never smoker second hand exposure: No alcohol intake: never substance use type: does not use deana/denominational: Restoration seatbelt use: always do you feel safe at home: Yes ROS <MAGEN Retana - Last Filed: 03/04/22 13:31> ROS ED ROS Narrative Constitutional: Negative for fever, chills, malaise. Eyes: Negative for visual change. ENT: Negative for sore throat, rhinorrhea. CVS: Negative for palpitations, chest pain, syncope. Respiratory: Negative for shortness of breath, cough, orthopnea. GI: Negative for abdominal pain, nausea, vomiting, diarrhea, constipation, melena, hematochezia. : Negative for dysuria, hematuria or frequency. Neuro: Negative for headache, motor/sensory dysfunction. Skin: Negative for rash, abscess, or wound. Musc: Positive for hand as needed, swelling. No trauma. Heme: Negative for easy bruising, bleeding, lymphadenopathy. EXAM <MAGEN Retana - Last Filed: 03/04/22 13:31> Physical Exam Narrative Exam Narrative: CONST: Patient sitting in no acute distress. EYES: Normal inspection. NECK: Normal inspection. RESP: No respiratory distress, CTAB. CVS: Regular rate and rhythm, no murmur, no gallop. ABD: Soft and nontender, no guarding or rebound, nondistended. Back: Normal inspection. SKIN: Color normal, no rash, warm, dry, intact. EXTREMITIES: Both hands diffusely have some soft tissue swelling and diffuse tenderness, no warmth or overlying skin changes. 2+ radial pulses and capillary refill less than 2 seconds. Also 2+ pitting edema NEURO: Oriented x4. PSYCH: Normal affect. Const Vital Signs: 03/04/22 09:54 03/04/22 09:58 03/04/22 13:41 Temperature 98.1 F Temperature Source Oral Pulse Rate 101 H 103 H Respiratory Rate 15 Respiratory Effort Normal Non-Labored Respiratory Pattern Normal Blood Pressure 109/83 H 127/55 H Blood Pressure Mean 91 Pulse Ox 97 99 Oxygen Delivery Method Room Air <Dr. Abilio Edmond DO - Last Filed: 03/04/22 15:48> Physical Exam Const Vital Signs: 03/04/22 09:54 03/04/22 09:58 03/04/22 13:41 Temperature 98.1 F Temperature Source Oral Pulse Rate 101 H 103 H Respiratory Rate 15 Respiratory Effort Normal Non-Labored Respiratory Pattern Normal Blood Pressure 109/83 H 127/55 H Blood Pressure Mean 91 Pulse Ox 97 99 Oxygen Delivery Method Room Air MDM <MAGEN Retana - Last Filed: 03/04/22 13:31> [facility] Narrative Medical decision making narrative: Patient presents with upper and lower extremity edema and pain in both hands. This is a chronic issue ongoing over 2 years likely from her PMH. She appears well and nontoxic. She does have some swelling and diffuse tenderness of both hands but states this has been an ongoing issue for over 2 years. There is no erythema or warmth and no evidence of infectious process on exam. Upper and lower extremities are neurovascularly intact. Vital signs unremarkable. Labs are all at baseline. She has leukocytosis at 14.1, hemoglobin is stable at 8.4. Electrolytes are unremarkable with normal renal function. BNP is 10. EKG is normal sinus rhythm with no ischemia. CXR is negative. Patient was given a dose of oxycodone here for her pain. I checked [facility] and she filled Vicodin 5/325 #180 which is a 30- day supply on February 12, 2022 so there is nothing additional I can prescribe. She has CKD so I will avoid NSAIDs. Since this is a likely flare of her chronic immune process/PMR she requested steroids. Right now she is on prednisone 5 mg once daily. She was given IV Solu-Medrol 125 and a prescription for prednisone 20 mg x 5 days and then she can go back to her chronic dose. We did discuss risks and benefits including fluid retention and hyperglycemia but she wants steroids. I recommended she take her Lasix as prescribed and patient will be discharged to follow-up with her physicians outpatient for this issue. Diagnoses 1. Bilateral upper and lower extremity peripheral edema 2. History of polymyalgia rheumatica 3. Bilateral hand pain Lab Data Labs: Laboratory Results - last 24 hr 03/04/22 03/04/22 03/04/22 10:15 10:15 10:15 WBC 14.1 H RBC 2.95 L Hgb 8.4 L Hct 27.8 L MCV 94.2 MCH 28.5 MCHC 30.2 L RDW Std Deviation 59.0 H RDW Coeff of Khalida 17.4 H Plt Count 458 H MPV 8.8 Immature Gran % (Auto) 0.600 Neut % (Auto) 74.6 H Lymph % (Auto) 13.4 L [place] % (Auto) 8.4 Eos % (Auto) 2.8 Baso % (Auto) 0.2 Absolute Neuts (auto) 10.5 H Absolute Lymphs (auto) 1.89 Nucleated RBC % 0 Sodium 139 Potassium 4.1 Chloride 107 Carbon Dioxide 26.0 Anion Gap 6 BUN 19 H Creatinine 0.72 Estim Creat Clear Calc 48.25 Est GFR (MDRD) Af Amer 100 Est GFR (MDRD) Non-Af 83 BUN/Creatinine Ratio 26.4 H Glucose 128 H Calcium 9.6 Total Bilirubin 0.30 AST 13 L ALT 21 Alkaline Phosphatase 71 B-Natriuretic Peptide 10.0 Total Protein 6.7 Albumin 3.0 L Globulin 3.7 Albumin/Globulin Ratio 0.8 L Radiography Chest X-Ray - ED: 1 View, Read by ED Physician, Read by Radiologist, Normal, Heart, Lungs, Mediastinum, Bony Structures and No Acute Disease Diagnostic Testing: Clinical Impression(s) from Imaging Studies Chest X-Ray 03/04/22 10:05 IMPRESSION: Mild residual linear atelectasis at the left lung base although there has been improvement. Electronically Signed: Ryan Main MD at 11:21 EDT , ED attending interpretation of 1 view chest shows normal heart size, no acute infiltrate edema or effusion. EKG Initial EKG: Attestation: I personally reviewed and interpreted this EKG as follows: Interpretation: Sinus Rhythm Comments: Normal sinus rhythm, normal intervals, no ST-T wave changes <Dr. Abilio Edmond, DO - Last Filed: 03/04/22 15:48> [facility] MDM Narrative Medical decision making narrative: Seen initially by physician phlebotomist medical lab assistant. Patient individually examined by myself and I agree with assessment, plan, work- up. This is a 81-year-old female presenting again for the second time in a month for lower extremity and upper extremity edema and pain in her hands. She states that she previously was diuresed with Lasix and had significant improvement in her lower extremity edema and her hand pain however she is acutely having more pain in her hands and stating she has had difficulty closing her hands which is similar to her previous presentation. She is on 5 mg of pred nisone chronic daily but states that typically when she is had flares of this she has placed on 5 days of prednisone 20 mg. Patient did have a work-up for the edema and her CBC shows slight leukocytosis of 14.1. Hemoglobin stable at 8.4. Platelets slightly elevated at 458. Renal function is normal. Electrolytes within normal limits. BNP is 10. EKG sinus rhythm without sign of ischemic change or dysrhythmia on my interpretation. Chest x-ray my interpretation shows no acute cardiopulmonary process and the radiologist agree. Patient work-up ultimately normal and she is requesting steroids for her pain. She is on [place] as well at her facility. Patient given 5-day supply of 20 mg p.o. daily at her request. She is counseled that this will increase her blood sugars and she may retain fluids and she is counseled to monitor her weights and increase her Lasix as needed. She will discuss physician who is caring for her. Patient does also states she knows how to do this herself with Lasix to keep the fluid off. I feel at this time the patient stable for discharge. Lab Data Attestation: I reviewed the patient's lab results. Labs: Laboratory Results - last 24 hr 03/04/22 03/04/22 03/04/22 10:15 10:15 10:15 WBC 14.1 H RBC 2.95 L Hgb 8.4 L Hct 27.8 L MCV 94.2 MCH 28.5 MCHC 30.2 L RDW Std Deviation 59.0 H RDW Coeff of [place] 17.4 H Plt Count 458 H MPV 8.8 Immature Gran % (Auto) 0.600 Neut % (Auto) 74.6 H Lymph % (Auto) 13.4 L [place] % (Auto) 8.4 Eos % (Auto) 2.8 Baso % (Auto) 0.2 Absolute Neuts (auto) 10.5 H Absolute Lymphs (auto) 1.89 Nucleated RBC % 0 Sodium 139 Potassium 4.1 Chloride 107 Carbon Dioxide 26.0 Anion Gap 6 BUN 19 H Creatinine 0.72 Estim Creat Clear Calc 48.25 Est GFR (MDRD) Af Amer 100 Est GFR (MDRD) Non-Af 83 BUN/Creatinine Ratio 26.4 H Glucose 128 H Calcium 9.6 Total Bilirubin 0.30 AST 13 L ALT 21 Alkaline Phosphatase 71 B-Natriuretic Peptide 10.0 Total Protein 6.7 Albumin 3.0 L Globulin 3.7 Albumin/Globulin Ratio 0.8 L Radiography Diagnostic Testing: Clinical Impression(s) from Imaging Studies Chest X-Ray 03/04/22 10:05 IMPRESSION: Mild residual linear atelectasis at the left lung base although there has been improvement. Electronically Signed: Ryan Main MD at 11:21 EDT , Discharge Plan Triage Chief Complaint: Edema ED Provider: Mercy Bethea Dx/Rx/DC Orders Clinical Impression: Edema, peripheral Instructions: Taking a Diuretic Prescriptions: New prednisone 20 mg tablet 20 mg PO DAILY 5 Days Qty: 5 RF: 0 No Action pantoprazole 40 mg tablet,delayed release (DR/EC) 40 mg PO DAILY RF: 0 prednisone 5 mg tablet 5 mg PO DAILY RF: 0 albuterol sulfate [Ventolin HFA] 90 mcg/actuation HFA aerosol inhaler 2 puff inhalation Q6H PRN (Reason: SOB) RF: 0 hydrocodone-acetaminophen 5-325 mg Tablet 2 tab PO Q8H PRN (Reason: Pain) RF: 0 Eliquis 2.5 mg Tablet 5 mg PO BID RF: 0 furosemide [Lasix] 40 mg tablet 40 mg PO DAILY RF: 0 sennosides [senna] 8.6 mg Tablet 8.6 mg PO DAILY RF: 0 polyethylene glycol 3350 [Miralax] 17 gram Powder In Packet 17 g PO DAILY RF: 0 losartan 50 mg tablet 50 mg PO DAILY RF: 0 ascorbic acid (vitamin C) 500 mg Tablet 500 mg PO DAILY RF: 0 ferrous sulfate 325 mg (65 mg iron) Tablet 325 mg PO DAILY RF: 0 potassium 20 mg Tablet,Chewable 40 mg PO DAILY RF: 0 ezetimibe [Zetia] 10 mg Tablet 10 mg PO QHS RF: 0 Primary Care Provider: Leidy Santiago Referrals: Leidy Santiago MD [Primary Care Provider] - Activity Restrictions/Additional Instructions: The pain in your hands and feet is a chronic issue. You need to take the Vicodin you have prescribed at home and follow-up with your doctor and whoever is prescribing her pain medication. You also need to take your Lasix or your swelling will get worse. Disposition Disposition: Home, Self Care Discharge Date/Time: 03/04/22 14:16
[2022-03-04] MEDS: oxyCODONE 5 MG Tablet PO (10:39)
[2022-03-04 11:21] LABS: ALB/GLOB Ratio 0.8 RATIO (0.9-2.4); AST(SGOT) 13 U/L (15-37); Alanine Aminotransfer ALT/SGPT 21 U/L (13-56); Alkaline Phosphatase 71 U/L (45-117); Anion Gap 6 (5-15); BUN 19 mg/dL (7-18); BUN/Creat Ratio 26.4 RATIO (10-20); Calcium,Total 9.6 mg/dL (8.5-10.1); Chloride 107 mmol/L (98-107); Creatinine, Serum 0.72 mg/dL (0.55-1.02); EST Glomerular Filtration Rate 83 mL/min (>60); Est Glom Filt Rate - Afr Amer 100 mL/min (>60); Estimated Creatinine Clearance 48.25 ml/min; Globulin 3.7 g/dL (2.2-4.2); Glucose 128 mg/dL (74-106); Potassium 4.1 mmol/L (3.5-5.1); Protein, Total 6.7 g/dL (6.4-8.2); Sodium Level 139 mmol/L (136-145)
[2022-03-04] MEDS: MethylPREDNISolone 125 MG/2 ML Vial IV (13:39)
[2022-03-04 13:41] VITALS: BP 127/55; PULSE 103; O2SAT 99
== END 2022-03-04 14:16 | disposition home or self-care (01) ==
PROVIDERS: Emergency Provider Physician Assistant; PCP Internal Medicine; Visit Provider Physician Assistant
DX: R60.0 Localized edema (principal); M35.3 Polymyalgia rheumatica; N18.30 Chronic kidney disease, stage 3 unspecified; I12.9 Hypertensive chronic kidney disease with stage 1 through stage 4 chronic kidney disease, or unspecified chronic kidney disease; M79.641 Pain in right hand; M79.642 Pain in left hand; D63.1 Anemia in chronic kidney disease; K21.9 Gastro-esophageal reflux disease without esophagitis; R06.00 Dyspnea, unspecified; Z79.01 Long term (current) use of anticoagulants; Z79.899 Other long term (current) drug therapy
CPT/HCPCS: 71045; 80053; 83880; 85025; 93005; 96374; 99284; A4216

== ENCOUNTER → 2022-03-26 | Outpatient (REF) | payer MEDICARE, SELFPAY ==
[2022-03-26 09:14] LABS: Hematocrit 32.9 % (37-47); Hemoglobin 9.6 g/dL (12.0-15.0); Mean Corp Hgb Conc 29.2 g/dL (32-36); Mean Corpuscular Hgb 28.7 pg (27.0-32.0); Mean Corpuscular Volume 98.2 fL (81-99); POSITIVE MORPHOLOGY YES; Platelet Count 413 K/mm3 (150-450); RBC Distribution Width CV 19.2 % (11.6-14.6); RBC Distribution Width SD 69.2 fl (35.1-43.9); Red Blood Count 3.35 M/mm3 (4.2-5.4); White Blood Count 9.7 K/mm3 (4.4-11.0)
[2022-03-26 09:23] LABS: Anion Gap 6 (5-15); BUN 30 mg/dL (7-18); BUN/Creat Ratio 33.8 RATIO (10-20); Calcium,Total 9.7 mg/dL (8.5-10.1); Chloride 102 mmol/L (98-107); Creatinine, Serum 0.89 mg/dL (0.55-1.02); EST Glomerular Filtration Rate 65 mL/min (>60); Est Glom Filt Rate - Afr Amer 79 mL/min (>60); Glucose 102 mg/dL (74-106); Potassium 3.4 mmol/L (3.5-5.1); Sodium Level 140 mmol/L (136-145)
[2022-03-26 10:16] LABS: Scan Indicated on CBC? Y/N YES- FLAGS NOTED
== END | disposition home or self-care (01) ==
LOC: OLS.SWAL 05:00
PROVIDERS: PCP Internal Medicine; Visit Provider Internal Medicine
DX: D64.9 Anemia, unspecified (principal)
CPT/HCPCS: 36415; 80048; 85027

== ENCOUNTER → 2022-03-27 | Outpatient (REF) | payer MEDICARE, SELFPAY | END | disposition home or self-care (01) | LOC: OLS.SWAL 12:00 | PROVIDERS: PCP Internal Medicine; Visit Provider Internal Medicine | DX: B00.9 Herpesviral infection, unspecified (principal) | CPT/HCPCS: 87252 ==

== ENCOUNTER → 2022-04-23 | Outpatient (REF) | payer MEDICARE, BC, SELFPAY ==
[2022-04-23 07:45] LABS: Hematocrit 34.9 % (37-47); Hemoglobin 10.5 g/dL (12.0-15.0); Mean Corp Hgb Conc 30.1 g/dL (32-36); Mean Corpuscular Volume 96.4 fL (81-99); Mean Platelet Vol. 9.9 fl (6.2-12.0); Platelet Count 456 K/mm3 (150-450); RBC Distribution Width CV 16.2 % (11.6-14.6); Red Blood Count 3.62 M/mm3 (4.2-5.4); White Blood Count 12.7 K/mm3 (4.4-11.0)
[2022-04-23 08:21] LABS: Anion Gap 8 (5-15); BUN 50 mg/dL (7-18); BUN/Creat Ratio 54.9 RATIO (10-20); Calcium,Total 9.5 mg/dL (8.5-10.1); Chloride 100 mmol/L (98-107); Creatinine, Serum 0.91 mg/dL (0.55-1.02); EST Glomerular Filtration Rate 63 mL/min (>60); Est Glom Filt Rate - Afr Amer 76 mL/min (>60); Glucose 133 mg/dL (74-106); Potassium 3.3 mmol/L (3.5-5.1); Sodium Level 138 mmol/L (136-145)
== END | disposition home or self-care (01) ==
LOC: OLS.SWAL 05:00
PROVIDERS: PCP Internal Medicine; Visit Provider Internal Medicine
DX: D64.9 Anemia, unspecified (principal)
CPT/HCPCS: 36415; 80048; 85027

== ENCOUNTER → 2022-05-14 | Outpatient (CLI) | payer MEDICARE, SELFPAY ==
[2022-05-14 12:27] LABS: Anion Gap 5 (5-15); BUN 36 mg/dL (7-18); BUN/Creat Ratio 40.4 RATIO (10-20); Calcium,Total 9.7 mg/dL (8.5-10.1); Chloride 105 mmol/L (98-107); Cholesterol 149 mg/dL (200); Creatinine, Serum 0.89 mg/dL (0.55-1.02); EST Glomerular Filtration Rate 65 mL/min (>60); Est Glom Filt Rate - Afr Amer 78 mL/min (>60); Glucose 118 mg/dL (74-106); High Density Lipoprotein 40 mg/dL; Potassium 5.4 mmol/L (3.5-5.1); Sodium Level 133 mmol/L (136-145); Triglycerides 115 mg/dL; Very Low Density Lipoprotein 23 mg/dL (5-40)
== END | disposition home or self-care (01) ==
LOC: MFPLAB 11:03
PROVIDERS: PCP Family Medicine; Referring Provider Family Medicine; Visit Provider Family Medicine
DX: I10 Essential (primary) hypertension (principal)
CPT/HCPCS: 36415; 80048; 80061

== ENCOUNTER → 2022-05-21 | Outpatient (REF) | payer MEDICARE, SELFPAY ==
[2022-05-21 08:16] LABS: Hematocrit 25.4 % (37-47); Hemoglobin 7.2 g/dL (12.0-15.0); Mean Corp Hgb Conc 28.3 g/dL (32-36); Mean Corpuscular Hgb 27.1 pg (27.0-32.0); Mean Corpuscular Volume 95.5 fL (81-99); Platelet Count 711 K/mm3 (150-450); RBC Distribution Width CV 15.4 % (11.6-14.6); Red Blood Count 2.66 M/mm3 (4.2-5.4); White Blood Count 9.8 K/mm3 (4.4-11.0)
[2022-05-21 08:48] LABS: Anion Gap 8 (5-15); BUN 43 mg/dL (7-18); BUN/Creat Ratio 41.7 RATIO (10-20); Calcium,Total 9.6 mg/dL (8.5-10.1); Chloride 101 mmol/L (98-107); Creatinine, Serum 1.03 mg/dL (0.55-1.02); EST Glomerular Filtration Rate 55 mL/min (>60); Est Glom Filt Rate - Afr Amer 66 mL/min (>60); Glucose 162 mg/dL (74-106); Potassium 3.7 mmol/L (3.5-5.1); Sodium Level 135 mmol/L (136-145)
== END | disposition home or self-care (01) ==
LOC: OLS.SWAL 05:00
PROVIDERS: PCP Family Medicine; Visit Provider Family Medicine
DX: N18.30 Chronic kidney disease, stage 3 unspecified (principal); D64.9 Anemia, unspecified
CPT/HCPCS: 36415; 80048; 85027

== ENCOUNTER → 2022-05-25 | Outpatient (REF) | payer MEDICARE, SELFPAY ==
[2022-05-25 09:05] LABS: Absolute Lymphocyte Count 1.13 X10^3/uL (0.83-4.51); Absolute Neutrophil Count 12.5 X10^3/uL (2.0-7.7); Basophil# 0.03 X10^3/uL; Basophil% 0.2 % (0-1); Hematocrit 26.2 % (37-47); Hemoglobin 7.4 g/dL (12.0-15.0); Lymphocyte # 1.13 X10^3/ul (0.83-4.51); Lymphocyte % 7.9 % (19-41); Mean Corp Hgb Conc 28.2 g/dL (32-36); Mean Corpuscular Hgb 26.7 pg (27.0-32.0); Mean Corpuscular Volume 94.6 fL (81-99); Mean Platelet Vol. 9.4 fl (6.2-12.0); Monocyte# 0.59 X10^3/uL; Monocyte% 4.1 % (0-10); NRBC Flagged by Analyzer 0 % (0-5); Neutrophil # 12.53 X10^3/uL (2.7-7.7); Neutrophil % 87.1 % (47-70); Platelet Count 661 K/mm3 (150-450); RBC Distribution Width CV 15.6 % (11.6-14.6); RBC Distribution Width SD 54.3 fl (35.1-43.9); Red Blood Count 2.77 M/mm3 (4.2-5.4); White Blood Count 14.4 K/mm3 (4.4-11.0)
== END | disposition home or self-care (01) ==
LOC: OLS.SWAL 05:00
PROVIDERS: PCP Family Medicine; Visit Provider Family Medicine
DX: K21.9 Gastro-esophageal reflux disease without esophagitis (principal)
CPT/HCPCS: 36415; 85025

== ENCOUNTER → 2022-05-28 | Outpatient (REF) | payer MEDICARE, SELFPAY ==
[2022-05-28 09:03] LABS: Absolute Lymphocyte Count 1.19 X10^3/uL (0.83-4.51); Absolute Neutrophil Count 11.4 X10^3/uL (2.0-7.7); Basophil# 0.02 X10^3/uL; Basophil% 0.1 % (0-1); Eosinophil# 0.01 X10^3/uL; Eosinophils% 0.1 % (0-5); Hematocrit 27.2 % (37-47); Hemoglobin 8.1 g/dL (12.0-15.0); Lymphocyte # 1.19 X10^3/ul (0.83-4.51); Lymphocyte % 8.9 % (19-41); Mean Corp Hgb Conc 29.8 g/dL (32-36); Mean Corpuscular Hgb 27.3 pg (27.0-32.0); Mean Corpuscular Volume 91.6 fL (81-99); Mean Platelet Vol. 9.5 fl (6.2-12.0); Monocyte# 0.69 X10^3/uL; Monocyte% 5.1 % (0-10); NRBC Flagged by Analyzer 0 % (0-5); Neutrophil # 11.44 X10^3/uL (2.7-7.7); Neutrophil % 85.2 % (47-70); Platelet Count 644 K/mm3 (150-450); RBC Distribution Width CV 15.9 % (11.6-14.6); RBC Distribution Width SD 52.3 fl (35.1-43.9); Red Blood Count 2.97 M/mm3 (4.2-5.4); White Blood Count 13.4 K/mm3 (4.4-11.0)
[2022-05-28 09:38] LABS: Vitamin B12 920 pg/mL (211-911)
[2022-05-28 10:32] LABS: Ferritin 42 ng/mL (8-252); Iron 43 ug/dL (50-170); Iron Binding Capacity,Total 352 ug/dL (250-450); PERCENT IRON SATURATION 12.2 % (15.0-55.0)
[2022-05-31 10:46] LABS: Transferrin 301 mg/dL (192-364)
== END | disposition home or self-care (01) ==
LOC: OLS.SWAL 05:00
PROVIDERS: PCP Family Medicine; Visit Provider Family Medicine
DX: D64.9 Anemia, unspecified (principal)
CPT/HCPCS: 36415; 82607; 82728; 82746; 83540; 83550; 84466; 85025

== ENCOUNTER → 2022-06-02 | Outpatient (REF) | payer MEDICARE, SELFPAY ==
[2022-06-02 09:58] LABS: Hematocrit 29.2 % (37-47); Hemoglobin 8.5 g/dL (12.0-15.0); Mean Corp Hgb Conc 29.1 g/dL (32-36); Mean Corpuscular Hgb 27.5 pg (27.0-32.0); Mean Corpuscular Volume 94.5 fL (81-99); Mean Platelet Vol. 10.1 fl (6.2-12.0); Platelet Count 504 K/mm3 (150-450); RBC Distribution Width CV 17.5 % (11.6-14.6); RBC Distribution Width SD 60.4 fl (35.1-43.9); Red Blood Count 3.09 M/mm3 (4.2-5.4); White Blood Count 12.1 K/mm3 (4.4-11.0)
== END ==
LOC: OLS.SWAL 04:00
PROVIDERS: PCP Family Medicine; Referring Provider Family Medicine; Visit Provider Family Medicine
DX: D64.9 Anemia, unspecified (principal)
CPT/HCPCS: 36415; 85027

== ENCOUNTER → 2022-08-12 | Outpatient (REF) | payer MEDICARE, SELFPAY ==
[2022-08-12 09:20] LABS: Absolute Lymphocyte Count 1.16 X10^3/uL (0.83-4.51); Absolute Neutrophil Count 8.6 X10^3/uL (2.0-7.7); Basophil# 0.01 X10^3/uL; Basophil% 0.1 % (0-1); Hematocrit 39.5 % (37-47); Hemoglobin 11.9 g/dL (12.0-15.0); Lymphocyte # 1.16 X10^3/ul (0.83-4.51); Lymphocyte % 11.4 % (19-41); Mean Corp Hgb Conc 30.1 g/dL (32-36); Mean Corpuscular Hgb 29.8 pg (27.0-32.0); Mean Corpuscular Volume 98.8 fL (81-99); Mean Platelet Vol. 10.5 fl (6.2-12.0); Monocyte# 0.38 X10^3/uL; Monocyte% 3.7 % (0-10); NRBC Flagged by Analyzer 0 % (0-5); Neutrophil % 84.2 % (47-70); Platelet Count 360 K/mm3 (150-450); RBC Distribution Width CV 17.2 % (11.6-14.6); RBC Distribution Width SD 63.1 fl (35.1-43.9); White Blood Count 10.2 K/mm3 (4.4-11.0)
[2022-08-12 09:36] LABS: Ferritin 360 ng/mL (8-252); Iron 59 ug/dL (50-170); Iron Binding Capacity,Total 290 ug/dL (250-450); PERCENT IRON SATURATION 20.3 % (15.0-55.0)
== END ==
LOC: OLS.SWAL 07:30
PROVIDERS: PCP Family Medicine; Visit Provider Internal Medicine Hematology & Oncology
DX: D50.0 Iron deficiency anemia secondary to blood loss (chronic) (principal)
CPT/HCPCS: 36415; 82728; 83540; 83550; 85025

== ENCOUNTER → 2022-11-25 | Outpatient (CLI) | payer MEDICARE, SELFPAY ==
--- NOTE | 2022-11-25 13:15 | BI_ITS ---
MAMMOGRAPHY - BILATERAL SCREENING REASON FOR EXAM: Female, 82 years old. Routine annual screening examination. PERTINENT HISTORY: Non-contributory. TECHNIQUE: Digital bilateral breast issac (3D mammographic acquisition) in the CC and MLO projections. 2-D mediolateral oblique (MLO) and craniocaudad (CC) views of both breasts were obtained. CAD: Full Field Digital Mammography with Computer Added Detection was performed. COMPARISON: Comparison is made with prior outside examination dated 05/25/2017. FINDINGS: Breast Composition: The breasts are almost entirely fatty. There are no dominant masses or suspicious calcifications. No other significant abnormalities are identified. There has been no significant change since the prior study. BI/SCRN MAMM (CAD)W/ISSAC BILAT IMPRESSION: Stable bilateral screening mammogram. Yearly follow-up mammogram recommended. (A) ASSESSMENT CATEGORY: BIRADS Category 1: Negative. A letter regarding these results will be sent to the patient by the facility within 30 days. Approximately 10% of breast cancers are not detected by mammography. A normal mammogram should not delay biopsy of a clinically suspicious abnormality. [id number] Electronically Signed: Ryan Main MD at 14:53 EST ,
== END | disposition home or self-care (01) ==
PROVIDERS: PCP Family Medicine; Visit Provider Internal Medicine Hematology & Oncology
DX: Z12.31 Encounter for screening mammogram for malignant neoplasm of breast (principal)
CPT/HCPCS: 77063; 77067

== ENCOUNTER → 2023-03-31 | Outpatient (CLI) | payer MEDICARE, SELFPAY ==
--- NOTE | 2023-03-31 09:07 | RAD_ITS ---
STUDY: X-RAY CHEST REASON FOR EXAM: Female, 82 years old. Shortness of breath. TECHNIQUE: Frontal and lateral views of the chest on 3 images. COMPARISON: February 2022. FINDINGS: Hyperinflation and hyperlucency, unchanged. Linear atelectatic opacities or scarring at both bases which has slightly increased since the prior study. Stable cardiomegaly with aortic tortuosity and calcification. Thoracic osteopenia with anterior wedge compression deformity of lower thoracic vertebral bodies and kyphoplasty changes in the lower thoracic and upper lumbar spine, new since the prior study. . No abnormality of the visualized soft tissue structures of the upper abdomen. RAD/Chest PA and Lateral IMPRESSION: Cardiomegaly with hyperlucency and increased atelectasis/scarring at both bases. Thoracic osteopenia with anterior wedge compression deformities of at least 2 lower thoracic vertebral bodies and kyphoplasty changes, all new since the prior study. Electronically Signed: Jered Willett MD at 11:13 EDT ,
[2023-03-31 10:40] LABS: Absolute Lymphocyte Count 1.05 X10^3/uL (0.83-4.51); Absolute Neutrophil Count 9.1 X10^3/uL (2.0-7.7); Basophil# 0.01 X10^3/uL; Basophil% 0.1 % (0-1); Hematocrit 39.4 % (37-47); Hemoglobin 12.2 g/dL (12.0-15.0); Lymphocyte # 1.05 X10^3/ul (0.83-4.51); Lymphocyte % 9.7 % (19-41); Mean Platelet Vol. 9.7 fl (6.2-12.0); Monocyte# 0.59 X10^3/uL; Monocyte% 5.4 % (0-10); NRBC Flagged by Analyzer 0 % (0-5); Neutrophil # 9.13 X10^3/uL (2.7-7.7); Neutrophil % 84.3 % (47-70); Platelet Count 353 K/mm3 (150-450); RBC Distribution Width CV 15.2 % (11.6-14.6); RBC Distribution Width SD 56.3 fl (35.1-43.9); Red Blood Count 3.94 M/mm3 (4.2-5.4); White Blood Count 10.8 K/mm3 (4.4-11.0)
[2023-03-31 10:55] LABS: D-Dimer Quantitative (DVT/PE) 2.57 FEU/ug/m (0.27-0.49)
[2023-03-31 11:03] LABS: Anion Gap 10 (5-15); BUN 24 mg/dL (7-18); BUN/Creat Ratio 31.1 RATIO (10-20); Calcium,Total 9.3 mg/dL (8.5-10.1); Chloride 105 mmol/L (98-107); Creatinine, Serum 0.77 mg/dL (0.55-1.02); EST Glomerular Filtration Rate 76 mL/min (>60); Est Glom Filt Rate - Afr Amer 92 mL/min (>60); Glucose 149 mg/dL (74-106); Potassium 3.2 mmol/L (3.5-5.1); Sodium Level 140 mmol/L (136-145)
== END | disposition home or self-care (01) ==
PROVIDERS: PCP Family Medicine; Referring Provider Family Medicine; Visit Provider Family Medicine
DX: R06.02 Shortness of breath (principal); M54.9 Dorsalgia, unspecified
CPT/HCPCS: 71046; 80048; 85025; 85379

== ENCOUNTER → 2023-03-31 | Outpatient (CLI) | payer MEDICARE, SELFPAY ==
--- NOTE | 2023-03-31 13:49 | CT_ITS ---
STUDY: CTA CHEST, ABDOMEN T PELVIS WITH CONTRAST REASON FOR EXAM: Female, 82 years old. Shortness of breath. History of leukocytosis. RADIATION DOSAGE (If Supplied By Facility): CTDIvol = ( 12.96 ) mGy, DLP = ( 1232.98 ) mGycm TECHNIQUE: Transaxial imaging was performed following intravenous administration of IV 100mL Isovue-370. Multiplanar coronal and sagittal images were reformatted. Individualized dose optimization techniques were used for this CT. COMPARISON: Comparison made with prior study dated November 05, 2021. FINDINGS: CHEST Increased markings at the lung bases suggestive of scarring and/or atelectasis is more prominent in the left lower lobe. There is no demonstrated pleural abnormality. There are calcifications of the coronary arteries. Normal mediastinum. Normal hilar regions. There is evidence of a intraluminal filling defects in the right interlobar pulmonary artery with extension into branches of the right lower lobe pulmonary artery. This is in keeping with a pulmonary embolus. Tiny intraluminal filling defects are seen in the proximal branches of the left upper lobe pulmonary artery as well. Normal aorta arch and descending thoracic aorta. There are multi-level degenerative changes of the thoracic spine. Old compression fractures of the L1 and L2 vertebrae with kyphoplasty. Mild degree of the loss of height of the superior endplate of the T12 vertebrae. Fatty attrition of the liver. ABDOMEN There is a 2.7 cm x 2.4 cm cyst in the inferior aspect of the right lobe of the liver. This also evidence of a 1.4 cm cyst in the region of the caudate lobe of the liver. Normal gallbladder and extrahepatic biliary system. Normal spleen. There is a 3.5 cm x 3.6 cm complex cystic mass in the uncinate process of the pancreas and head of the pancreas. A pancreatic neoplasm should be ruled out. Normal bilateral adrenal glands. Normal right kidney. 1 cm cyst in the lower pole of the left kidney. There is a moderate-sized hiatal hernia. Normal small intestine. There are multiple colonic diverticula consistent with diverticulosis. There is non-visualization of the appendix. There is diffuse atherosclerotic calcification of the abdominal aorta, without a demonstrated aneurysm. Normal inferior vena cava. Normal retroperitoneum. Normal abdominal wall. There are diffuse degenerative changes of the visualized lumbar spine. Prior vertebroplasty of the L1 and L2 vertebrae. PELVIS Distended urinary bladder. Cystocele. Normal visualized small intestine. Normal visualized colon. There is no pelvic fluid. There is no pelvic lymphadenopathy or mass lesion. There is diffuse atherosclerotic calcification of the pelvic arteries. CT/CTA Chst, Abd, Pel W and/or WO IMPRESSION: Bilateral pulmonary emboli as described. 3.5 cm x 3.6 cm complex cystic mass in the uncinate process and head portion of the pancreas. A neoplastic process should be ruled out. Electronically Signed: Ryan Main MD at 15:30 EDT ,
== END | disposition home or self-care (01) ==
PROVIDERS: PCP Family Medicine; Referring Provider Family Medicine; Visit Provider Family Medicine
DX: R06.02 Shortness of breath (principal); M54.9 Dorsalgia, unspecified
CPT/HCPCS: 36415; 71046; 71275; 74174; 80048; 85025; 85379; Q9967

== ENCOUNTER → 2023-05-25 | Outpatient (REF) | payer MEDICARE, SELFPAY ==
[2023-05-25 09:06] LABS: Hematocrit 24.2 % (37-47); Hemoglobin 7.1 g/dL (12.0-15.0); Mean Corp Hgb Conc 29.3 g/dL (32-36); Mean Corpuscular Hgb 27.2 pg (27.0-32.0); Mean Corpuscular Volume 92.7 fL (81-99); Mean Platelet Vol. 9.2 fl (6.2-12.0); Platelet Count 489 K/mm3 (150-450); RBC Distribution Width CV 15.4 % (11.6-14.6); RBC Distribution Width SD 52.6 fl (35.1-43.9); Red Blood Count 2.61 M/mm3 (4.2-5.4); White Blood Count 10.6 K/mm3 (4.4-11.0)
== END ==
LOC: OLS.SWAL 05:00
PROVIDERS: PCP Family Medicine; Visit Provider Family Medicine
DX: D64.9 Anemia, unspecified (principal)
CPT/HCPCS: 36415; 85027

== ENCOUNTER → 2023-06-02 | Outpatient (REF) | payer MEDICARE, MEDICAID, SELFPAY ==
[2023-06-02 09:33] LABS: Hematocrit 32.6 % (37-47); Hemoglobin 9.2 g/dL (12.0-15.0); Mean Corp Hgb Conc 28.2 g/dL (32-36); Mean Corpuscular Hgb 29.3 pg (27.0-32.0); Mean Corpuscular Volume 103.8 fL (81-99); Mean Platelet Vol. 9.8 fl (6.2-12.0); POSITIVE MORPHOLOGY YES; Platelet Count 377 K/mm3 (150-450); RBC Distribution Width CV 20.6 % (11.6-14.6); RBC Distribution Width SD 77.7 fl (35.1-43.9); Red Blood Count 3.14 M/mm3 (4.2-5.4); White Blood Count 10.5 K/mm3 (4.4-11.0)
[2023-06-02 09:36] LABS: Scan Indicated on CBC? Y/N YES- FLAGS NOTED
== END ==
LOC: OLS.SWAL 04:00
PROVIDERS: PCP Family Medicine; Referring Provider Family Medicine; Visit Provider Family Medicine
DX: D64.9 Anemia, unspecified (principal)
CPT/HCPCS: 36415; 85027

== ENCOUNTER 2023-09-06 17:48 | Emergency (ER) | payer MEDICARE, MEDICAID, SELFPAY ==
[2023-09-06 17:50] VITALS: BP 131/79; PULSE 93; RESP 18; TEMP 36.7; O2SAT 93; BMI 29.7
--- NOTE | 2023-09-06 18:06 | CT_ITS ---
EXAM: CT ABDOMEN AND PELVIS WITH INTRAVENOUS CONTRAST CLINICAL INDICATION: abdominal pain TECHNIQUE: Helically acquired images were obtained of the abdomen and pelvis with intravenous contrast. This CT exam was performed using one or more of the following dose reduction techniques: automated exposure control, adjustment of the mA and/or kV according to patient size, and/or use of iterative reconstruction technique. CONTRAST: IV 100mL Isovue-370 COMPARISON: 02/09/2022 FINDINGS: LOWER THORAX: There is minimal atelectasis in the lung bases. There is a small hiatal hernia present. No cardiomegaly. No significant pericardial effusion. ABDOMEN: LIVER: There is a simple cyst in the right lobe of the liver which is stable. GALLBLADDER AND BILE DUCTS: Unremarkable. No calcified gallstones. No gallbladder distention or wall edema. No intra- or extrahepatic biliary ductal dilation. PANCREAS: There is a cystic mass again present in the head of the pancreas that measures 4.2 x 3.4 x 5.0 cm. SPLEEN: Unremarkable. Normal size without focal cystic or solid mass. ADRENALS: Unremarkable. No nodules. KIDNEYS AND URETERS: There are nonobstructing calyceal stones in both kidneys. Normal renal size and position. STOMACH AND BOWEL: Unremarkable. No stomach or bowel distention. No focal inflammatory change. PELVIS: APPENDIX: No evidence of acute appendicitis. BLADDER: Unremarkable. REPRODUCTIVE: Unremarkable as visualized. No mass. ABDOMEN and PELVIS: INTRAPERITONEAL SPACE: Unremarkable. No ascites or other fluid collection. No free air. BONES/JOINTS: The orthopedic cement seen within the L1-L3 vertebral bodies from previous kyphoplasty. Chronic compression deformity of L4 which is stable. There is hardware across an old right hip fracture. No suspicious lytic or blastic abnormality. SOFT TISSUES: Unremarkable. No discrete abdominal or pelvic wall hernia. VASCULATURE: Unremarkable. Abdominal aorta is non-dilated. LYMPH NODES: Unremarkable. No enlarged lymph nodes. CT/Abdomen/Pelvis W IV Cont ONLY IMPRESSION: 1. 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 There are simple cyst is also present within the liver which are stable. 2. Minimal atelectasis or early pneumonia at the lung bases. No other acute abnormalities in the abdomen or pelvis. Electronically Signed: Ephraim Grace MD at 19:11 EST ,
--- NOTE | 2023-09-06 18:10 | EX.ED.DYSGE1 ---
HPI <MAGEN Retana - Last Filed: 09/06/23 19:29> History of Present Illness Chief Complaint: Abd Pain Narrative Narrative: 83-year-old patient with PMH of HTN, CKD, polymyalgia rheumatica presents for evaluation of her chronic abdominal pain. She states she has had an umbilical hernia for the last 3 years or so. States she has abdominal pain almost every day and usually pushes on the area to keep it in. She denies having seen a surgeon. Today when talking to her friend at her assisted living facility they recommended she be seen in the ED. She did vomit once today after drinking a protein shake, but otherwise has had normal p.o. intake recently. Has a loose nonbloody bowel movement daily and no urinary symptoms. She has had an appendectomy. When I inquired about a prior CT showing a pancreatic mass she states she had a biopsy by a specialist and was told it was not cancerous. PFSH <MAGEN Retana - Last Filed: 09/06/23 19:29> [facility] Medical History Acid reflux Anemia Asthma Benign paroxysmal positional vertigo Cataract Chronic kidney disease, stage 3 Essential hypertension GERD (gastroesophageal reflux disease) History of Palmer's esophagus History of malaria Iron deficiency anemia due to chronic blood loss Leukocytosis Lower back pain Lymphedema Polymyalgia rheumatica Pressure injury of left buttock, stage 2 Pressure injury of right buttock, stage 2 Pulmonary embolism Stage 3 chronic kidney disease Thrombocythemia Home Medications albuterol sulfate 90 mcg/actuation aerosol inhaler (Ventolin HFA) 2 puff inhalation Q6H PRN SOB 08/03/21 [History Last Taken Unknown] pantoprazole 40 mg tablet,delayed release 40 mg PO DAILY 08/03/21 [History Last Taken 11/05/21] ascorbic acid (vitamin C) 500 mg tablet 500 mg PO DAILY 11/05/21 [History Last Taken 11/04/21] losartan 50 mg tablet 50 mg PO DAILY BP 11/05/21 [History Last Taken 11/05/21] polyethylene glycol 3350 17 gram oral powder packet (Miralax) 17 g PO DAILY 01/25/22 [History Last Taken Unknown] sennosides 8.6 mg tablet (senna) 8.6 mg PO DAILY 01/25/22 [History Last Taken Unknown] prednisone 20 mg tablet 20 mg PO DAILY 5 days #5 tabs 03/04/22 [Rx Last Taken Unknown] agbxlmgc-fisj-ixcp 8 mg-folic 400 mcg-K 50 mcg-lutein 300 mcg tablet (Centrum Silver Women) 1 tab PO DAILY 03/31/22 [History Last Taken Unknown] furosemide 20 mg tablet 20 mg PO DAILY 05/27/22 [History Last Taken Unknown] potassium chloride 40 mEq/15 mL oral liquid 40 meq PO DAILY 05/27/22 [History Last Taken Unknown] apixaban 5 mg tablet (Eliquis) 5 mg PO BID 05/18/23 [History Last Taken Unknown] tramadol 50 mg tablet 50 mg PO BID PRN pain 05/18/23 [History Last Taken Unknown] Allergy/AdvReac Type Severity Reaction Status Date / Time cefuroxime [From Ceftin] AdvReac Severe Itching Verified 09/06/23 17:52 Fwqjuhc-ZBN-KhI Reductase AdvReac Severe Other Verified 09/06/23 17:52 Inhibitor [Uvexdcy-Dgd-Igy Reductase Inhibitor] prochlorperazine AdvReac Intermediate Other Verified 09/06/23 17:52 [From Compazine] Family History Mother Cancer of eye Brother Heart disease Alzheimer disease Son COVID-19 Surgical History History of appendectomy History of cataract surgery Status post right foot surgery Social History Smoking Status: Never smoker second hand exposure: No alcohol intake: never substance use type: does not use deana/denominational: Mandaen seatbelt use: always do you feel safe at home: Yes ROS <MAGEN Retana - Last Filed: 09/06/23 19:29> ROS ED ROS Narrative Constitutional: Negative for fever, chills, malaise. CVS: Negative for chest pain. Respiratory: Negative for shortness of breath. GI: Positive for abdominal pain, nausea, vomiting. Negative for constipation, melena, hematochezia. : Negative for dysuria, hematuria or frequency. EXAM <MAGEN Retana - Last Filed: 09/06/23 19:29> Physical Exam Narrative Exam Narrative: CONST: Patient sitting in no acute distress. EYES: Normal inspection. NECK: Normal inspection. RESP: No respiratory distress, CTAB. CVS: Regular rate and rhythm, no murmur, no gallop. ABD: Soft with tenderness over small umbilical hernia that is easily reducible with skin appears slightly red. Otherwise abdomen is nontender, nondistended, no guarding or rebound. SKIN: Color normal, no rash, warm, dry, intact. EXTREMITIES: Normal appearance, no pedal edema. NEURO: Oriented x4. PSYCH: Normal affect. Const Vital Signs: 09/06/23 17:50 09/06/23 17:55 Temperature 98.1 F Temperature Source Oral Pulse Rate 93 Respiratory Rate 18 Respiratory Effort Short of Breath Respiratory Pattern Tachypnea Blood Pressure 131/79 H Blood Pressure Mean 96 Pulse Ox 93 Oxygen Delivery Method Room Air <Dr. João Douglass MD - Last Filed: 09/06/23 18:50> Physical Exam Const Vital Signs: 09/06/23 17:50 09/06/23 17:55 Temperature 98.1 F Temperature Source Oral Pulse Rate 93 Respiratory Rate 18 Respiratory Effort Short of Breath Respiratory Pattern Tachypnea Blood Pressure 131/79 H Blood Pressure Mean 96 Pulse Ox 93 Oxygen Delivery Method Room Air MDM <MAGEN Retana - Last Filed: 09/06/23 19:29> [facility] Narrative Medical decision making narrative: Patient has chronic abdominal pain and states she vomited once today. Her pain is at baseline. She appears well nontoxic with stable vital signs. She has normal cardiopulmonary exam. There is a small reducible umbilical hernia that is slightly tender to touch. Abdomen otherwise is soft, nontender, and nonperitoneal. Labs show leukocytosis of 13.0?she has chronic leukocytosis from prednisone use from polymyalgia rheumatica. Hemoglobin of 10.7 is around her baseline. She has normal electrolytes and renal function. ALT and alk phos are slightly elevated but AST, bilirubin, lipase are all normal only area of tenderness is over the umbilical hernia so I do not think she has acute liver/gallbladder process. CT shows no acute findings. The attending review of the CT shows the umbilicus fat-containing. 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 It notes possible early pneumonia at the lung bases she has no cough or respiratory symptoms so I do not think antibiotics are indicated. I recommended follow-up with her primary care or GI and she was discharged in stable condition. Differential: Reducible versus incarcerated hernia, diverticulitis, pancreatitis among others Lab Data Labs: Laboratory Results - last 24 hr 09/06/23 09/06/23 18:20 18:57 WBC 13.0 H RBC 3.49 L Hgb 10.7 L Hct 36.3 L MCV 104.0 H MCH 30.7 MCHC 29.5 L RDW Std Deviation 57.7 H RDW Coeff of Khalida 15.0 H Plt Count 325 MPV 10.3 Immature Gran % (Auto) 0.500 Neut % (Auto) 68.8 Lymph % (Auto) 19.6 [place] % (Auto) 9.1 Eos % (Auto) 1.6 Baso % (Auto) 0.4 Absolute Neuts (auto) 9.0 H Absolute Lymphs (auto) 2.55 Nucleated RBC % 0 Sodium 141 Potassium 3.8 Chloride 109 H Carbon Dioxide 28.0 Anion Gap 4 L BUN 18 Creatinine 0.61 Estim Creat Clear Calc 43.32 Est GFR (MDRD) Af Amer 122 Est GFR (MDRD) Non-Af 101 BUN/Creatinine Ratio 29.7 H Glucose 129 H Calcium 9.3 Total Bilirubin 0.40 AST 27 ALT 57 H Alkaline Phosphatase 227 H Total Protein 5.8 L Albumin 3.0 L Globulin 2.8 Albumin/Globulin Ratio 1.1 Lipase 26 Urine Color Yellow Urine Clarity Clear Urine pH 7.0 Ur Specific Epes 1.010 Urine Protein Negative Urine Glucose (UA) Normal Urine Ketones Negative Urine Occult Blood 50 H Urine Nitrite Negative Urine Bilirubin Negative Urine Urobilinogen Normal Ur Leukocyte Esterase 25 H Urine RBC 0-5 SEEN Urine WBC 0 SEEN Ur Squamous Epith Cells 0 SEEN Urine Bacteria 0 SEEN Urine Mucus 0 SEEN Radiography Diagnostic Testing: Clinical Impression(s) from Imaging Studies Abdomen/Pelvis CT 09/06/23 18:06 IMPRESSION: 1. 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 There are simple cyst is also present within the liver which are stable. 2. Minimal atelectasis or early pneumonia at the lung bases. No other acute abnormalities in the abdomen or pelvis. Electronically Signed: Ephraim Grace MD at 19:11 EST , <Dr. João Douglass MD - Last Filed: 09/06/23 18:50> [facility] Lab Data Labs: Laboratory Results - last 24 hr 09/06/23 09/06/23 18:20 18:57 WBC 13.0 H RBC 3.49 L Hgb 10.7 L Hct 36.3 L MCV 104.0 H MCH 30.7 MCHC 29.5 L RDW Std Deviation 57.7 H RDW Coeff of Khalida 15.0 H Plt Count 325 MPV 10.3 Immature Gran % (Auto) 0.500 Neut % (Auto) 68.8 Lymph % (Auto) 19.6 [place] % (Auto) 9.1 Eos % (Auto) 1.6 Baso % (Auto) 0.4 Absolute Neuts (auto) 9.0 H Absolute Lymphs (auto) 2.55 Nucleated RBC % 0 Sodium 141 Potassium 3.8 Chloride 109 H Carbon Dioxide 28.0 Anion Gap 4 L BUN 18 Creatinine 0.61 Estim Creat Clear Calc 43.32 Est GFR (MDRD) Af Amer 122 Est GFR (MDRD) Non-Af 101 BUN/Creatinine Ratio 29.7 H Glucose 129 H Calcium 9.3 Total Bilirubin 0.40 AST 27 ALT 57 H Alkaline Phosphatase 227 H Total Protein 5.8 L Albumin 3.0 L Globulin 2.8 Albumin/Globulin Ratio 1.1 Lipase 26 Urine Color Yellow Urine Clarity Clear Urine pH 7.0 Ur Specific Epes 1.010 Urine Protein Negative Urine Glucose (UA) Normal Urine Ketones Negative Urine Occult Blood 50 H Urine Nitrite Negative Urine Bilirubin Negative Urine Urobilinogen Normal Ur Leukocyte Esterase 25 H Urine RBC 0-5 SEEN Urine WBC 0 SEEN Ur Squamous Epith Cells 0 SEEN Urine Bacteria 0 SEEN Urine Mucus 0 SEEN Radiography Diagnostic Testing: Clinical Impression(s) from Imaging Studies Abdomen/Pelvis CT 09/06/23 18:06 IMPRESSION: 1. 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 There are simple cyst is also present within the liver which are stable. 2. Minimal atelectasis or early pneumonia at the lung bases. No other acute abnormalities in the abdomen or pelvis. Electronically Signed: Ephraim Grace MD at 19:11 EST , Treatment and Re-Evaluation Comments:: I have personally performed a face to face assessment of the patient and have reviewed the LUCINDA Note. I performed a substantive portion of the visit including all aspects of the following. My sawyer findings include: History is abdominal pain umbilical and supraumbilical for at least 2 weeks, patient does not remember exactly. She states the hernia itself in her umbilicus has been there for 2 or 3 years that she can recall. Vomited today, feels sick to her stomach, last bowel movement was normal and just prior to arrival according to her. Exam is erythematous and tender at the umbilicus, there is a small hernia that is easily reducible, and the rest of the abdomen is soft and nontender. Normal bowel sounds are present. No distention. Medical Decison Making Labs, CT, reevaluate after fluids and medications. Other additions or changes: [None] Discharge Plan Triage Chief Complaint: Abd Pain Other Complaint: General Illness Weakness ED Midlevel Provider: [facility] ED Provider: João Douglass Dx/Rx/DC Orders Clinical Impression: Reducible umbilical hernia, Abdominal pain, chronic, generalized Instructions: Abdominal Pain Prescriptions: No Action pantoprazole 40 mg tablet,delayed release (DR/EC) 40 mg PO DAILY albuterol sulfate [Ventolin HFA] 90 mcg/actuation HFA aerosol inhaler 2 puff inhalation Q6H PRN (Reason: SOB) Centrum Silver Women 8 mg iron-400 mcg-300 mcg tablet 1 tab PO DAILY furosemide 20 mg tablet 20 mg PO DAILY potassium chloride 40 mEq/15 mL liquid 40 meq PO DAILY Eliquis 5 mg tablet 5 mg PO BID Hold Instructions: Ordered tramadol 50 mg tablet 50 mg PO BID PRN (Reason: pain) sennosides [senna] 8.6 mg Tablet 8.6 mg PO DAILY polyethylene glycol 3350 [Miralax] 17 gram Powder In Packet 17 g PO DAILY losartan 50 mg tablet 50 mg PO DAILY ascorbic acid (vitamin C) 500 mg Tablet 500 mg PO DAILY prednisone 20 mg tablet 20 mg PO DAILY 5 Days Qty: 5 0RF Rx Instructions: Take 20 mg once a day starting March 05 and then after that is complete go back to your daily 5 mg dose Primary Care Provider: Gil Ricks Referrals: Gil Ricks MD [Primary Care Provider] - Activity Restrictions/Additional Instructions: The umbilical hernia you have contains fat only, not bowel. You can wear an abdominal binder or Reggie wrap of some sort to hold it in for comfort if needed. For your chronic abdominal issues I recommended following up with your primary care or GI Disposition Disposition: Home, Self Care
[2023-09-06] MEDS: Ondansetron 4 MG/2 ML Vial IV (18:19)
[2023-09-06] MEDS: 0.9% Normal Saline (1000mL) 1,000 ML 999 ML IV (18:19)
[2023-09-06 18:26] LABS: Absolute Lymphocyte Count 2.55 X10^3/uL (0.83-4.51); Basophil# 0.05 X10^3/uL; Basophil% 0.4 % (0-1); Eosinophil# 0.21 X10^3/uL; Eosinophils% 1.6 % (0-5); Hematocrit 36.3 % (37-47); Hemoglobin 10.7 g/dL (12.0-15.0); Lymphocyte # 2.55 X10^3/ul (0.83-4.51); Lymphocyte % 19.6 % (19-41); Mean Corp Hgb Conc 29.5 g/dL (32-36); Mean Corpuscular Hgb 30.7 pg (27.0-32.0); Mean Platelet Vol. 10.3 fl (6.2-12.0); Monocyte# 1.19 X10^3/uL; Monocyte% 9.1 % (0-10); NRBC Flagged by Analyzer 0 % (0-5); Neutrophil # 8.98 X10^3/uL (2.7-7.7); Neutrophil % 68.8 % (47-70); Platelet Count 325 K/mm3 (150-450); RBC Distribution Width SD 57.7 fl (35.1-43.9); Red Blood Count 3.49 M/mm3 (4.2-5.4)
[2023-09-06 18:53] LABS: ALB/GLOB Ratio 1.1 RATIO (0.9-2.4); AST(SGOT) 27 U/L (15-37); Alanine Aminotransfer ALT/SGPT 57 U/L (13-56); Alkaline Phosphatase 227 U/L (45-117); Anion Gap 4 (5-15); BUN 18 mg/dL (7-18); BUN/Creat Ratio 29.7 RATIO (10-20); Calcium,Total 9.3 mg/dL (8.5-10.1); Chloride 109 mmol/L (98-107); Creatinine, Serum 0.61 mg/dL (0.55-1.02); EST Glomerular Filtration Rate 101 mL/min (>60); Est Glom Filt Rate - Afr Amer 122 mL/min (>60); Estimated Creatinine Clearance 43.32 ml/min; Globulin 2.8 g/dL (2.2-4.2); Glucose 129 mg/dL (74-106); Lipase 26 U/L (13-75); Potassium 3.8 mmol/L (3.5-5.1); Protein, Total 5.8 g/dL (6.4-8.2); Sodium Level 141 mmol/L (136-145)
[2023-09-06 19:01] LABS: Bacteria 0 SEEN /hpf (None Seen); Mucous, Urine 0 SEEN /hpf (<or=2+); Squamous Epithelial Cells - UA 0 SEEN /hpf (5-10); White Blood Cells 0 SEEN /hpf (0-5)
[2023-09-06] MEDS: Metoclopramide 10 MG/2 ML Vial 2.5 MG IV (19:01)
[2023-09-06 19:05] LABS: Color, Urine Yellow (Yellow); Glucose, Dipstick Normal (Normal); Ketone-Dipstick Negative (Negative); Leukocyte Esterase-Dipstick 25 /ul (Negative); Nitrite-Dipstick Negative (Negative); Occult Blood-Urine 50 /ul (Negative); Protein-Dipstick Negative (Negative); Urine Bilirubin Dipstick Negative (Negative); Urine Clarity Clear (Clear); Urine Urobilinogen Normal (Normal)
[2023-09-06 19:12] LABS: Red Blood Cells-Urine 0-5 SEEN /hpf (0-5)
[2023-09-06 19:48] VITALS: BP 144/85; PULSE 78; RESP 12; O2SAT 98
--- NOTE | 2023-09-06 21:57 | ED.RN ---
attempted to call report to jeremiah appiha with update on patient and eta for return. unable to reach a nurse for report after two attempts.
== END 2023-09-06 22:25 | disposition home or self-care (01) ==
PROVIDERS: Physician Assistant; Emergency Provider Emergency Medicine; PCP Family Medicine; Visit Provider Emergency Medicine
DX: K42.9 Umbilical hernia without obstruction or gangrene (principal); N18.30 Chronic kidney disease, stage 3 unspecified; I12.9 Hypertensive chronic kidney disease with stage 1 through stage 4 chronic kidney disease, or unspecified chronic kidney disease; G89.29 Other chronic pain; Z90.49 Acquired absence of other specified parts of digestive tract
CPT/HCPCS: 74177; 80053; 81001; 83690; 85025; 96361; 96374; 96375; 99285; J7030; Q9967; A4216; J2405